=== PATIENT | female | born 1970 | race Caucasian/White ===

== ENCOUNTER 2016-04-16 13:15 | Inpatient (IN) ==
[2016-04-16] MEDS ORDERED: *HR* Promethazine 25 MG/ML VIAL IVP ONE (13:28)
[2016-04-16] MEDS ORDERED: 0.9 % Sodium Chloride 1,000 ML IV ONE ×2 (13:49→16:49)
[2016-04-16] MEDS ORDERED: Metoclopramide 10 MG/2 ML VIAL IVP ONE (13:49)
[2016-04-16] MEDS ORDERED: Ketorolac 30 MG/ML VIAL IV ONE (13:50)
--- NOTE | 2016-04-16 14:07 | Emergency Department Note ---
Disposition Clinical Impression: Malignant hypertension, Tension headache Abdominal pain Qualifiers: Abdominal location: unspecified location Qualified Code(s): R10.9 - Unspecified abdominal pain Nausea & vomiting Qualifiers: Vomiting type: cyclical vomiting Vomiting Intractability: unspecified Qualified Code(s): G43.A0 - Cyclical vomiting, not intractable Disposition: Admitted As Inpatient Condition: Good Referrals: NO,PCP [Primary Care Provider] - Forms: ED Satisfaction Letter Time of Disposition: 17:56 General Adult HPI - General Chief complaint: ED Headache Stated complaint: HTN / N&V / Headache Time Seen by Provider: 04/16/16 13:45 Source: patient, family Mode of arrival: ambulatory Limitations: no limitations Nursing Notes Reviewed: Yes Vital Signs Reviewed: Yes - History of Present Illness HPI Narrative: Patient presents emergency room for evaluation nausea vomiting headache and hypertension. She was seen here just yesterday for similar symptoms. She was home last night and progression of symptoms or she is throwing up again. They had attempted to use the home medication and then wander evaluated. Patient's only symptoms on and off for the last 2013. The symptoms come on and last about 4 months at a time. She has had multiple evaluations by outside providers and has not found a source for this at this time. Patient is comfortable at this point. She does complain of nausea vomiting and headache. Denies any recent illnesses no chest pain shortness of breath no fevers or chills at this time. Patient is crying and distressed on presentation Onset (ago): day(s) Location: head, abdomen Radiation: non-radiation Pain Severity: moderate Pain Scale: 9 Quality: aching Consistency: constant Improves with: nothing Worsens with: nothing Associated symptoms: Reports: headaches, loss of appetite, nausea/vomiting Treatments Prior to Arrival: none - Related Data Home Medications Medication Instructions Recorded Confirmed BuPROPion SR (12 HR) [Wellbutrin 150 mg PO BID 12/07/15 04/16/16 SR] Labetalol HCl 200 mg PO BID 12/07/15 04/16/16 Norethindrone 0.35 mg PO DAILY PRN 12/07/15 04/16/16 Sertraline [Zoloft] 50 mg PO DAILY 12/07/15 04/16/16 Previous Rx's Medication Instructions Recorded Metoclopramide [Reglan] 5 mg PO Q6HR PRN #15 [email or web address] 12/10/15 Lisinopril [Zestril] 5 mg PO DAILY #15 tablet 12/23/15 Allergies Allergy/AdvReac Type Severity Reaction Status Date / Time No Known Allergies Allergy Verified 04/15/16 05:45 All systems ED: reviewed and negative except as stated. Constitutional: Denies: fever, chills Eyes: Reports: vision change Cardiovascular: Denies: chest pain (Blurry vision), palpitations, dyspnea on exertion Respiratory: Denies: dyspnea, wheezes, hemoptysis Gastrointestinal: Reports: abdominal pain, nausea, vomiting. Denies: diarrhea Genitourinary: Denies: dysuria, frequency Musculoskeletal: Denies: back pain, neck pain Neurological: Reports: headache. Denies: weakness Past Medical History - Past Medical History Attestation: Yes The following information was validated with the patient. Source: patient Medical history: Reports: hypertension, migraine Surgical history: Reports: , cholecystectomy, other Psychiatric history: Reports: depression SAFETY TRAINER history: Reports: no SAFETY TRAINER history - Social History Smoking Status: Never smoker Smokeless Tobacco Status: No Alcohol use: Reports: rarely Drug use: Reports: none Physical Exam - General Limitations: no limitations General appearance: alert - Head Head exam: atraumatic, normocephalic, normal inspection - Eye Eye exam: Present: normal appearance, PERRL, EOMI - ENT ENT exam: normal exam, normal oropharynx, mucous membranes moist - Neck Neck exam: Present: normal inspection, full ROM, trachea midline. Absent: tenderness, meningismus, lymphadenopathy - Chest Chest inspection: Present: normal inspection, symmetric chest wall rise. Absent : tenderness - Respiratory Respiratory exam: Present: normal lung sounds bilaterally. Absent: respiratory distress, wheezes, stridor, accessory muscle use - Cardiovascular Cardiovascular exam: Present: regular rate, normal rhythm, normal heart sounds - Abdominal Exam Abdominal exam: Present: soft, tenderness (Tenderness noted diffusely across the abdomen no guarding no rigidity no peritoneal symptoms) - Extremities Exam Extremities exam: Present: normal inspection, full ROM, pedal edema. Absent: tenderness - Back Exam Back exam: Present: normal inspection, full ROM. Absent: tenderness, CVA tenderness (R), CVA tenderness (L) - Neurological Exam Neurological exam: Present: alert, oriented X3, CN II-XII intact, normal gait - Psychiatric Psychiatric exam: Present: normal affect, normal mood - Skin Skin exam: Present: warm, dry, intact, normal color Course Course Narrative: Patient seen and examined the time of arrival. See history of present illness. 46-year-old female presents emergency room with hypertension nausea and vomiting and abdominal pain. Patient has a symptoms on and off for approximately 4 months at a time. She has had these for approximately 2-1/2 years at this point. Patient was seen and evaluated in this emergency room just 2 days ago and was discharged home with non-concerning workup at that point. Patient is back here again today with what she is describing is significantly elevated blood pressure at home. Will send serum presentation show hypertension intermittent tachycardia. She is afebrile. Physical examination shows a morbidly obese female who appears in some mild distress. Patient's symptoms appear to be exaggerated on presentation. She has poorly controlled nausea and vomiting with intramuscular dose of Phenergan provided to in the waiting area of our emergency room. Her lungs are clear heart is regular abdomen is soft but does have tenderness diffusely. No guarding or rigidity noted. She has full range of motion in upper and lower extremities. There is no asymmetry to the extremity she has no pitting edema. She has good palpable radial DP and PT pulses. Patient at this point has stable presentation in comparison to multiple previous evaluations and several other incidences like this in the past. P physical examination is benign except for the abdominal discomfort. Patient had previous workup as well as imaging studies reviewed. No other acute imaging studies were performed in the last 6 months. Radiation exposure was discussed with the patient but she is requesting a further evaluation. IV hydration and nausea medication basic laboratory workup including EKG chest x-ray CT of the head and CT of the abdomen ordered at this time. Urinalysis pending. Patient has no other acute findings on physical exam disposition pending workup. - Reevaluation(s) Reevaluation #1: Patient has had mild resolution of her symptoms here with pain medication only medication being provided. Blood pressure is 189/100 of this point. After reviewing patient's symptoms and history is finally disclosed to me that when the patient's blood pressure is under 140 systolic over symptoms go away. All of her symptoms appear to be secondary to hypertension or some anxiety related issue at this point. We will continue to monitor her pressure medication provided this time. Disposition pending completion of workup Time: 16:00 Reevaluation #2: Patient is still persistently hypertensive with 2 doses of IV labetalol as well as morphine. Patient be placed on nitro drip now. Blood pressures remained at 190-200 systolic with medical intervention. Patient is still having poorly controlled nausea and vomiting. Patient this point will be placed on nitro drip and discussed with the hospitalist for admission what appears to be malignant hypertension but no visible endorgan damage. Monitors admission process is completed Time: 17:52 Reevaluation #3: Nitroglycerin drip ordered and started this time. Patient is still unresponsive. We will continue to titrate up until blood pressure is more manageable and will admit detailed review the patient's presentation symptoms of medical intervention were discussed with the hospitalist Dr. reyes in great detail. Her recommendation at this time or to add on hydralazine 10 mg. 1 inch informed patient of our discussion and recommendation for admission. Patient's family was happy with the projected course of care disposition. Patient's vital signs been persistently hypertensive at the hospitalist is aware. We will continue to monitor his hydralazine was given and nitroglycerin was titrated for symptom control. Patient is stable and good medical condition. She will be observed here in the emergency room until the admission process is completed Time: 19:01 Additional Reevaluation(s): Hospitalist is at the bedside evaluating the patient. Hydralazine was given. Blood pressure is still elevated at 196/111. Nitro drip to continue to be titrated for symptoms. Patient stable admission process to be completed Vital Signs Temperature 97.9 F 04/16/16 13:17 Pulse Rate 77 04/16/16 13:17 Respiratory Rate 16 04/16/16 13:17 Blood Pressure 202/109 04/16/16 13:17 O2 Sat by Pulse Oximetry 97 04/16/16 13:17 Temperature 97.9 F 04/16/16 13:17 Pulse Rate 78 04/16/16 19:48 Respiratory Rate 16 04/16/16 19:48 Blood Pressure 217/121 04/16/16 19:48 O2 Sat by Pulse Oximetry 96 04/16/16 19:48 Oxygen Delivery Oxygen Delivery Room Air Medical Decision Making - MDM Narrative Medical decision making narrative: Nausea vomiting, hypertension, abdominal pain - Medical Records Medical records reviewed: Yes I reviewed the patient's medical records. - Lab Data Lab results reviewed: Yes I reviewed the patient's lab results. Result diagrams: 04/16/16 14:11 04/16/16 14:11 Lab Results 04/16/16 04/16/16 04/16/16 Range/Units 14:11 14:11 16:20 WBC 14.6 H (4.3-11.1) K/mcL RBC 5.38 H (3.82-4.97) M/mcL Hgb 15.7 H (11.5-15.4) g/dL Hct 45.6 H (35.3-44.9) % MCV 84.8 (83.0-100.0) fL MCH 29.2 (28.0-33.3) pg MCHC 34.4 (31.6-35.5) g/dL RDW 13.0 (11.5-14.5) % Plt Count 312 (140-400) K/mcL MPV 10.5 (9.4-12.4) fL Immature Gran % 0.4 (0-4) % Seg Neutrophils % 74.7 % Lymphocytes % 19.2 % Monocytes % 5.2 % Eosinophils % 0.1 % Basophils % 0.4 % Neutrophils # 10.9 H (1.6-8.9) K/mcL Lymphocytes # 2.8 (0.6-4.6) K/mcL Monocytes # 0.8 (0.0-1.3) K/mcL Eosinophils # 0.0 (0.0-0.6) K/mcL Basophils # 0.1 (0.0-0.2) K/mcL Sodium 135 L (136-145) mEq/L Potassium 3.2 L (3.5-4.5) mEq/L Chloride 99 (98-109) mEq/L Carbon Dioxide 24 (19-29) mEq/L BUN 10 (7-20) mg/dL Creatinine 0.72 (0.57-1.11) mg/dL Est GFR ( Amer) > 60 (> 60) Est GFR (Non-Af Amer) > 60 (> 60) BUN/Creatinine Ratio 14 (6-26) Glucose 119 H (70-99) mg/dL Calculated Osmolality 280 (280-300) Calcium 10.2 (8.6-10.8) mg/dL Urine Color (Yellow) Urine Clarity (Clear) Urine pH (5.0-8.0) pH Units Ur Specific [place] (1.010-1.025) Urine Protein (Neg-Trace) mg/dL Urine Glucose (UA) (Normal) mg/dL Urine Ketones (Negative) mg/dL Urine Blood (Negative) Urine Nitrite (Negative) Urine Bilirubin (Negative) Urine Urobilinogen (Normal) mg/dL Ur Leukocyte Esterase (Negative) Urine Microscopic RBC (0-3) per hpf Urine Microscopic WBC (0-3) per hpf Ur Squamous Epith Cells (None-Few) per lpf Urine Bacteria (None-Few) per hpf Hyaline Casts (None-Few) per lpf Urine Mucus (Few) Ur Culture Indicated? (NO) Urine Test Negative (Negative) 04/16/16 Range/Units 16:20 WBC (4.3-11.1) K/mcL RBC (3.82-4.97) M/mcL Hgb (11.5-15.4) g/dL Hct (35.3-44.9) % MCV (83.0-100.0) fL MCH (28.0-33.3) pg MCHC (31.6-35.5) g/dL RDW (11.5-14.5) % Plt Count (140-400) K/mcL MPV (9.4-12.4) fL Immature Gran % (0-4) % Seg Neutrophils % % Lymphocytes % % Monocytes % % Eosinophils % % Basophils % % Neutrophils # (1.6-8.9) K/mcL Lymphocytes # (0.6-4.6) K/mcL Monocytes # (0.0-1.3) K/mcL Eosinophils # (0.0-0.6) K/mcL Basophils # (0.0-0.2) K/mcL Sodium (136-145) mEq/L Potassium (3.5-4.5) mEq/L Chloride (98-109) mEq/L Carbon Dioxide (19-29) mEq/L BUN (7-20) mg/dL Creatinine (0.57-1.11) mg/dL Est GFR ( Amer) (> 60) Est GFR (Non-Af Amer) (> 60) BUN/Creatinine Ratio (6-26) Glucose (70-99) mg/dL Calculated Osmolality (280-300) Calcium (8.6-10.8) mg/dL Urine Color Dark Yellow (Yellow) Urine Clarity Cloudy A (Clear) Urine pH 6.5 (5.0-8.0) pH Units Ur Specific [place] > 1.030 H (1.010-1.025) Urine Protein >=300 H (Neg-Trace) mg/dL Urine Glucose (UA) Normal (Normal) mg/dL Urine Ketones 80 H (Negative) mg/dL Urine Blood Negative (Negative) Urine Nitrite Negative (Negative) Urine Bilirubin Small H (Negative) Urine Urobilinogen Normal (Normal) mg/dL Ur Leukocyte Esterase Negative (Negative) Urine Microscopic RBC 5-15 H (0-3) per hpf Urine Microscopic WBC 5-15 H (0-3) per hpf Ur Squamous Epith Cells Many H (None-Few) per lpf Urine Bacteria Many H (None-Few) per hpf Hyaline Casts None Seen (None-Few) per lpf Urine Mucus Many H (Few) Ur Culture Indicated? YES A (NO) Urine Test (Negative) - Radiology Data Radiology results reviewed: Yes I reviewed the patient's radiology results. - EKG Data EKG #1 EKG attestation: Yes I reviewed and interpreted this EKG. EKG shows normal: sinus rhythm, axis, intervals, QRS complexes, ST-T waves Rate: tachycardia Rhythm: NSR [place]/QRS: normal When compared to previous EKG there are: no significant changes Interpretation: no acute changes, unchanged when compared to prior tracing (date )
[2016-04-16] MEDS ORDERED: Promethazine 25 MG in 0.9 % Sodium Chloride 50 ML IVPB ONE (14:14)
--- NOTE | 2016-04-16 14:25 | Emergency Department Note ---
START Narrative - START START: I examined this patient and my medical decision-making was reviewed with the CUSTOMER SERVICES COORDINATOR/PA/Advanced Practice Nurse/Resident Physician. I agree with the documented findings, disposition and treatment plan as described except to the extent set forth below. ED attending: Patient's emergency medicine resident Dr. Maddox. Please see copy of this note for H&P evaluation and management and ED disposition. We both had independent [id number] time in contact with this patient. Briefly: A 6-year-old female presents with abdominal cramping nausea and vomiting. Has had multiple workups in the past including GI consultation and multiple imaging studies. Patient was just seen by myself yesterday and Dr. Ordoñez. Please see copy of our notes. Patient was discharged home. She said she maintained elevated blood pressure and intractable nausea and vomiting all night is back with same symptoms. Patient is getting IV fluids anti-medics labs. Admission anticipated. Patient stable.
[2016-04-16 14:30] LABS: Basophils # 0.1 K/mcL (0.0-0.2); Basophils % 0.4 %; Eosinophils % 0.1 %; Hematocrit 45.6 % (35.3-44.9); Hemoglobin 15.7 g/dL (11.5-15.4); Immature Granulocytes % 0.4 % (0-4); Lymphocytes # 2.8 K/mcL (0.6-4.6); Lymphocytes % 19.2 %; Mean Corpuscular HGB Conc 34.4 g/dL (31.6-35.5); Mean Corpuscular Hemoglobin 29.2 pg (28.0-33.3); Mean Corpuscular Volume 84.8 fL (83.0-100.0); Mean Platelet Volume 10.5 fL (9.4-12.4); Monocytes # 0.8 K/mcL (0.0-1.3); Monocytes % 5.2 %; Neutrophils # 10.9 K/mcL (1.6-8.9); Platelet Count 312 K/mcL (140-400); Red Blood Count 5.38 M/mcL (3.82-4.97); Segmented Neutrophils % 74.7 %
[2016-04-16 14:42] LABS: BUN/Creatinine Ratio 14 (6-26); Blood Urea Nitrogen 10 mg/dL (7-20); Calcium 10.2 mg/dL (8.6-10.8); Carbon Dioxide 24 mEq/L (19-29); Chloride 99 mEq/L (98-109); Glucose 119 mg/dL (70-99); Osmolality,Calculated 280 (280-300); Potassium 3.2 mEq/L (3.5-4.5); Sodium 135 mEq/L (136-145); eGFR For African Americans > 60 (> 60); eGFR For Non-African Americans > 60 (> 60)
[2016-04-16] MEDS ORDERED: *HR* Labetalol 20 MG/4 ML SYRINGE IVP ONE ×2 (15:53→16:57)
[2016-04-16 16:33] LABS: Bilirubin,Urine Small (Negative); Blood,Urine Negative (Negative); Clarity,Urine Cloudy (Clear); Color,Urine Dark Yellow (Yellow); Glucose,Urine (UA) Normal (Normal); Ketones,Urine 80 mg/dL (Negative); Leukocyte Esterase,Urine Negative (Negative); Nitrite,Urine Negative (Negative); PH,Urine 6.5 pH Units (5.0-8.0); Protein,Urine >=300 mg/dL (Neg-Trace); Specific Gravity,Urine > 1.030 (1.010-1.025); Urobilinogen,Urine Normal (Normal)
[2016-04-16 16:34] LABS: Hyaline Casts,Urine None Seen per lpf (None-Few); Squamous Epithelial Cell,Urine Many per lpf (None-Few)
[2016-04-16 16:46] LABS: Bacteria,Urine Many per hpf (None-Few); Mucus,Urine Many (Few)
[2016-04-16] MEDS ORDERED: *HR* Morphine 2 MG/ML SYRINGE IV ONE (17:32)
[2016-04-16] MEDS ORDERED: Nitroglycerin 25 MG/250 ML INFUS..BTL IVC SCH (18:00)
[2016-04-16] MEDS ORDERED: Folic Acid 1 MG in D5% in Water 50 ML IVPB STA (20:01)
[2016-04-16] MEDS ORDERED: *HR* HYDROcodone/Acet 5/325 mg TABLET PO PRN (21:37)
[2016-04-16] MEDS ORDERED: Acetaminophen 325 MG TABLET PO PRN (21:37)
[2016-04-16] MEDS ORDERED: Naloxone 0.4 MG/ML INJ IVP PRN (21:37)
[2016-04-16] MEDS ORDERED: *HR* Promethazine 25 MG/ML VIAL IVP PRN (21:37)
[2016-04-16] MEDS: Pantoprazole 40 MG VIAL IVP SCH (22:32)
[2016-04-16] MEDS: Nitroglycerin 25 MG/250 ML INFUS..BTL IVC SCH (22:33)
[2016-04-16] MEDS: *HR* Morphine 2 MG/ML SYRINGE IVP PRN (22:33)
[2016-04-16 22:42] LABS: Magnesium 1.9 mg/dL (1.6-2.6); Phosphorous 2.3 mg/dL (2.3-4.7)
[2016-04-17] MEDS: Thiamine (B-1) 100 MG in D5% in Water 50 ML IVPB SCH ×2 (02:04→08:05)
[2016-04-17 02:54] LABS: Protein/Creatinine Ratio,Urine 0.17 mg/mg (0-0.20)
[2016-04-17] MEDS: *HR* Morphine 2 MG/ML SYRINGE IVP PRN (05:03)
[2016-04-17 05:26] LABS: Basophils # 0.1 K/mcL (0.0-0.2); Basophils % 0.4 %; Eosinophils % 0.1 %; Hematocrit 40.6 % (35.3-44.9); Immature Granulocytes % 0.4 % (0-4); Lymphocytes % 15.7 %; Mean Corpuscular Hemoglobin 29.1 pg (28.0-33.3); Mean Corpuscular Volume 85.7 fL (83.0-100.0); Mean Platelet Volume 10.4 fL (9.4-12.4); Monocytes # 1.5 K/mcL (0.0-1.3); Monocytes % 7.9 %; Neutrophils # 14.3 K/mcL (1.6-8.9); Platelet Count 300 K/mcL (140-400); Red Blood Count 4.74 M/mcL (3.82-4.97); Red Cell Distribution Width 12.9 % (11.5-14.5); Segmented Neutrophils % 75.5 %
[2016-04-17 05:29] LABS: Hemoglobin 13.8 g/dL (11.5-15.4)
[2016-04-17] MEDS ORDERED: *HR* LORazepam 2 MG/ML VIAL IVP PRN (05:42)
[2016-04-17] MEDS ORDERED: 0.9 % Sodium Chloride 1,000 ML IVC SCH (05:45)
[2016-04-17 05:50] LABS: BUN/Creatinine Ratio 19 (6-26); Blood Urea Nitrogen 12 mg/dL (7-20); Calcium 9.6 mg/dL (8.6-10.8); Carbon Dioxide 20 mEq/L (19-29); Chloride 102 mEq/L (98-109); Glucose 118 mg/dL (70-99); Osmolality,Calculated 281 (280-300); Potassium 3.2 mEq/L (3.5-4.5); Sodium 135 mEq/L (136-145); eGFR For African Americans > 60 (> 60); eGFR For Non-African Americans > 60 (> 60)
--- NOTE | 2016-04-17 05:53 | Internal Med History&Physical ---
<Ariadna Mcneil - Last Filed: 04/17/16 06:41> Date of Encounter: 04/16/16 Time of Encounter: 21:00 Assessment and Plan (1) Malignant hypertension Status: Acute BP upon presentation to the hospital 202/109 Patient given 2 doses of labetalol 10 mg IV, 10 mg hydralazine IV, and 4 mg IV morphine in the ED Patient started on nitroglycerin drip and titrated to [address] patient on telemetry and continue to monitor Labs, pending -Metanephrine -aldosterone, renin activity -5 HIAA random urine, 5 HIAA 24 h urine -tsh, T3, free T4 -Prolactin -Urine potassium, urine sodium Consider home medications as cause of hypertension including Wellbutrin, Zoloft , Reglan Consult neurology Consult nephrology (2) Nausea & vomiting Status: Acute Continue IV Phenergan prn Continue IV fluid hydration Qualifiers: Vomiting type: cyclical vomiting Vomiting Intractability: intractable Qualified Code(s): G43.A1 - Cyclical vomiting, intractable (3) UTI (urinary tract infection) Status: Acute WBC 14.6, lymphocytes elevated at 10.9 Will treat empirically with Rocephin Culture, pending Qualifiers: Urinary tract infection type: acute cystitis Hematuria presence: with hematuria Qualified Code(s): N30.01 - Acute cystitis with hematuria (4) Abdominal pain Status: Acute Abdominal pain likely secondary to intractable vomiting for 2 days IV phenegran prn to treat vomiting CT abdomen without acute intra-abdominal or intrapelvic process, urinary stones , hydronephrosis -Diffuse hepatic steatosis -Stable uterine fibroids. Qualifiers: Abdominal location: generalized Qualified Code(s): R10.84 - Generalized abdominal pain (5) Hyponatremia Status: Acute Repeat labs in a.m. Random urine sodium (6) Hypokalemia Status: Acute Repeat labs in a.m. Random urine potassium (7) Dehydration Status: Acute Patient received 2L fluids in ED IVF 100ml/hr Internal Medicine - H&P: HPI Chief complaint: hypertension, headache, nausea, vomiting Admitted From: Emergency Dept Plans for Post Hospital Care: Home History of present illness: Ms. Stoddard is a 46 year old female who presents to the hospital with her mother. Patient states that on 04/14/2016 she began having an episode of headache with nausea and vomiting after eating lunch. Patient states that she took her blood pressure at home which was greater than 200 systolic. Patient states that her head is pounding. Headache is located at bilateral temples and radiates inferiorly to the neck. She also has pain across the frontal face and maxillary face. She feels like her head is going to explode. She states that she does have a history of migraine, but this is not a migraine. She feels dizzy, lightheaded, woozy, and struggles to ambulate. Admits multiple episodes of nausea and vomiting. These episodes come in waves. Admits chest pain episode yesterday associated with palpitations, racing heart, diaphoresis, chills. Admits diarrhea at the onset of this episode 2 days ago. Admits aversion to smell at this time. Patient denies blurry vision, double vision, changes to vision, and scotoma. She also denies photophobia and phonophobia. Patient states that she presented to the ED 04/15/2016 for this problem, was seen and evaluated, and was discharged home. Patient has had multiple such episodes in the past. She said episodes began in 2013 when she was with her daughter Hoa. Patient had to have cholecystectomy during the at [facility]. Daughter Hoa was born premature at 25 weeks. Daughter 4 weeks after . Episodes of hypertension continued in 2013. Hypertensive episodes returned in 2015, and patient was seen in various hospitals in September, October, November, and December. Patient was admitted in December 2015 for hypertensive urgency. Past Med Surg Social Fam HX - Past Medical History Medical history: hypertension, migraine, other (Nondiabetic gastroparesis) Psychiatric history: depression - Past Surgical History Surgical History: , cholecystectomy, other - Social History Smoking Status: Never smoker Smokeless Tobacco Status: No Alcohol use: rarely Drug use: none - Family History Mother Name: Keila abebe Age: 71 Living Status: Still Living Hx Family Endocrine Disorder: Yes (DM) Internal Medicine - H&P: Meds BuPROPion SR (12 HR) [Wellbutrin SR] 150 mg PO BID 12/07/15 [History] Labetalol HCl 200 mg PO BID 12/07/15 [History] Norethindrone 0.35 mg PO DAILY PRN 12/07/15 [History] Sertraline [Zoloft] 50 mg PO DAILY 12/07/15 [History] Metoclopramide [Reglan] 5 mg PO Q6HR PRN #15 ud.liq 12/10/15 [Rx] Lisinopril [Zestril] 5 mg PO DAILY #15 tablet 12/23/15 [Rx] Blood Pressure Test Kit-Medium [Blood Pressure Cuff Monitor] 1 each MC DAILY #1 kit 04/18/16 [Rx] CloNIDine HCl 0.1 mg PO DAILY PRN #20 tablet 04/18/16 [Rx] Topiramate [Topamax] 50 mg PO HS #30 cap.sprink 04/18/16 [Rx] Allergies No Known Allergies Allergy (Verified 04/15/16 05:45) All Systems PM: A 10-system review of systems was performed and is negative for pertinent findings except as documented above in the HPI. - Constitutional Constitutional: chills, excessive sweating, no fever(s) - EENT Eyes: no blurry vision, no change in vision, no diplopia, no floaters, no loss of vision, no photophobia, no seeing flashes, no spots in vision Nose, mouth and throat: facial pain (Frontal and maxillary), neck pain - Cardiovascular Cardiovascular ROS IM: diaphoresis, irregular heart rhythm, lightheadedness, palpitations - Gastrointestinal Gastrointestinal: diarrhea, nausea, vomiting, no hematochezia, no melena - Musculoskeletal Musculoskeletal ROS IM: no myalgias - Psychiatric Psychiatric: anxiety, depression - Constitutional Vitals: Temp Pulse Resp BP Pulse Ox 98.6 F 70 13 156/95 96 04/17/16 00:30 04/17/16 00:30 04/17/16 00:30 04/17/16 00:30 04/17/16 00:30 General appearance: Present: mild distress (vomiting intermittently during interview), A&O X 3, pleasant (tearful when discussing loosing her daughter), answers questions appropriately - Head Head exam: Present: atraumatic, normal inspection, normocephalic - Eye Eye exam: Present: EOMI - ENT ENT exam: Present: mucous membranes dry - Neck Neck exam general surgery: Present: full ROM, normal inspection, tenderness ( posterior neck at OA joint on left), supple - Respiratory Respiratory exam: Present: CTAB. Absent: rhonchi, wheezes - Cardiovascular Cardiovascular exam: Present: RRR, +S1, +S2 - GI/Abdominal GI/Abdominal exam: Present: normal bowel sounds, soft, tenderness (tenderness to palpation in all quadrants). Absent: distended - Extremities Exam Extremities exam: Present: normal inspection. Absent: pedal edema - Neurological Exam Neurological exam: Present: CN II-XII intact, strengths equal and symetr throughout. Absent: facial droop, speech deficit - Psychiatric Psychiatric exam: Present: normal affect, normal mood - Skin Skin exam: Present: warm Internal Med - H&P Results - Labs CBC & Chem 7: 04/17/16 05:06 04/17/16 05:06 Labs: Short CBC 04/17/16 Range/Units 05:06 WBC 18.9 H (4.3-11.1) K/mcL Hgb 13.8 D (11.5-15.4) g/dL Hct 40.6 (35.3-44.9) % Plt Count 300 (140-400) K/mcL Neutrophils # 14.3 H (1.6-8.9) K/mcL Cardiac Enzymes 04/16/16 Range/Units 22:22 Troponin I 0.01 (0-0.03) ng/mL - EKG Data -: EKG Interpreted by Myself EKG shows normal: sinus rhythm Rate: normal - Impressions Abdomen/Pelvis CT 04/16/16 13:51 IMPRESSION: 1. No acute intra-abdominal or intrapelvic process. 2. No urinary stones or hydronephrosis. 3. Diffuse hepatic steatosis. 4. Patient status post cholecystectomy. 5. Stable uterine fibroids. D/ / 04/16/2016 15:32:03 Avel Guaman MD / toby Interpreting Provider: Avel Guaman MD Head CT 04/16/16 13:51 IMPRESSION: No acute intracranial abnormality. D/ / Sai Rajan MD / Sai Rajan MD Interpreting Provider: Sai Rajan MD Chest X-Ray 04/16/16 15:03 IMPRESSION: No acute cardiopulmonary disease. D/ / 04/16/2016 15:38:31 Avel Guaman MD / dwayne Interpreting Provider: Avel Guaman MD - Attending Attestation I examined this patient and my medical decision-making was reviewed with the BOAT CAPTAIN/PA/Advanced Practice Nurse/Resident Physician. I agree with the documented findings, disposition and treatment plan as described except to the extent set forth below. <Neil Antoine - Last Filed: 04/21/16 00:53> Date of Encounter: 04/16/16 Internal Medicine - H&P: HPI History of present illness: Ms. Stoddard is a 46 year old female to [facility] with a chief complaint of controlled hypertension associated with intractable nausea, vomiting and headache. The patient was visited interviewed and examined. I examined this patient and my medical decision-making was reviewed with the Resident Physician. I agree with the documented findings, disposition and treatment plan as described except to the extent set forth below. Cumulative laboratory and radiographic database was reviewed and considered and discussed. Pertinent ancillary medical records including ECW and PCI documentation was available was reviewed and considered. Given the patient's presenting concerns, past medical history, clinical findings and symptoms, she is admitted at this time to undergo further evaluation and disposition. Orders were written as per the computerized physician job order clerk system........................ All Systems PM: A 10-system review of systems was performed and is negative for pertinent findings except as documented above in the HPI. - Constitutional Vitals: Temp Pulse Resp BP Pulse Ox 98.2 F 84 16 121/62 96 04/18/16 11:10 04/18/16 11:55 04/18/16 11:10 04/18/16 11:10 04/18/16 11:10 Internal Med - H&P Results - Labs CBC & Chem 7: 04/18/16 06:22 04/18/16 06:22 - Impressions Abnormal lab results Sodium 134 mEq/L (136-145) L 04/18/16 06:22 Potassium 3.3 mEq/L (3.5-4.5) L 04/18/16 06:22 Calculated Osmolality 278 (280-300) L 04/18/16 06:22 Free T4 1.62 ng/dl (0.70-1.48) H 04/18/16 06:22 Prolactin 42.22 ng/mL (5.18-26.53) H 04/18/16 06:22 Urine Clarity Cloudy (Clear) A 04/16/16 16:20 Ur Specific Stanley > 1.030 (1.010-1.025) H 04/16/16 16:20 Urine Protein >=300 mg/dL (Neg-Trace) H 04/16/16 16:20 Urine Ketones 80 mg/dL (Negative) H 04/16/16 16:20 Urine Bilirubin Small (Negative) H 04/16/16 16:20 Urine Microscopic RBC 5-15 per hpf (0-3) H 04/16/16 16:20 Urine Microscopic WBC 5-15 per hpf (0-3) H 04/16/16 16:20 Ur Squamous Epith Cells Many per lpf (None-Few) H 04/16/16 16:20 Urine Bacteria Many per hpf (None-Few) H 04/16/16 16:20 Urine Mucus Many (Few) H 04/16/16 16:20 Ur Culture Indicated? YES (NO) A 04/16/16 16:20 Microalb/Creat Ratio 54 (0-30) H 04/17/16 02:15 Urine Total Protein 30 mg/dL (1-14) H 04/17/16 02:15 Laboratory Results WBC 9.6 K/mcL (4.3-11.1) 04/18/16 06:22 RBC 4.97 M/mcL (3.82-4.97) 04/18/16 06:22 Hgb 14.4 g/dL (11.5-15.4) 04/18/16 06:22 Hct 43.3 % (35.3-44.9) 04/18/16 06:22 MCV 87.1 fL (83.0-100.0) 04/18/16 06:22 MCH 29.0 pg (28.0-33.3) 04/18/16 06:22 MCHC 33.3 g/dL (31.6-35.5) 04/18/16 06:22 RDW 13.2 % (11.5-14.5) 04/18/16 06:22 Plt Count 258 K/mcL (140-400) 04/18/16 06:22 MPV 10.3 fL (9.4-12.4) 04/18/16 06:22 Immature Gran % 0.4 % (0-4) 04/18/16 06:22 Seg Neutrophils % 56.5 % 04/18/16 06:22 Lymphocytes % 30.1 % 04/18/16 06:22 Monocytes % 10.2 % 04/18/16 06:22 Eosinophils % 2.1 % 04/18/16 06:22 Basophils % 0.7 % 04/18/16 06:22 Neutrophils # 5.5 K/mcL (1.6-8.9) 04/18/16 06:22 Lymphocytes # 2.9 K/mcL (0.6-4.6) 04/18/16 06:22 Monocytes # 1.0 K/mcL (0.0-1.3) 04/18/16 06:22 Eosinophils # 0.2 K/mcL (0.0-0.6) 04/18/16 06:22 Basophils # 0.1 K/mcL (0.0-0.2) 04/18/16 06:22 Immature Plt Fraction 4.7 % (1.1-6.1) 04/18/16 06:22 Sodium 134 mEq/L (136-145) L 04/18/16 06:22 Potassium 3.3 mEq/L (3.5-4.5) L 04/18/16 06:22 Chloride 101 mEq/L (98-109) 04/18/16 06:22 Carbon Dioxide 23 mEq/L (19-29) 04/18/16 06:22 BUN 13 mg/dL (7-20) 04/18/16 06:22 Creatinine 0.84 mg/dL (0.57-1.11) 04/18/16 06:22 Est GFR ( Amer) > 60 (> 60) 04/18/16 06:22 Est GFR (Non-Af Amer) > 60 (> 60) 04/18/16 06:22 BUN/Creatinine Ratio 15 (6-26) 04/18/16 06:22 Glucose 98 mg/dL (70-99) 04/18/16 06:22 Est Mean Plasma Glucose 100 mg/dl 04/18/16 06:22 Hemoglobin A1c 5.1 % (-5.6) 04/18/16 06:22 Calculated Osmolality 278 (280-300) L 04/18/16 06:22 Calcium 9.7 mg/dL (8.6-10.8) 04/18/16 06:22 Phosphorus 3.1 mg/dL (2.3-4.7) 04/18/16 06:22 Magnesium 1.7 mg/dL (1.6-2.6) 04/18/16 06:22 Troponin I 0.01 ng/mL (0-0.03) 04/16/16 22:22 Triglycerides 149 mg/dL (< 150) 04/18/16 06:22 Cholesterol 162 mg/dL (< 200) 04/18/16 06:22 LDL Cholesterol, Calc 89 mg/dL (0-99) 04/18/16 06:22 VLDL Cholesterol, Calc 30 mg/dL (< 31) 04/18/16 06:22 HDL Cholesterol 43 mg/dL (40-59) 04/18/16 06:22 Cholesterol/HDL Ratio 3.8 (0-4.9) 04/18/16 06:22 Aldosterone 4.4 ng/dL 04/16/16 22:22 TSH 1.177 mcIU/mL (0.350-4.840) 04/18/16 06:22 Free T4 1.62 ng/dl (0.70-1.48) H 04/18/16 06:22 Free T3 2.31 pg/mL (1.71-3.71) 04/18/16 06:22 Prolactin 42.22 ng/mL (5.18-26.53) H 04/18/16 06:22 Urine Color Dark Yellow (Yellow) 04/16/16 16:20 Urine Clarity Cloudy (Clear) A 04/16/16 16:20 Urine pH 6.5 pH Units (5.0-8.0) 04/16/16 16:20 Ur Specific Stanley > 1.030 (1.010-1.025) H 04/16/16 16:20 Urine Protein >=300 mg/dL (Neg-Trace) H 04/16/16 16:20 Urine Glucose (UA) Normal mg/dL (Normal) 04/16/16 16:20 Urine Ketones 80 mg/dL (Negative) H 04/16/16 16:20 Urine Blood Negative (Negative) 04/16/16 16:20 Urine Nitrite Negative (Negative) 04/16/16 16:20 Urine Bilirubin Small (Negative) H 04/16/16 16:20 Urine Urobilinogen Normal mg/dL (Normal) 04/16/16 16:20 Ur Leukocyte Esterase Negative (Negative) 04/16/16 16:20 Urine Microscopic RBC 5-15 per hpf (0-3) H 04/16/16 16:20 Urine Microscopic WBC 5-15 per hpf (0-3) H 04/16/16 16:20 Ur Squamous Epith Cells Many per lpf (None-Few) H 04/16/16 16:20 Urine Bacteria Many per hpf (None-Few) H 04/16/16 16:20 Hyaline Casts None Seen per lpf (None-Few) 04/16/16 16:20 Urine Mucus Many (Few) H 04/16/16 16:20 Ur Culture Indicated? YES (NO) A 04/16/16 16:20 Ur Collection Duration RANDOM hr 04/17/16 02:15 Urine Total Volume RANDOM mL 04/17/16 02:15 Urine Creatinine 177 mg/dL 04/17/16 02:15 Ur Creatinine mg/Day NOT APPLICABLE mg/d (700-1600) 04/17/16 02:15 Urine Creatinine 177 mg/dL 04/17/16 02:15 Urine Microalbumin 95 mg/L 04/17/16 02:15 Microalb/Creat Ratio 54 (0-30) H 04/17/16 02:15 Protein/Creatinin Ratio 0.17 mg/mg (0-0.20) 04/17/16 02:15 Urine Sodium 130.0 mEq/L 04/17/16 02:15 Urine Potassium 76.0 mEq/L 04/17/16 02:15 U 5-Hydroxyindoleacetic 4.0 mg/L 04/17/16 02:15 Urine 5-HIAA 24 Hour NOT APPLICABLE mg/d (0-15) 04/17/16 02:15 U 5-HIAA/Creat Ratio 2 mg/gCR (0-14) 04/17/16 02:15 Urine 5-HIAA Interpret SEE NOTE 04/17/16 02:15 Urine Total Protein 30 mg/dL (1-14) H 04/17/16 02:15 Urine Test Negative (Negative) 04/16/16 16:20 Impressions Abdomen/Pelvis CT 04/16/16 13:51 IMPRESSION: 1. No acute intra-abdominal or intrapelvic process. 2. No urinary stones or hydronephrosis. 3. Diffuse hepatic steatosis. 4. Patient status post cholecystectomy. 5. Stable uterine fibroids. D/ / 04/16/2016 15:32:03 Avel Guaman MD / dwayne Interpreting Provider: Avel Guaman MD Head CT 04/16/16 13:51 IMPRESSION: No acute intracranial abnormality. D/ / Sai Rajan MD / Sai Rajan MD Interpreting Provider: Sai Rajan MD Chest X-Ray 04/16/16 15:03 IMPRESSION: No acute cardiopulmonary disease. D/ / 04/16/2016 15:38:31 Avel Guaman MD / dwayne Interpreting Provider: Avel Guaman MD - Attending Attestation My signature below is to certify that this patient is under my care and that I, or the Resident Physician working with me, has had a [id number] encounter with this patient. Primary care has been reviewed and discussed in detail with the patient. Questions addressed. Advanced care directive should briefly addressed. Patient does not declare any healthy restrictions at this time. Outpatient medications schedules will be reviewed, confirmed and facilitated as appropriate. Reconciliation of home treatments including adjustments, substitutions and reintroduction into the treatment regimen will address necessary maintenance therapies for chronic pre-existing medical conditions. Smoking cessation counseling briefly addressed. Patient is a nonsmoker. Hospital course will be dependent on clinical findings, treatment response and potential consultative interventions. The patient is at risk for acute clinical decline and morbidity given his presenting chief complaint, findings and associated comorbidities. Condition is serious. Prognosis is cautiously optimistic. CODE STATUS is full.
[2016-04-17] MEDS: Nitroglycerin 25 MG/250 ML INFUS..BTL IVC SCH (07:28)
[2016-04-17] MEDS: Pantoprazole 40 MG VIAL IVP SCH (08:00)
--- NOTE | 2016-04-17 08:05 | Internal Med Progress Note ---
Date of Encounter: 04/17/16 Time of Encounter: 08:03 - Assessment and plan (1) Hypertensive urgency Current Visit: Yes Status: Acute Assessment and plan: Currently on Nitroglycerine drip, with BP 180/90, but reports severe headache; will change to Nicardipine drip and resume home medications of Labetalol and Lisinopril; monitor BP closely; Patient does follow with Nephrology as outpatient; review of previous labs show significant proteinuria, normal urine PCR, slightly elevated Urine VMA/ cr ratio and plasma normetanephrines, may not be confirmatory but seems to have adrenal hyperactivity; non-contrast CT abdomen shows no adrenal tumor/mass; will consult Nephrology and f/up; patient may also need outpatient Endocrinology evaluation; (2) Intractable vomiting with nausea Current Visit: Yes Status: Acute Assessment and plan: likely related to elevated BP; supportive care with PRN Phenergan; clear liquid diet as tolerated; CT head shows no acute bleed/abnormality; Qualifiers: Vomiting type: unspecified Qualified Code(s): R11.2 - Nausea with vomiting , unspecified (3) Hypokalemia Current Visit: Yes Status: Acute Assessment and plan: due to GI losses; supplement with oral and IV KCl and continue to monitor; (4) UTI (urinary tract infection) Current Visit: Yes Status: Acute Assessment and plan: UA suggestive of UTI and patient has leukocytosis, which may be related to metabolic stress from elevated BP and persistent nausea and vomiting; will continue IV Rocephin and f/up urine culture; Qualifiers: Urinary tract infection type: acute cystitis Hematuria presence: without hematuria Qualified Code(s): N30.00 - Acute cystitis without hematuria (5) Depression Current Visit: Yes Status: Chronic Assessment and plan: Antidepressants currently on hold; will resume at discharge; Qualifiers: Depression Type: unspecified Qualified Code(s): F32.9 - Major depressive disorder, single episode, unspecified - Subjective Interval history: Reports terrible headache, uncomfortable and fidgety; some nausea and threw up white foamy stuff earlier; some retrosternal chest pain, nonradiating; no abdominal pain, leg swelling, dyspnea, cough; - Constitutional Vitals: Temp Pulse Resp BP Pulse Ox 97.5 F L 84 16 181/91 96 04/17/16 07:10 04/17/16 07:10 04/17/16 07:10 04/17/16 07:10 04/17/16 07:10 General appearance: Present: mild distress (due to nausea and headache), A&O X 3 , answers questions appropriately - Head Head exam: Present: atraumatic, normocephalic - Neck Neck exam general surgery: Present: supple, trachea midline. Absent: lymphadenopathy - Respiratory Respiratory exam: Present: CTAB. Absent: accessory muscle use, rales, rhonchi, wheezes - Cardiovascular Cardiovascular exam: Present: RRR, +S1, +S2. Absent: diastolic murmur, gallop, rubs, systolic murmur - GI/Abdominal GI/Abdominal exam: Present: normal bowel sounds, soft (obese), no peritoneal signs. Absent: distended, tenderness - Extremities Exam Extremities exam: Present: warm, radial pulses palpable and symetrical. Absent : calf tenderness, cyanotic, pedal edema - Neurological Exam Neurological exam: Present: CN II-XII intact, oriented X3, no focal deficits. Absent: pronater drift, facial droop, speech deficit - Skin Skin exam: Present: dry, intact Internal Medicine: Result - Labs CBC & Chem 7: 04/17/16 05:06 04/17/16 05:06 Labs: Short CBC 04/17/16 Range/Units 05:06 WBC 18.9 H (4.3-11.1) K/mcL Hgb 13.8 D (11.5-15.4) g/dL Hct 40.6 (35.3-44.9) % Plt Count 300 (140-400) K/mcL Neutrophils # 14.3 H (1.6-8.9) K/mcL BMP 04/17/16 05:06 Sodium 135 L Potassium 3.2 L Chloride 102 Carbon Dioxide 20 BUN 12 Creatinine 0.64 Glucose 118 H Calcium 9.6 Cardiac Enzymes 04/16/16 Range/Units 22:22 Troponin I 0.01 (0-0.03) ng/mL Consult Discharge Plan - Plan Referrals: NO,PCP [Primary Care Provider] -
[2016-04-17] MEDS: niCARdipine 20 MG/200 ML MLS IVC SCH ×4 (08:45→21:25)
[2016-04-17] MEDS ORDERED: SUMAtriptan succinate 50 MG TABLET PO PRN (12:24)
--- NOTE | 2016-04-17 12:49 | Neurology - Consult Note ---
Date of Encounter: 04/17/16 Time of Encounter: 12:43 Assessment and Plan (1) Hypertensive urgency Current Visit: Yes Status: Acute Likely related hypertensive urgency due to elevated BP, nausea and vomiting, without significant focal neurological deficits. they are subjectively different than her normal migraines. Clinically, patient has no transient visual obscuration and no typical features of pseudotumor cerebri, although this can not be excluded without diagnostic LP. For now would recommend to continue medical and supportive treatment of elevated BP. Avoid nitrite which is known to aggravate headache. Once BP better controlled then she could be evaluated with information technology account manager for fundus examination. I could not get good view of fundus, due to her near sighted and with very small pupils. (2) Chronic migraine Current Visit: Yes Status: Acute She does have chronic migraines. Never been treated with migraine preventatives. Will recommend topiramate 50mg qhs, it may reduce intracranial pressure. Start topiramate 50mg qhs. Continue sumatriptan prn for migraines. Follow up in neurology in few weeks. Patient to see information technology account manager for eye examination and may need diagnostic LP for opening CSF pressure measurement if there is evidence of optic disc swelling History of Present Illness Chief complaint: headache, nausea and vomiting HPI: Ms. Stoddard is a 46 year old female with HTN, obesity who presented with persistent headaches, nausea vomiting and uncontrolled HTN. Patient has history of chronic neck pain, migraine since younger age related to neck injury. However , in the last one or two years she started to experience a different type of headache that is more severe and different than the migraine. The migraines can be proceeded by some blurry vision and then followed by the headaches. Now, she would develop significant nausea, vomiting and the headaches would start and are severe. BP found to be at 190/110 this is at ER when being treated. Denies significant visual changes but did change her glass last year. Seen eye doctor one year ago. CT of head showed normal study Past Med Surg Social Fam HX - Past Medical History Medical history: hypertension, migraine, other (Nondiabetic gastroparesis) Psychiatric history: depression - Past Surgical History Surgical History: , cholecystectomy, other - Social History Smoking Status: Never smoker Smokeless Tobacco Status: No Alcohol use: rarely Drug use: none - Family History Mother Name: Keila abebe Age: 71 Living Status: Still Living Hx Family Endocrine Disorder: Yes (DM) Medications and Allergies BuPROPion SR (12 HR) [Wellbutrin SR] 150 mg PO BID 12/07/15 [History] Labetalol HCl 200 mg PO BID 12/07/15 [History] Norethindrone 0.35 mg PO DAILY PRN 12/07/15 [History] Sertraline [Zoloft] 50 mg PO DAILY 12/07/15 [History] Metoclopramide [Reglan] 5 mg PO Q6HR PRN #15 ud.liq 12/10/15 [Rx] Lisinopril [Zestril] 5 mg PO DAILY #15 tablet 12/23/15 [Rx] Allergies No Known Allergies Allergy (Verified 04/15/16 05:45) All Systems: A 10-system review of systems was performed and is negative for pertinent findings except as documented above in the HPI. Physical Examination - Vital Signs Vital Signs: Initial Vital Signs Temp Pulse Resp BP Pulse Ox 97.9 F 77 16 202/109 97 04/16/16 13:17 04/16/16 13:17 04/16/16 13:17 04/16/16 13:17 04/16/16 13:17 - Constitutional General appearance: comfortable - Neurologic Sensorimotor examination: intact Detailed motor examination: grossly full strength in all extremities Motor examination - right side: 5/5: deltoids, biceps, triceps, wrist flexion, wrist extension, shopper's aide, hip flexors, tibialis Anterior, quadriceps, toe extension (EHL), plantarflexion Motor examination - left side: 5/5: deltoids, biceps, triceps, wrist flexion, wrist extension, hip flexors, shopper's aide, quadriceps, tibialis Anterior, toe extension (EHL), plantarflexion Detailed sensory examination: intact Reflex and gait examination: intact Reflexes: Biceps: 1+, Triceps: 1+, Brachioradialis: 1+, Patella: 1+, Achilles: 1 + Mental Status Examination: awake, alert, oriented to person, oriented to place, oriented to time, follows commands appropriately, answers questions appropriately, no agnosia, no aphasia, no aproxia Cranial nerve examination: PERRL, EOMI, visual wilson intact, corneal reflexes brisk symmetrically, sensory to face intact, mastication intact, no facial asymmetry is present, no dysarthria, hearing is intact symmetrically, soft palate elevates bilaterally upon phonation, gag reflex intact, flexes SCM and trapezius muscles symmetrically with full power, tongue protrudes midline, no atrophy or facial fasiculations present Results - Laboratory Findings CBC and BMP: 04/17/16 05:06 04/17/16 05:06 Abnormal lab findings: Abnormal lab results WBC 18.9 K/mcL (4.3-11.1) H 04/17/16 05:06 Neutrophils # 14.3 K/mcL (1.6-8.9) H 04/17/16 05:06 Monocytes # 1.5 K/mcL (0.0-1.3) H 04/17/16 05:06 Sodium 135 mEq/L (136-145) L 04/17/16 05:06 Potassium 3.2 mEq/L (3.5-4.5) L 04/17/16 05:06 Glucose 118 mg/dL (70-99) H 04/17/16 05:06 Urine Clarity Cloudy (Clear) A 04/16/16 16:20 Ur Specific [place] > 1.030 (1.010-1.025) H 04/16/16 16:20 Urine Protein >=300 mg/dL (Neg-Trace) H 04/16/16 16:20 Urine Ketones 80 mg/dL (Negative) H 04/16/16 16:20 Urine Bilirubin Small (Negative) H 04/16/16 16:20 Urine Microscopic RBC 5-15 per hpf (0-3) H 04/16/16 16:20 Urine Microscopic WBC 5-15 per hpf (0-3) H 04/16/16 16:20 Ur Squamous Epith Cells Many per lpf (None-Few) H 04/16/16 16:20 Urine Bacteria Many per hpf (None-Few) H 04/16/16 16:20 Urine Mucus Many (Few) H 04/16/16 16:20 Ur Culture Indicated? YES (NO) A 04/16/16 16:20 Microalb/Creat Ratio 54 (0-30) H 04/17/16 02:15 Urine Total Protein 30 mg/dL (1-14) H 04/17/16 02:15 Consult Discharge Plan - Plan Referrals: NO,PCP [Primary Care Provider] -
--- NOTE | 2016-04-17 13:03 | ECHO - Doppler Report ---
Echocardiogram Name: Yara Stoddard Date of Study: 04/17/2016 Date: 1970 Ht: 65.0 in Medical Record#: [id number] Age: 46 Wt: 262.0 lb Gender: Female BSA: 2.22 Order #: [id number] Location: [facility] Room #: 2N1 Reading Physician: Rob Sapp DO, YUMIKO, LAVERNE GRAY Gift Shop Manager: Arleth Booker RVT Ordering Physician: Ariadna Mcneil DO Primary Physician: None Indications: Long standing hypertension Impressions: LVEF 70%. Normal LV chamber size and function. Mild concentric left ventricular hypertrophy. Mild left ventricular diastolic dysfunction. Normal right ventricular structure and function. No evidence of pulmonary hypertension. No significant valvular dysfunction. Left Ventricular Wall Motion: Rest Echo Findings The apex, apical inferior, mid inferior, basal inferior, apical anterior, mid anterior, basal anterior, apical septal, mid inferior septal, basal inferior septal, apical lateral, mid anterior lateral, basal anterior lateral, mid anterior septal, mid inferior lateral, basal anterior septal and basal inferior lateral quinn were hyperkinetic. Findings: Study Quality * Technically adequate exam. ECG Findings * Sinus tachycardia. Left Ventricle * LVEF 70%. * Normal LV chamber size and function. * Mild concentric left ventricular hypertrophy. * Mild left ventricular diastolic dysfunction. Right Ventricle * Normal right ventricular structure and function. Left Atrium * Mildly dilated left atrium. Right Atrium * Normal right atrial size. Interatrial Septum * No evidence of PFO by color Doppler. Aortic Valve * Trileaflet aortic valve. * No aortic stenosis. * Mildly increased gradient probably due to hyperdynamic LV function. * No aortic regurgitation. Mitral Valve * Normal mitral valve structure and function. * No mitral regurgitation. * No mitral stenosis. Tricuspid Valve * Normal tricuspid valve structure and function. * Trace tricuspid regurgitation. * No evidence of pulmonary hypertension. Pulmonic Valve * Normal pulmonic valve structure and function. * No pulmonic regurgitation. Aorta * Normally sized aortic root. Pericardium * The pericardium appears normal. IVC * Normal IVC dimensions and inspiratory collapse. Pulmonary Artery * Normal visualized portions of the main pulmonary artery. History Hypertension Measurements: BP: 156/ 95 2D Normal Values RVIDd: 3.30 cm <2.7 cm IVSd: 1.20 cm 0.6 - 1.0 cm LVIDd: 4.80 cm 3.7 - 5.6 cm LVPWd: 1.20 cm 0.6 - 1.1 cm LVIDs: 3.10 cm 1.5 - 3.6 cm AO: 2.40 cm < 4.0 cm LA: 3.50 cm 2.0 - 4.0cm %FS: 35.40 cm >25 % LVOT Diam: 2.00 cm LA volume: 52 Mitral Valve Peak E:.79 m/sec Peak A:1.21 m/sec E/A Ratio:0.7 Peak E' Lat Diego:6.14 cm/s Peak E' Med Diego:7.02 cm/s E/E' Lat Ratio:12.9 E/E' Med Ratio:11.3 LVOT Peak Diego:1.56 m/sec Mean Diego:1.11 m/sec Peak Grad:10.00 mmHg Mean Grad:6.00 mmHg Aortic Valve Peak Diego:2.20 m/sec Mean Diego:1.52 m/sec Peak Grad:19.00 mmHg Mean Grad:10.00 mmHg Valve Area:2.72 cm2 Tricuspid Valve TV Regurg Peak Grad: 19.00mmHg TV Regurg Peak Diego: 2.19m/sec Updated by Rob Sapp DO, FACSpike, MARINA, LAVERNE on 04/17/2016 12:58:25 PM electronically signed on 04/17/2016 1:00:00 PM with status of Final Wall Motion Tamayo: 1=Normal, 2=Hypokinesis, 3=Akinesis, 4=Dyskinesis, 5=Aneurysmal, 6=Hyperkinetic, X=Not Visualized (Blank)=Missing
--- NOTE | 2016-04-17 14:27 | Nephrology Consult Note ---
Date of Encounter: 04/18/16 Time of Encounter: 10:30 Assessment and Plan (1) Hypertensive urgency Current Visit: Yes Status: Acute I reviewed the outside medical records from [facility] by my colleague Dr. Vance, who has started working her up for secondary hypertensive conditions. I reviewed the CT abd/pelvis without contrast: no adrenal nodules, hydronephrosis. Recommend checking a renal doppler. Initial UA was dirty with proteinuria, but yesterday the spot U P/C ratio was WNL. Also the UCx returned mixed with normal braden. She voiced having high levels of stress with her profession and apparently is being investigated she reported. BPs were noted to be elevated after the N/V, not before. Sometimes the active of emesis and retching will raise BPs. I recommend stopping the 0.9% saline (which has about 9gm of NaCl per liter) and to utilize a low sodium diet; she may be Salt Sensitive in terms of her HTN. Also to resume her home antihypertensive regimen and slowly ween off the gtts. The screen Plasma metanephrines were minimally elevated, but I do not suspect Pheo. Hx of loss and pre-eclampsia and mildly elevated PT, screen for lupus anticoagulant. Typically it's acutally PTT that would be prolonged. The HEIDY was negative when recently checked. I sat with her and her mother for a long conversation: recommended standard lifestyle modifications including low salt diet, weight loss for her obesity and exercise. Perhaps for future episodes of spiking BPs: she may utilize a prn Clonidine as follows 0.1mg po up to every 8hr prn SBP >180. Will follow with you. Discussed with the hospitalist. Thank you for consulting the [facility] group. (2) Hypokalemia Current Visit: Yes Status: Acute (3) Hyponatremia Current Visit: Yes Status: Acute (4) Anxiety Current Visit: No Status: Acute (5) Obesity (BMI 30-39.9) Current Visit: No Status: Acute History of Present Illness - Reason for Consult Consult date: 04/17/16 accelerated hypertension Requesting physician: Tiffany Miller - Chief Complaint HTN - History of Present Illness 46 y/o WF with a pmh of labile HTN and et al who presented with N/V and HTN urgency. She was recently referred to and established with [facility] in the clinic (Dr. Vance). Prior preg loss and pre-eclampsia. She denied street / illicit drugs. Has high levels of stress: being investigated with a planned home search this coming week, she said. N/V developed the day prior to admit that started soon after eating a pizza. She often has N/V, which has been ongoing for several months or longer; and minimally improved after a cholecystectomy. Her mother was present. No FHx of ESRD. The pt occ uses NSAIDs , but not too often. She did not affirm CP, shortness of breath, open wounds, rashes, rheumatologic joint disease, renal stones or dysuria symptoms. She was placed on IVF and antihypertensive gtt over night. She developed a REGALADO she said from the Nitro gtt. Past Med Surg Social Fam HX - Past Medical History Medical history: hypertension, migraine, other (Nondiabetic gastroparesis) Psychiatric history: depression - Past Surgical History Surgical History: , cholecystectomy, other - Social History Smoking Status: Never smoker Smokeless Tobacco Status: No Alcohol use: rarely Drug use: none - Family History Mother Name: Keila abebe Age: 71 Living Status: Still Living Hx Family Endocrine Disorder: Yes (DM) Medications and Allergies BuPROPion SR (12 HR) [Wellbutrin SR] 150 mg PO BID 12/07/15 [History] Labetalol HCl 200 mg PO BID 12/07/15 [History] Norethindrone 0.35 mg PO DAILY PRN 12/07/15 [History] Sertraline [Zoloft] 50 mg PO DAILY 12/07/15 [History] Metoclopramide [Reglan] 5 mg PO Q6HR PRN #15 ud.liq 12/10/15 [Rx] Lisinopril [Zestril] 5 mg PO DAILY #15 tablet 12/23/15 [Rx] Allergies No Known Allergies Allergy (Verified 04/15/16 05:45) Review of Systems All Systems: reviewed and no additional remarkable complaints except as stated Exam - Vital Signs Vital signs: Initial Vital Signs Temp Pulse Resp BP Pulse Ox 97.9 F 77 16 202/109 97 04/16/16 13:17 04/16/16 13:17 04/16/16 13:17 04/16/16 13:17 04/16/16 13:17 Vital Signs - Last 8 Hours Temp Pulse Resp BP Pulse Ox 04/17/16 13:30 95 167/86 04/17/16 13:00 95 160/88 04/17/16 12:30 103 163/95 04/17/16 12:00 100 158/97 04/17/16 11:47 98 04/17/16 11:30 99 171/98 04/17/16 11:25 98.1 F 106 18 169/97 96 04/17/16 11:15 98 169/97 04/17/16 11:00 98 175/96 04/17/16 10:30 96 167/102 04/17/16 10:15 106 162/96 04/17/16 10:00 106 173/101 04/17/16 09:45 100 172/95 04/17/16 09:30 99 170/101 04/17/16 09:15 97 177/101 04/17/16 09:05 97 194/106 04/17/16 08:44 93 192/111 04/17/16 08:00 89 04/17/16 07:10 97.5 F L 84 16 181/91 96 04/17/16 07:00 95 181/91 Intake and Output 04/16/16 04/17/16 04/17/16 23:59 07:59 15:59 Intake Total 9 / 1017 401 / 401 1774 / 1774 Output Total 350 / 350 75 / 75 550 / 550 Balance -341 / 667 326 / 326 1224 / 1224 Intake: IV Fluids 401 / 401 1054 / 1054 0.9 % Sodium Chloride 1, 708 / 708 000 ML @ 100 mls/hr IVC . Q10H [facility] Rx#:[id number] Cardene Premix 20mg/200ml 171 / 171 20 mg In 200 ml @ 5 MG/ HR 50 mls/hr IVC .Q4H [facility] Rx#:[id number] Nitroglycerin 25 mg In 250 / 250 250 ml @ 5 MCG/MIN 3 mls/ hr IVC .Q24H [facility] Rx#: [id number] Rocephin 1,000 MG In 100 / 100 Dextrose 5% (Minibag+) 100 ML 100 ML @ 200 mls/ hr IVPB Q12HR [facility] Rx#: [id number] Potassium Chloride 10 mEq 175 / 175 /100mL 10 meq In 100 ml @ 100 mls/hr IVPB Q1H [facility] Rx#:[id number] Vitamin B-1 100 MG In 51 / 51 Dextrose 5% 50 ML @ 50 mls/hr IVPB DAILY [facility] Rx# :[id number] Oral 0 / 0 720 / 720 Output: Urine 350 / 350 75 / 75 550 / 550 Other: Meal Lunch Percent of Meal Consumed 50% Weight 118.9 kg - General Appearance General appearance: well-developed, well-nourished, appears started age, obese EENT: ATNC, PERRL, mucous membranes moist Neck: supple Respiratory: clear Cardiology: no murmurs, no edema, regular rate, regular rhythm, normal S1, normal S2 Gastrointestinal: normoactive bowel sounds, no tenderness, no guarding Integumentary: no rash, warm and dry Neurologic: no focal deficit, no asterixis, alert and oriented x3 Musculoskeletal: no deformities, no erythema, no cyanosis Psychiatric: cooperative (but anxious and cried during the exam) Results - Lab Results 04/18/16 06:22 04/18/16 06:22 Most recent lab results Calcium 9.6 mg/dL (8.6-10.8) 04/17/16 05:06 Phosphorus 2.3 mg/dL (2.3-4.7) 04/16/16 22:22 Magnesium 1.9 mg/dL (1.6-2.6) 04/16/16 22:22 Urine Creatinine 177 mg/dL 04/17/16 02:15 Urine Sodium 130.0 mEq/L 04/17/16 02:15 Urine Total Protein 30 mg/dL (1-14) H 04/17/16 02:15 I reviewed the above auto-generated data in her chart on on 04/17/16. I reviewed outside progress notes by PCP and by [facility]. I reviewed labs, meds, vitals and imaging as well. Consult Discharge Plan - Plan Referrals: NO,PCP [Primary Care Provider] -
[2016-04-17] MEDS: *HR* Heparin 5,000 UNIT/ML VIAL SQ SCH (18:02)
[2016-04-17] MEDS ORDERED: Topiramate 25 MG CAP.SPRINK PO SCH (21:00)
[2016-04-18] MEDS: *HR* Heparin 5,000 UNIT/ML VIAL SQ SCH (06:10)
[2016-04-18] MEDS: niCARdipine 20 MG/200 ML MLS IVC SCH ×3 (06:19→11:54)
[2016-04-18 06:32] LABS: Basophils # 0.1 K/mcL (0.0-0.2); Basophils % 0.7 %; Eosinophils # 0.2 K/mcL (0.0-0.6); Eosinophils % 2.1 %; Hematocrit 43.3 % (35.3-44.9); Hemoglobin 14.4 g/dL (11.5-15.4); Immature Granulocytes % 0.4 % (0-4); Immature Platelets 4.7 % (1.1-6.1); Lymphocytes # 2.9 K/mcL (0.6-4.6); Lymphocytes % 30.1 %; Mean Corpuscular HGB Conc 33.3 g/dL (31.6-35.5); Mean Corpuscular Volume 87.1 fL (83.0-100.0); Mean Platelet Volume 10.3 fL (9.4-12.4); Monocytes % 10.2 %; Neutrophils # 5.5 K/mcL (1.6-8.9); Platelet Count 258 K/mcL (140-400); Red Blood Count 4.97 M/mcL (3.82-4.97); Red Cell Distribution Width 13.2 % (11.5-14.5); Segmented Neutrophils % 56.5 %
[2016-04-18 06:46] LABS: Hemoglobin A1C 5.1 %
[2016-04-18 06:47] LABS: BUN/Creatinine Ratio 15 (6-26); Blood Urea Nitrogen 13 mg/dL (7-20); Calcium 9.7 mg/dL (8.6-10.8); Carbon Dioxide 23 mEq/L (19-29); Chloride 101 mEq/L (98-109); Glucose 98 mg/dL (70-99); Osmolality,Calculated 278 (280-300); Potassium 3.3 mEq/L (3.5-4.5); Sodium 134 mEq/L (136-145); eGFR For African Americans > 60 (> 60); eGFR For Non-African Americans > 60 (> 60)
[2016-04-18 06:48] LABS: Chol/HDL Ratio 3.8 (0-4.9); Magnesium 1.7 mg/dL (1.6-2.6); Phosphorous 3.1 mg/dL (2.3-4.7)
[2016-04-18 07:05] LABS: Thyroid Stimulating Hormone 1.177 mcIU/mL (0.350-4.840); Triiodothyronine (T3) Free 2.31 pg/mL (1.71-3.71)
[2016-04-18] MEDS ORDERED: Potassium Chloride Elixir 20 MEQ/15 ML UDC PO ONE (07:39)
[2016-04-18] MEDS: Pantoprazole 40 MG VIAL IVP SCH (08:47)
[2016-04-18 10:40] LABS: Prolactin 42.22 ng/mL (5.18-26.53)
[2016-04-18 11:20] VITALS: BP 121/62
--- NOTE | 2016-04-18 12:17 | Discharge Summary ---
Date of Encounter: 04/18/16 Time of Encounter: 07:45 - Discharge Diagnosis (1) Hypertensive urgency Priority: Primary Status: Resolved (2) Intractable vomiting with nausea Priority: Primary Status: Resolved Qualifiers: Vomiting type: unspecified Qualified Code(s): R11.2 - Nausea with vomiting , unspecified (3) Hypokalemia Priority: Primary Status: Acute (4) UTI (urinary tract infection) Priority: Primary Status: Ruled-out Qualifiers: Urinary tract infection type: acute cystitis Hematuria presence: without hematuria Qualified Code(s): N30.00 - Acute cystitis without hematuria (5) Depression Priority: Secondary Status: Chronic Qualifiers: Depression Type: unspecified Qualified Code(s): F32.9 - Major depressive disorder, single episode, unspecified - Discharge Medications Prescriptions: Blood Pressure Test Kit-Medium [Blood Pressure Cuff Monitor] 1 each MC DAILY #1 kit CloNIDine HCl 0.1 mg PO DAILY PRN #20 tablet PRN Reason: Blood Pressure - High Topiramate [Topamax] 50 mg PO HS #30 cap.sprink Home Medications: BuPROPion SR (12 HR) [Wellbutrin SR] 150 mg PO BID 12/07/15 [History] Labetalol HCl 200 mg PO BID 12/07/15 [History] Norethindrone 0.35 mg PO DAILY PRN 12/07/15 [History] Sertraline [Zoloft] 50 mg PO DAILY 12/07/15 [History] Metoclopramide [Reglan] 5 mg PO Q6HR PRN #15 ud.liq 12/10/15 [Rx] Lisinopril [Zestril] 5 mg PO DAILY #15 tablet 12/23/15 [Rx] Blood Pressure Test Kit-Medium [Blood Pressure Cuff Monitor] 1 each MC DAILY #1 kit 04/18/16 [Rx] CloNIDine HCl 0.1 mg PO DAILY PRN #20 tablet 04/18/16 [Rx] Topiramate [Topamax] 50 mg PO HS #30 cap.sprink 04/18/16 [Rx] Allergies/Adverse Reactions: Allergies No Known Allergies Allergy (Verified 04/15/16 05:45) Date of admission: 04/17/16 15:59 Primary care physician: PCP NO Discharging clinician: Tiffany Colon date of discharge: 04/18/16 - Patient Status Disposition: Home, Self-Care Condition: Good Functional capacity at discharge: independent ambulation Overall status at discharge: patient is back to baseline - Discharge Instructions Instructions: Clonidine (By mouth), Topiramate (By mouth), Chronic Hypertension (DC) Follow Up With: NO,PCP [Primary Care Provider] - Additional Instructions: F/up with [facility] as scheduled F/up with Neurology in 2-3 weeks F/up with Ophthalmology for optic disc examination; - Diet and Activity Activity: resume usual activities as tolerated Diet: low salt diet Hospital course: Ms. Stoddard is a 46 year old female with history of hypertension was admitted with nausea, vomiting and headache. She was noted to have uncontrolled hypertension and was treated for hypertensive urgency. She was started on IV nitroglycerin drip which exacerbated her headache and discomfort with inappropriate control of blood pressure. She was then switched to IV nicardipine drip along with supportive care and her home medications were resumed. Blood pressure is much better controlled since last night. Patient's symptoms including severe nausea and headache improved. Patient is noted to have episodic uncontrolled hypertension, symptomatic and she does follow with nephrology as an outpatient and etiology for possible secondary hypertension is being worked up with inconclusive diagnosis so far. She is noted to have significant proteinuria, very minimally elevated urine vanillylmandelic acid and serum normetanephrines, which are nondiagnostic for pheochromocytoma. Nephrology has been consulted during this admission, agree with current management, recommend to discharge patient with when necessary clonidine for future hypertensive events to avoid readmissions. Patient is recommended to continue to follow-up with nephrology. Patient was seen by neurology in the hospital for possible pseudotumor cerebri. She was started on Topamax for her migraine headaches with when necessary sumatriptan. She is recommended to follow up with ophthalmology for optic disc evaluation and also with neurology in 2-3 weeks. Patient was noted to have significant leukocytosis at admission, which is most likely stress related due to persistent vomiting and headache. Her white blood cell count normalized today. She was started on IV antibiotics for possible UTI due to positive urine dipstick, which are being held now due to sterile urine culture. She is medically stable for discharge. - Time Spent with Patient Total time spent providing and/or coordinating discharge services: Greater than 30 minutes (45 min) - Constitutional Vitals: Temp Pulse Resp BP Pulse Ox 98.2 F 84 16 121/62 96 04/18/16 11:10 04/18/16 11:55 04/18/16 11:10 04/18/16 11:10 04/18/16 11:10 General appearance: Present: A&O X 3, answers questions appropriately - Respiratory Respiratory exam: Present: CTAB. Absent: accessory muscle use, rales, rhonchi, wheezes - Cardiovascular Cardiovascular exam: Present: RRR, +S1, +S2. Absent: diastolic murmur, gallop, rubs, systolic murmur
--- NOTE | 2016-04-18 12:35 | Nephrology Progress Note ---
Date of Encounter: 04/18/16 Time of Encounter: 10:15 - Assessment and Plan (1) Hypertensive urgency Status: Resolved Improving quickly on her home regimen. I recommend continue the Labetolol and lisinopril, plus okay to add Clonidine 0.1mg po prn SBP >180mmHg (I counseled the pt on the R/B/I and SE profile). The inital UA was dirty including proteinuria, but the spot U P/C ratio from yesterday was actually WNL Keep BP log and she already has a f/u appt with my colleague Dr. Vance. Thank you. (2) Hypokalemia Status: Acute (3) Hyponatremia Status: Acute Minimal. Would not add salt to her diet, as I suspect this hyponatremia is transient and not packaging sales representative of an actual salt deficiency. (4) Anxiety Status: Acute Improved today. Counseled her on stress reducing techniques. (5) Obesity (BMI 30-39.9) Status: Acute Wt loss and standard lifestyle modifications were encouraged and are recommended. Subjective Principal diagnosis: HTN Interval history: Seen/examined earlier today. The pt reported feeling better without nausea. Eating better. She and her mother thanked me for listening and for explaining my care plans. Objective - Vital Signs Vital signs: Vital Signs Temp Pulse Resp BP Pulse Ox 04/18/16 11:55 84 04/18/16 11:10 98.2 F 78 16 121/62 96 04/18/16 08:00 83 04/18/16 07:09 97.7 F 71 16 106/71 99 04/18/16 04:06 98.8 F 72 16 113/64 97 04/18/16 00:05 98.2 F 77 16 102/46 96 04/17/16 20:15 105 110/73 04/17/16 19:45 113 109/68 04/17/16 19:30 113 121/71 04/17/16 19:06 97.9 F 118 16 146/83 96 04/17/16 18:30 127 130/95 04/17/16 18:00 117 140/103 04/17/16 17:30 111 145/85 04/17/16 17:00 108 156/84 04/17/16 16:30 102 155/84 04/17/16 16:00 102 150/93 Intake and Output 04/17/16 04/18/16 04/18/16 23:59 07:59 15:59 Intake Total 681 / 681 600 / 600 Output Total 1000 / 1000 300 / 300 Balance -319 / -319 -300 / -300 600 / 600 Intake: IV Fluids 321 / 321 Cardene Premix 20mg/200ml 225 / 225 20 mg In 200 ml @ 5 MG/ HR 50 mls/hr IVC .Q4H AURY Rx#:[id number] Rocephin 1,000 MG In 96 / 96 Dextrose 5% (Minibag+) 100 ML 100 ML @ 200 mls/ hr IVPB Q12HR AURY Rx#: [id number] Oral 360 / 360 600 / 600 Output: Urine 1000 / 1000 300 / 300 Other: Meal Dinner Breakfast Percent of Meal Consumed 50% 50% Weight 119.4 kg Patient Weight 04/18/16 23:59 Weight 119.4 kg - General Appearance General appearance: Present: well-developed, well-nourished, appears started age , obese EENT: Present: ATNC, PERRL, mucous membranes moist Neck: Present: supple Respiratory: Present: clear Cardiology: Present: no murmurs, no edema, regular rate, regular rhythm, normal S1, normal S2 Gastrointestinal: Present: normoactive bowel sounds, no tenderness, no guarding , no organomegaly, obese Integumentary: Present: no rash, warm and dry Neurologic: Present: no focal deficit, no asterixis, alert and oriented x3 Musculoskeletal: Present: no deformities, no erythema Psychiatric: Present: mood/affect appropriate, cooperative - Lab 04/18/16 06:22 04/18/16 06:22 Most recent lab results Calcium 9.7 mg/dL (8.6-10.8) 04/18/16 06:22 Phosphorus 3.1 mg/dL (2.3-4.7) 04/18/16 06:22 Magnesium 1.7 mg/dL (1.6-2.6) 04/18/16 06:22 Urine Creatinine 177 mg/dL 04/17/16 02:15 Urine Sodium 130.0 mEq/L 04/17/16 02:15 Urine Total Protein 30 mg/dL (1-14) H 04/17/16 02:15 Consult Discharge Plan - Plan Instructions: Clonidine (By mouth), Topiramate (By mouth), Chronic Hypertension (DC) Additional Instructions: F/up with [facility] as scheduled F/up with Neurology in 2-3 weeks F/up with Ophthalmology for optic disc examination; Referrals: NO,PCP [Primary Care Provider] - Prescriptions: Blood Pressure Test Kit-Medium [Blood Pressure Cuff Monitor] 1 each MC DAILY #1 kit CloNIDine HCl 0.1 mg PO DAILY PRN #20 tablet PRN Reason: Blood Pressure - High Topiramate [Topamax] 50 mg PO HS #30 cap.sprink
--- NOTE | 2016-04-19 13:01 | Electrocardiograph Report ---
[address] [address] Test Date: 2016-04-16 Pat Name: Yara Stoddard Department: 104 Room: 01 Gender: F Cooperer: : 1970 Requested By: Elvin Maddox Order Number: [id number] Reading MD: Siddhartha Bingham Measurements Intervals [place] Rate: 78 P: 57 SC: 133 QRS: 21 QRSD: 90 T: 42 QT: 371 QTc: 405 Interpretive Statements SINUS RHYTHM Electronically Signed On 04-19-2016 13:00:08 EST by Siddhartha Bingham
[2016-04-19 15:33] LABS: Urine Collection Duration RANDOM hr; Urine Collection Volume RANDOM mL
[2016-04-21 11:09] LABS: Urine Collection Duration NOT PROVIDED hr; Urine Collection Volume NOT PROVIDED mL
[2016-04-21 12:05] LABS: Urine Collection Duration 24 hr; Urine Collection Volume 2450 mL; Urine Creatinine mg/d 1348 mg/d (700-1600)
[2016-04-21 16:49] LABS: APTT (LE Anticoag) 42 sec (32-48); Diluted Russell Viper Venom 32 sec (33-44); PT (LE-Anticoag) 13.7 sec (12.0-15.5)
== END 2016-04-18 14:10 | disposition home or self-care (01) | DRG 199 ==
LOC: EMEROO 13:15 → 2NENU 13:15 → SUATTDRO 20:18 → 2NNU 20:47
PROVIDERS: ADMIT Internal Medicine; ATTEND Internal Medicine

== ENCOUNTER 2016-06-03 07:38 | Observation (INO) ==
--- NOTE | 2016-06-03 07:50 | Emergency Department Note ---
Disposition Clinical Impression: Uncontrolled hypertension, Hypertensive crisis without congestive heart failure Nausea & vomiting Qualifiers: Vomiting type: unspecified Vomiting Intractability: unspecified Qualified Code( s): R11.2 - Nausea with vomiting, unspecified Disposition: Admitted As Inpatient Condition: Fair Time of Disposition: 11:06 General Adult HPI - General Chief complaint: ED General Medical Stated complaint: Vomiting, HTN Time Seen by Provider: 06/03/16 07:47 Source: patient, EMS Mode of arrival: EMS Limitations: no limitations Nursing Notes Reviewed: Yes Vital Signs Reviewed: Yes - History of Present Illness HPI Narrative: Presents to the emergency department from home arriving by EMS squad. She states that she has episodes where her heart or blood pressure will elevate and she becomes quite nauseated. She has been vomiting yellow bile-colored emesis. She states that she is they have been attempting to determine what the cause of these spikes in her blood pressure in the abdominal pain and discomfort but so far the chest have not proved to be conclusive. She states that her last episode was in March she has been in the past on a nitro drip to lower blood pressure but complains of severe headache of course when she is on the nitroglycerin. She has had her gallbladder taken out back in 2013 when she was . She lost the because of her hypertension and since that time she has had numerous problems. Last year she had 5 episodes of when from September into the fall when she her blood pressure spiked that she had this severe nausea. States that Zofran does not seem to help very much. Onset (ago): unknown Radiation: non-radiation Pain Severity: moderate Pain Scale: 6 Quality: aching Consistency: constant, Worsening Improves with: nothing Worsens with: nothing Associated symptoms: Reports: denies other symptoms Treatments Prior to Arrival: none - Related Data Home Medications Medication Instructions Recorded Confirmed BuPROPion SR (12 HR) [Wellbutrin 150 mg PO BID 12/07/15 04/16/16 SR] Labetalol HCl 200 mg PO BID 12/07/15 04/16/16 Norethindrone 0.35 mg PO DAILY PRN 12/07/15 04/16/16 Sertraline [Zoloft] 50 mg PO DAILY 12/07/15 04/16/16 Previous Rx's Medication Instructions Recorded Metoclopramide [Reglan] 5 mg PO Q6HR PRN #15 ud.liq 12/10/15 Lisinopril [Zestril] 5 mg PO DAILY #15 tablet 12/23/15 Blood Pressure Test Kit-Medium 1 each MC DAILY #1 kit 04/18/16 [Blood Pressure Cuff Monitor] CloNIDine HCl 0.1 mg PO DAILY PRN #20 tablet 04/18/16 Topiramate [Topamax] 50 mg PO HS #30 cap.sprink 04/18/16 Promethazine [Phenergan] 25 mg PO Q6HR #30 tablet 06/03/16 Allergies Allergy/AdvReac Type Severity Reaction Status Date / Time No Known Allergies Allergy Verified 04/15/16 05:45 All systems ED: reviewed and negative except as stated. Constitutional: Denies: fever, chills, weakness, weight change Eyes: Denies: eye pain, eye discharge, vision change ENT ED: Denies: ear pain, throat pain, dental pain, hearing loss, epistaxis, congestion, dysphagia Cardiovascular: Denies: chest pain, palpitations, dyspnea on exertion, edema, syncope Respiratory: Denies: cough, dyspnea, wheezes, hemoptysis, stridor Gastrointestinal: Reports: abdominal pain, nausea, vomiting Genitourinary: Denies: dysuria, frequency, hematuria, discharge Musculoskeletal: Denies: back pain, neck pain, arthralgia, myalgia Integumentary: Denies: rash, abrasion, lesions Neurological: Reports: headache Psychiatric: Denies: anxiety, depression, suicidal thoughts, homicidal thoughts , auditory hallucinations, visual hallucinations Endocrine: Denies: fatigue Past Medical History - Past Medical History Attestation: Yes The following information was validated with the patient. Source: patient, nursing notes reviewed Medical history: Reports: hypertension, migraine, other (Nondiabetic gastroparesis) Surgical history: Reports: , cholecystectomy, other Psychiatric history: Reports: depression WOODEN FENCE ERECTOR history: Reports: no WOODEN FENCE ERECTOR history - Social History Smoking Status: Never smoker Smokeless Tobacco Status: No Alcohol use: Reports: rarely Drug use: Reports: none Physical Exam - General Limitations: no limitations General appearance: alert, in no apparent distress - Head Head exam: atraumatic, normocephalic, normal inspection - Eye Eye exam: Present: normal appearance, PERRL, EOMI - ENT ENT exam: normal exam, normal oropharynx, mucous membranes moist - Neck Neck exam: Present: normal inspection, full ROM, trachea midline. Absent: tenderness, meningismus, lymphadenopathy, thyromegaly - Chest Chest inspection: Present: normal inspection, symmetric chest wall rise - Respiratory Respiratory exam: Present: normal lung sounds bilaterally. Absent: respiratory distress, wheezes, prolonged expiratory phase - Cardiovascular Cardiovascular exam: Present: regular rate, normal rhythm, normal heart sounds. Absent: systolic murmur, diastolic murmur, JVD - Abdominal Exam Abdominal exam: Present: soft, Non-Tender, diminished bowel sounds. Absent: tenderness, distention, guarding, rebound, rigidity - Extremities Exam Extremities exam: Present: normal inspection, full ROM. Absent: tenderness, pedal edema - Back Exam Back exam: Present: normal inspection, full ROM. Absent: tenderness - Neurological Exam Neurological exam: Present: alert, oriented X3, CN II-XII intact, normal gait, reflexes normal. Absent: motor sensory deficit - Psychiatric Psychiatric exam: Present: normal affect, normal mood - Skin Skin exam: Present: warm, dry, intact, normal color Course - Consultations Consultation #1: spoke with hospitalist and they accepted patient for admission Hypertensive Crisis, Intractable vomiting. Time: 11:05 Vital Signs Temperature 97.2 F L 06/03/16 07:51 Pulse Rate 68 06/03/16 07:51 Respiratory Rate 18 06/03/16 07:51 Blood Pressure 209/105 06/03/16 07:51 O2 Sat by Pulse Oximetry 97 06/03/16 07:51 Temperature 97.2 F L 06/03/16 07:51 Pulse Rate 79 06/03/16 11:12 Respiratory Rate 16 06/03/16 09:09 Blood Pressure 185/95 06/03/16 11:12 O2 Sat by Pulse Oximetry 96 06/03/16 11:12 Oxygen Delivery Oxygen Delivery Room Air Medical Decision Making - [facility] Narrative Medical decision making narrative: Hypertension Nausea and Vomiting Patient has been resting quietly after administration of Haldol 1 mg. This lasted approximately 60-90 mins, and then she resumed her retching, no emesis production at this time. Her blood pressure was also down to 170/78, and she was feeling better. - Lab Data Lab results reviewed: Yes I reviewed the patient's lab results. Result diagrams: 06/03/16 08:13 06/03/16 08:13 Lab Results 06/03/16 06/03/16 06/03/16 Range/Units 08:13 08:13 08:13 WBC 11.1 (4.3-11.1) K/mcL RBC 4.77 (3.82-4.97) M/mcL Hgb 13.8 (11.5-15.4) g/dL Hct 41.1 (35.3-44.9) % MCV 86.2 (83.0-100.0) fL MCH 28.9 (28.0-33.3) pg MCHC 33.6 (31.6-35.5) g/dL RDW 13.0 (11.5-14.5) % Plt Count 273 (140-400) K/mcL MPV 10.4 (9.4-12.4) fL Immature Gran % 0.5 (0-4) % Seg Neutrophils % 86.5 % Lymphocytes % 10.2 % Monocytes % 2.4 % Eosinophils % 0.0 % Basophils % 0.4 % Neutrophils # 9.6 H (1.6-8.9) K/mcL Lymphocytes # 1.1 (0.6-4.6) K/mcL Monocytes # 0.3 (0.0-1.3) K/mcL Eosinophils # 0.0 (0.0-0.6) K/mcL Basophils # 0.0 (0.0-0.2) K/mcL Sodium 136 (136-145) mEq/L Potassium 3.7 (3.5-4.5) mEq/L Chloride 104 (98-109) mEq/L Carbon Dioxide 21 (19-29) mEq/L BUN 9 (7-20) mg/dL Creatinine 0.76 (0.57-1.11) mg/dL Est GFR ( Amer) > 60 (> 60) Est GFR (Non-Af Amer) > 60 (> 60) BUN/Creatinine Ratio 12 (6-26) Glucose 160 H (70-99) mg/dL Calculated Osmolality 284 (280-300) Calcium 10.1 (8.6-10.8) mg/dL Total Bilirubin 0.8 (0.2-1.2) mg/dL AST 24 (5-34) Units/L ALT 53 (0-55) Units/L Alkaline Phosphatase 84 (38-126) Units/L Troponin I 0.00 (0-0.03) ng/mL Serum Total Protein 8.5 H (6.0-8.3) g/dL Albumin 4.4 (3.5-5.0) g/dL Globulin 4.1 H (2.4-3.5) g/dL Albumin/Globulin Ratio 1.1 (1.1-2.2) Amylase 39 (25-125) Units/L Lipase 46 (8-78) Units/L - EKG Data EKG #1 EKG attestation: Yes I reviewed and interpreted this EKG. EKG results narrative: Normal sinus rhythm at 76. Normal intervals. Normal axis. Normal QRS. Normal ST segments. Unchanged from April Attestation Statement - Attestation Attestation: I examined this patient and my medical decision-making was reviewed with the BEHAVIORAL HEALTH SPECIALIST/PA/Advanced Practice Nurse/Resident Physician. I agree with the documented findings, disposition and treatment plan as described except to the extent set forth below. Patient emergency department complaining of vomiting. History of the same. Patient states she has had trouble with this since 2013 and she is seeing "specialists". No fever. No abdominal pain. She does note that she has high blood pressure as well. On exam she is hypertensive with a systolic over 200. Abdomen soft. Actively retching. Plan. Patient had multiple episodes of vomiting despite multiple medications in the department. Still complains of nausea. Blood pressure improved. Will admit.
[2016-06-03] MEDS ORDERED: 0.9 % Sodium Chloride 1,000 ML IVC ONE (07:54)
[2016-06-03] MEDS ORDERED: *HR* Promethazine 25 MG/ML VIAL IVP ONE (07:55)
[2016-06-03] MEDS ORDERED: *HR* Metoprolol 5 MG/5 ML VIAL IVP ONE (08:06)
[2016-06-03 08:21] LABS: Basophils % 0.4 %; Hematocrit 41.1 % (35.3-44.9); Hemoglobin 13.8 g/dL (11.5-15.4); Immature Granulocytes % 0.5 % (0-4); Lymphocytes # 1.1 K/mcL (0.6-4.6); Lymphocytes % 10.2 %; Mean Corpuscular HGB Conc 33.6 g/dL (31.6-35.5); Mean Corpuscular Hemoglobin 28.9 pg (28.0-33.3); Mean Corpuscular Volume 86.2 fL (83.0-100.0); Mean Platelet Volume 10.4 fL (9.4-12.4); Monocytes # 0.3 K/mcL (0.0-1.3); Monocytes % 2.4 %; Neutrophils # 9.6 K/mcL (1.6-8.9); Platelet Count 273 K/mcL (140-400); Red Blood Count 4.77 M/mcL (3.82-4.97); Segmented Neutrophils % 86.5 %
[2016-06-03 08:34] LABS: Alanine Aminotransferase 53 Units/L (0-55); Albumin 4.4 g/dL (3.5-5.0); Albumin/Globulin Ratio 1.1 (1.1-2.2); Alkaline Phosphatase 84 Units/L (38-126); Amylase 39 Units/L (25-125); Aspartate Amino Transferase 24 Units/L (5-34); BUN/Creatinine Ratio 12 (6-26); Bilirubin,Total 0.8 mg/dL (0.2-1.2); Blood Urea Nitrogen 9 mg/dL (7-20); Calcium 10.1 mg/dL (8.6-10.8); Carbon Dioxide 21 mEq/L (19-29); Chloride 104 mEq/L (98-109); Globulin 4.1 g/dL (2.4-3.5); Glucose 160 mg/dL (70-99); Lipase 46 Units/L (8-78); Osmolality,Calculated 284 (280-300); Potassium 3.7 mEq/L (3.5-4.5); Sodium 136 mEq/L (136-145); Total Protein 8.5 g/dL (6.0-8.3); eGFR For African Americans > 60 (> 60); eGFR For Non-African Americans > 60 (> 60)
[2016-06-03] MEDS ORDERED: Haloperidol Lactate 5 MG/ML VIAL IVP ONE (08:36)
[2016-06-03] MEDS ORDERED: Metoclopramide 10 MG/2 ML VIAL IVP ONE (10:28)
[2016-06-03] MEDS ORDERED: *HR* Labetalol 20 MG/4 ML SYRINGE IVP STA (11:23)
[2016-06-03] MEDS ORDERED: Naloxone 0.4 MG/ML INJ IVP PRN (13:14)
[2016-06-03] MEDS: 0.9 % Sodium Chloride 1,000 ML IVC SCH ×2 (15:11→23:34)
--- NOTE | 2016-06-03 16:01 | Internal Med History&Physical ---
<Ivan Gonzalez - Last Filed: 06/03/16 18:16> Internal Medicine - H&P: HPI History of present illness: Ms. Stoddard is a 46 year old female Internal Medicine - H&P: Meds BuPROPion SR (12 HR) [Wellbutrin SR] 150 mg PO BID 12/07/15 [History] Labetalol HCl 200 mg PO BID 12/07/15 [History] Sertraline [Zoloft] 50 mg PO DAILY 12/07/15 [History] Metoclopramide [Reglan] 5 mg PO Q6HR PRN #15 ud.liq 12/10/15 [Rx] Lisinopril [Zestril] 5 mg PO DAILY #15 tablet 12/23/15 [Rx] CloNIDine HCl 0.1 mg PO DAILY PRN #20 tablet 04/18/16 [Rx] Promethazine [Phenergan] 25 mg PO Q6HR #30 tablet 06/03/16 [Rx] Topiramate [Topamax] 50 mg PO HS PRN 06/03/16 [History] Allergies No Known Allergies Allergy (Verified 04/15/16 05:45) All Systems PM: A 10-system review of systems was performed and is negative for pertinent findings except as documented above in the HPI. - Constitutional Vitals: Temp Pulse Resp BP Pulse Ox 97.8 F 102 16 173/105 97 06/03/16 14:28 06/03/16 16:22 06/03/16 14:28 06/03/16 18:02 06/03/16 14:28 Internal Med - H&P Results - Labs CBC & Chem 7: 06/03/16 08:13 06/03/16 08:13 - Attending Attestation I examined this patient in my medical decision making was reviewed with the nurse practitioner Claudia Pena. I agree with the documented findings, disposition and treatment plan as described with the simple additions noted below. #1 agree with the plan for intractable nausea and vomiting. She is even been treated with IV drip of Zofran without any help. IV Phenergan has been effective in selling down her nausea and vomiting so will continue for right now. #2 agree with management of the accelerated hypertension. Agree with metoprolol and hydralazine IV as as needed medicines. We have held her clonidine because in concerned about the possibility of the drug interaction between that and the labetalol. I will also increase the dose of lisinopril and will consider adding a dose of amlodipine as well as even get her blood pressures improved <Claudia Pena - Last Filed: 06/03/16 23:26> Date of Encounter: 06/03/16 Time of Encounter: 15:52 Assessment and Plan (1) Intractable vomiting with nausea Current visit: Yes Status: Acute Patient with nausea and vomiting, unable to keep down any PO medications. She has had these episodes multiple times over the last year, always accompanied by accelerated hypertension. She is being seen by nephrology for her hypertension and has seen Gastroenterology for work up as well. On exam, positive bowel sounds with mild epigastric tenderness. IV fluids 0.9NS at 100mL/hr IVP Phenergan PRN for nausea clear liquid diet as tolerated. Qualifiers: Vomiting type: unspecified Qualified Code(s): R11.2 - Nausea with vomiting , unspecified (2) Accelerated hypertension Current visit: Yes Status: Acute Initial blood pressure of 209/105 on presentation. She was given IV metoprolol and IV labetolol in ED and blood pressures came down to 160-180s/90s-110s. Patient has had previous hospitalizations for same issue. Echo 04/17/16 showed EF of 70%, Normal LV size and function, mild concentric LVG, milde LV diastolic dysfunction, no significant valvular dysfunction. She is following with nephrology as an outpatient. Metoprolol 5mg IVP Q6hr PRN for SBP > 160 and DBP > 100 Hydralazine 20mg IVP Q4hr PRN for SBP > 160 and DBP > 100 Transition to PO medications as tolerated. Follow up with nephrology as an outpatient. (3) Morbid obesity with BMI of 40.0-44.9, adult Current visit: Yes Status: Acute (4) DVT prophylaxis Current visit: Yes Status: Acute encourage ambulation anti-embolic stockings Lovenox 40mg SQ daily Internal Medicine - H&P: HPI Chief complaint: vomitting Admitted From: Emergency Dept Plans for Post Hospital Care: Home History of present illness: Ms. Stoddard is a 46 year old female with hypertension who presented to the emergency department today with uncontrolled nausea and vomiting and elevated blood pressure. She reportedly had a in 2013 where she had problems with gis-uh-dvhvwbu blood pressure resulting unfortunately in early delivery of the baby who did not survive. Since that time she has had episodes of extremely high blood pressure accompanied by intractable nausea and vomiting multiple times. Most recently she was hospitalized in March with similar symptoms and had clonidine when necessary added to her regimen, and she is following with nephrology. She reports yesterday evening and at approximately 8 PM she had one episode of diarrhea followed by uncontrolled nausea and vomiting and was up all night with vomiting. She has had no diarrhea since then. She denies any headache, chest pain, palpitations, shortness of breath. She reports occasional lightheadedness. She reports some mild abdominal pain she attributes to the vomiting. She denies any numbness or tingling. Denies any fever. She reports that while she is vomiting she gets cold sweats. On presentation to the emergency department her blood pressure was 209/105. Other evaluation included EKG which showed normal sinus rhythm and no changes from previous heart rate of 76. Troponin was negative at 0.00 labs are grossly normal. He was given IV metoprolol, and IV labetalol, for her excessive hypertension blood pressures improved somewhat to 160s-180s/90s-110s. She was given IV push Phenergan and Reglan to control her nausea. On exam, patient is alert and oriented, in no acute distress. Lungs are clear bilaterally to auscultation heart has systolic murmur but regular rate and rhythm. She has mild abdominal tenderness on palpation. Past Med Surg Social Fam HX - Past Medical History Medical history: hypertension, migraine, other Psychiatric history: depression - Past Surgical History Surgical History: , cholecystectomy, other - Social History Smoking Status: Never smoker Smokeless Tobacco Status: No Alcohol use: rarely Drug use: none - Family History Mother Living Status: Still Living Hx Family Endocrine Disorder: Yes (DM) Father Living Status: Age at : 60 Cause of : colon cancer All Systems PM: A 10-system review of systems was performed and is negative for pertinent findings except as documented above in the HPI. - Constitutional Constitutional: no chills, no fever(s), no night sweats - EENT Eyes: no change in vision, no discharge, no pain, no photophobia Ears: no ear discharge, no ear pain, no tinnitus Nose, mouth and throat: no dysphagia, no nasal discharge, no neck pain, no sore throat - Cardiovascular Cardiovascular ROS IM: lightheadedness, no chest pain, no diaphoresis, no dyspnea, no palpitations, no syncope - Respiratory Respiratory: no cough, no dyspnea, no wheezing, no excessive phlegm production - Gastrointestinal Gastrointestinal: abdominal pain, nausea, vomiting, no diarrhea, no hematemesis , no hematochezia, no melena - Genitourinary Genitourinary: no change in urinary stream, no dysuria, no flank pain, no hematuria - Musculoskeletal Musculoskeletal ROS IM: no numbness, no tingling - Integumentary Integumentary IM: no rash, no unusual bruising - Neurological Neurological ROS: no confusion, no convulsions, no focal weakness, no numbness, no tingling, no tremor(s) - Hematologic/Lymphatic Hematologic/Lymphatic: no easy bruising - Constitutional Vitals: Temp Pulse Resp BP Pulse Ox 97.8 F 72 16 181/116 97 06/03/16 14:28 06/03/16 14:28 06/03/16 14:28 06/03/16 14:28 06/03/16 14:28 General appearance: Present: A&O X 3, no acute distress, obese - Head Head exam: Present: atraumatic, normocephalic - Eye Eye exam: Present: PERRL, conjuntiva pink, sclera anicteric Pupils: Present: PERRL - Neck Neck exam general surgery: Present: supple, trachea midline. Absent: lymphadenopathy - Respiratory Respiratory exam: Present: CTAB. Absent: accessory muscle use, rales, rhonchi, wheezes - Cardiovascular Cardiovascular exam: Present: RRR, +S1, +S2, systolic murmur. Absent: diastolic murmur, gallop, rubs - GI/Abdominal GI/Abdominal exam: Present: normal bowel sounds, soft, tenderness (mild epigastric), no peritoneal signs. Absent: distended - Extremities Exam Extremities exam: Present: warm, radial pulses palpable and symetrical. Absent : calf tenderness, cyanotic, pedal edema - Neurological Exam Neurological exam: Present: CN II-XII intact, oriented X3, no focal deficits. Absent: facial droop, speech deficit - Skin Skin exam: Present: dry, intact Internal Med - H&P Results - Labs CBC & Chem 7: 06/03/16 08:13 06/03/16 08:13 Labs: All Lab Results (24 Hours) 06/03/16 06/03/16 06/03/16 Range/Units 08:13 08:13 08:13 WBC 11.1 (4.3-11.1) K/mcL RBC 4.77 (3.82-4.97) M/mcL Hgb 13.8 (11.5-15.4) g/dL Hct 41.1 (35.3-44.9) % MCV 86.2 (83.0-100.0) fL MCH 28.9 (28.0-33.3) pg MCHC 33.6 (31.6-35.5) g/dL RDW 13.0 (11.5-14.5) % Plt Count 273 (140-400) K/mcL MPV 10.4 (9.4-12.4) fL Immature Gran % 0.5 (0-4) % Seg Neutrophils % 86.5 % Lymphocytes % 10.2 % Monocytes % 2.4 % Eosinophils % 0.0 % Basophils % 0.4 % Neutrophils # 9.6 H (1.6-8.9) K/mcL Lymphocytes # 1.1 (0.6-4.6) K/mcL Monocytes # 0.3 (0.0-1.3) K/mcL Eosinophils # 0.0 (0.0-0.6) K/mcL Basophils # 0.0 (0.0-0.2) K/mcL Sodium 136 (136-145) mEq/L Potassium 3.7 (3.5-4.5) mEq/L Chloride 104 (98-109) mEq/L Carbon Dioxide 21 (19-29) mEq/L BUN 9 (7-20) mg/dL Creatinine 0.76 (0.57-1.11) mg/dL Est GFR ( Amer) > 60 (> 60) Est GFR (Non-Af Amer) > 60 (> 60) BUN/Creatinine Ratio 12 (6-26) Glucose 160 H (70-99) mg/dL Calculated Osmolality 284 (280-300) Calcium 10.1 (8.6-10.8) mg/dL Total Bilirubin 0.8 (0.2-1.2) mg/dL AST 24 (5-34) Units/L ALT 53 (0-55) Units/L Alkaline Phosphatase 84 (38-126) Units/L Troponin I 0.00 (0-0.03) ng/mL Serum Total Protein 8.5 H (6.0-8.3) g/dL Albumin 4.4 (3.5-5.0) g/dL Globulin 4.1 H (2.4-3.5) g/dL Albumin/Globulin Ratio 1.1 (1.1-2.2) Amylase 39 (25-125) Units/L Lipase 46 (8-78) Units/L
[2016-06-03] MEDS: *HR* Metoprolol 5 MG/5 ML VIAL IVP PRN (18:27)
[2016-06-03] MEDS: *HR* Promethazine 25 MG/ML VIAL IVP PRN (19:46)
[2016-06-03] MEDS: BuPROPion SR (12 HR) 150 MG TABLET PO SCH (20:52)
[2016-06-03] MEDS: Topiramate 25 MG CAP.SPRINK PO PRN (20:52)
[2016-06-04] MEDS: Fluticasone Propionate Nasal 50 MCG/SPRAY BOTTLE NS PRN ×2 (02:04→09:20)
[2016-06-04 03:51] LABS: Basophils # 0.1 K/mcL (0.0-0.2); Basophils % 0.3 %; Eosinophils % 0.1 %; Hematocrit 44.2 % (35.3-44.9); Hemoglobin 14.1 g/dL (11.5-15.4); Immature Granulocytes % 0.8 % (0-4); Lymphocytes # 2.3 K/mcL (0.6-4.6); Lymphocytes % 11.8 %; Mean Corpuscular HGB Conc 31.9 g/dL (31.6-35.5); Mean Corpuscular Hemoglobin 28.5 pg (28.0-33.3); Mean Corpuscular Volume 89.3 fL (83.0-100.0); Mean Platelet Volume 11.4 fL (9.4-12.4); Monocytes # 1.3 K/mcL (0.0-1.3); Monocytes % 6.8 %; Platelet Count 251 K/mcL (140-400); Red Blood Count 4.95 M/mcL (3.82-4.97); Red Cell Distribution Width 13.5 % (11.5-14.5); Segmented Neutrophils % 80.2 %
[2016-06-04 03:53] LABS: Neutrophils # 15.7 K/mcL (1.6-8.9)
[2016-06-04 04:18] LABS: BUN/Creatinine Ratio 11 (6-26); Blood Urea Nitrogen 7 mg/dL (7-20); Calcium 9.6 mg/dL (8.6-10.8); Carbon Dioxide 20 mEq/L (19-29); Chloride 103 mEq/L (98-109); Glucose 125 mg/dL (70-99); Osmolality,Calculated 277 (280-300); Potassium 3.3 mEq/L (3.5-4.5); Sodium 134 mEq/L (136-145); eGFR For African Americans > 60 (> 60); eGFR For Non-African Americans > 60 (> 60)
[2016-06-04] MEDS ORDERED: Lisinopril 20 MG TABLET PO SCH (09:00)
[2016-06-04] MEDS: BuPROPion SR (12 HR) 150 MG TABLET PO SCH ×2 (09:03→21:31)
[2016-06-04] MEDS: 0.9 % Sodium Chloride 1,000 ML IVC SCH ×2 (09:04→21:33)
--- NOTE | 2016-06-04 13:16 | Internal Med Progress Note ---
Date of Encounter: 06/04/16 Time of Encounter: 13:14 - Assessment and plan (1) Leukocytosis Current Visit: Yes Status: Acute Assessment and plan: needs further evaluation source of infection check ua chest x ray and ct of sinus Qualifiers: Leukocytosis type: bandemia Qualified Code(s): D72.825 - Bandemia (2) Intractable vomiting with nausea Current Visit: Yes Status: Acute Assessment and plan: resolving Qualifiers: Vomiting type: unspecified Qualified Code(s): R11.2 - Nausea with vomiting , unspecified (3) Accelerated hypertension Current Visit: Yes Status: Acute Assessment and plan: will start on po BP meds (4) Hypertension, accelerated Current Visit: No Status: Chronic Assessment and plan: being evaluated for secondary cause (5) Tension headache Current Visit: No Status: Acute Assessment and plan: likey sinus headache (6) Morbid obesity with BMI of 40.0-44.9, adult Current Visit: Yes Status: Chronic Assessment and plan: chronic - Subjective Interval history: patient admitted with severe nausea and vomitting and htn urgency BP better on iv meds and nausea and vomitting resolved wbc up to 19k complains of sinus pain congestion and headache no fever and chills lung clear - Constitutional Vitals: Temp Pulse Resp BP Pulse Ox 97.5 F L 87 18 125/75 96 06/04/16 10:52 06/04/16 10:52 06/04/16 10:52 06/04/16 10:52 06/04/16 10:52 General appearance: Present: A&O X 3, no acute distress, obese - Eye Eye exam: Present: PERRL, conjuntiva pink, sclera anicteric Pupils: Present: PERRL - Neck Neck exam general surgery: Present: supple, trachea midline. Absent: lymphadenopathy - Respiratory Respiratory exam: Present: CTAB. Absent: accessory muscle use, rales, rhonchi, wheezes - Cardiovascular Cardiovascular exam: Present: RRR, +S1, +S2. Absent: diastolic murmur, gallop, rubs, systolic murmur - Extremities Exam Extremities exam: Present: warm, radial pulses palpable and symetrical. Absent : calf tenderness, cyanotic, pedal edema Internal Medicine: Result - Labs CBC & Chem 7: 06/04/16 03:23 06/04/16 03:23 Labs: Short CBC 06/04/16 Range/Units 03:23 WBC 19.6 H D (4.3-11.1) K/mcL Hgb 14.1 (11.5-15.4) g/dL Hct 44.2 (35.3-44.9) % Plt Count 251 (140-400) K/mcL Neutrophils # 15.7 H (1.6-8.9) K/mcL BMP 06/04/16 03:23 Sodium 134 L Potassium 3.3 L Chloride 103 Carbon Dioxide 20 BUN 7 Creatinine 0.65 Glucose 125 H Calcium 9.6 Consult Discharge Plan - Plan Referrals: Kylah Wood DO [Primary Care Provider] -
[2016-06-04] MEDS: *HR* Promethazine 25 MG/ML VIAL IVP PRN ×2 (15:58→23:52)
[2016-06-04 16:51] LABS: Bilirubin,Urine Negative (Negative); Blood,Urine Negative (Negative); Clarity,Urine Clear (Clear); Color,Urine Yellow (Yellow); Glucose,Urine (UA) Normal (Normal); Ketones,Urine Negative (Negative); Leukocyte Esterase,Urine Negative (Negative); Nitrite,Urine Negative (Negative); Protein,Urine Negative (Neg-Trace); Urobilinogen,Urine Normal (Normal)
--- NOTE | 2016-06-04 19:29 | Electrocardiograph Report ---
[address] [address] Test Date: 2016-06-03 Pat Name: Yara Stoddard Department: 104 Room: 3B46 Gender: F Recordak Operator: BEE : 1970 Requested By: Rebecca See Order Number: [id number] Reading MD: Nuno Roldan MD Measurements Intervals [place] Rate: 76 P: 50 NV: 154 QRS: 14 QRSD: 98 T: 38 QT: 403 QTc: 434 Interpretive Statements SINUS RHYTHM Electronically Signed On 06-04-2016 19:27:57 EDT by Nuno Roldan MD
[2016-06-04] MEDS: Topiramate 25 MG CAP.SPRINK PO PRN (21:31)
[2016-06-05] MEDS: *HR* Metoprolol 5 MG/5 ML VIAL IVP PRN ×2 (00:02→07:26)
[2016-06-05 03:56] LABS: Hematocrit 42.8 % (35.3-44.9); Hemoglobin 14.2 g/dL (11.5-15.4); Mean Corpuscular HGB Conc 33.2 g/dL (31.6-35.5); Mean Corpuscular Hemoglobin 28.6 pg (28.0-33.3); Mean Corpuscular Volume 86.1 fL (83.0-100.0); Mean Platelet Volume 10.5 fL (9.4-12.4); Platelet Count 285 K/mcL (140-400); Red Blood Count 4.97 M/mcL (3.82-4.97); Red Cell Distribution Width 13.4 % (11.5-14.5)
[2016-06-05 04:09] LABS: BUN/Creatinine Ratio 12 (6-26); Blood Urea Nitrogen 8 mg/dL (7-20); Calcium 9.6 mg/dL (8.6-10.8); Carbon Dioxide 20 mEq/L (19-29); Chloride 104 mEq/L (98-109); Glucose 120 mg/dL (70-99); Osmolality,Calculated 280 (280-300); Potassium 3.3 mEq/L (3.5-4.5); Sodium 135 mEq/L (136-145); eGFR For African Americans > 60 (> 60); eGFR For Non-African Americans > 60 (> 60)
[2016-06-05] MEDS: *HR* Promethazine 25 MG/ML VIAL IVP PRN ×2 (07:26→14:09)
--- NOTE | 2016-06-05 08:57 | Internal Med Progress Note ---
Date of Encounter: 06/05/16 Time of Encounter: 08:55 - Assessment and plan (1) Leukocytosis Current Visit: Yes Status: Acute Assessment and plan: wbc down to 12.7 work up all negative, ct of sinus, chest x ray and ua all negative no indication of acute infection Qualifiers: Leukocytosis type: bandemia Qualified Code(s): D72.825 - Bandemia (2) Intractable vomiting with nausea Current Visit: Yes Status: Acute Assessment and plan: still has nausea but no vomitting Qualifiers: Vomiting type: unspecified Qualified Code(s): R11.2 - Nausea with vomiting , unspecified (3) Accelerated hypertension Current Visit: Yes Status: Acute Assessment and plan: still uncontrolled has referal to nephrology for evaluation for secondary etiology increased labetalol to 400mg tid plan on dc tomorrow (4) Hypertension, accelerated Current Visit: No Status: Chronic (5) Tension headache Current Visit: No Status: Acute Assessment and plan: sinus Ct negative for acute sinusitis (6) Morbid obesity with BMI of 40.0-44.9, adult Current Visit: Yes Status: Chronic Assessment and plan: chronic - Subjective Interval history: patient admitted with severe nausea and vomitting and htn urgency BP better on iv meds and nausea and vomitting resolved wbc up to 19k complains of sinus pain congestion and headache no fever and chills lung clear today complains of nausea no fever or chills BP still high 190 systolic today wbc is down - Constitutional Vitals: Temp Pulse Resp BP Pulse Ox 98.1 F 98 16 190/108 97 06/05/16 06:56 06/05/16 06:56 06/05/16 06:56 06/05/16 06:56 06/05/16 06:56 General appearance: Present: A&O X 3, no acute distress, obese - Head Head exam: Present: atraumatic, normocephalic - Eye Eye exam: Present: PERRL, conjuntiva pink, sclera anicteric Pupils: Present: PERRL - Neck Neck exam general surgery: Present: supple, trachea midline. Absent: lymphadenopathy - Respiratory Respiratory exam: Present: CTAB. Absent: accessory muscle use, rales, rhonchi, wheezes - Cardiovascular Cardiovascular exam: Present: RRR, +S1, +S2. Absent: diastolic murmur, gallop, rubs, systolic murmur - GI/Abdominal GI/Abdominal exam: Present: normal bowel sounds, soft, no peritoneal signs. Absent: distended, tenderness - Extremities Exam Extremities exam: Present: warm, radial pulses palpable and symetrical. Absent : calf tenderness, cyanotic, pedal edema Internal Medicine: Result - Labs CBC & Chem 7: 06/05/16 03:28 06/05/16 03:28 Labs: Short CBC 06/05/16 Range/Units 03:28 WBC 12.7 H (4.3-11.1) K/mcL Hgb 14.2 (11.5-15.4) g/dL Hct 42.8 (35.3-44.9) % Plt Count 285 (140-400) K/mcL BMP 06/05/16 03:28 Sodium 135 L Potassium 3.3 L Chloride 104 Carbon Dioxide 20 BUN 8 Creatinine 0.68 Glucose 120 H Calcium 9.6 Urine 06/04/16 Range/Units 16:00 Urine Color Yellow (Yellow) Urine Clarity Clear (Clear) Urine pH 7.0 (5.0-8.0) pH Units Ur Specific [place] 1.010 (1.010-1.025) Urine Protein Negative (Neg-Trace) mg/dL Urine Glucose (UA) Normal (Normal) mg/dL - Impressions Impressions Chest X-Ray 06/04/16 13:03 IMPRESSION: No acute cardiopulmonary process. D/ / 06/04/2016 14:09:43 Rajeev Ireland MD / [facility] Interpreting Provider: Rajeev Ireland MD Sinuses CT 06/04/16 13:09 IMPRESSION: No acute sinusitis. The ostiomeatal units are patent. Mild mucoperiosteal thickening of the inferior turbinate on the left. The nasal passages are not obstructed however. D/ / Rajeev Douglas MD / Rajeev Douglas MD Interpreting Provider: Rajeev Douglas MD Consult Discharge Plan - Plan Referrals: Kylah Wood DO [Primary Care Provider] -
[2016-06-05] MEDS: Lisinopril 20 MG TABLET PO SCH (09:21)
[2016-06-05] MEDS: BuPROPion SR (12 HR) 150 MG TABLET PO SCH ×2 (09:21→20:26)
[2016-06-05] MEDS: 0.9 % Sodium Chloride 1,000 ML IVC SCH ×2 (12:25→22:21)
[2016-06-05] MEDS ORDERED: *HR* Labetalol 20 MG/4 ML SYRINGE IVP PRN (13:38)
[2016-06-05] MEDS: Ondansetron 4 MG/2 ML VIAL IVP PRN ×2 (15:38→20:26)
[2016-06-05] MEDS: Topiramate 25 MG CAP.SPRINK PO PRN (22:23)
[2016-06-05] MEDS ORDERED: Famotidine 20 MG/2 ML VIAL IVP ONE (23:55)
[2016-06-06] MEDS: Ondansetron 4 MG/2 ML VIAL IVP PRN (00:25)
[2016-06-06 04:47] LABS: Hematocrit 40.4 % (35.3-44.9); Hemoglobin 13.4 g/dL (11.5-15.4); Mean Corpuscular HGB Conc 33.2 g/dL (31.6-35.5); Mean Corpuscular Hemoglobin 28.4 pg (28.0-33.3); Mean Corpuscular Volume 85.6 fL (83.0-100.0); Mean Platelet Volume 10.8 fL (9.4-12.4); Platelet Count 269 K/mcL (140-400); Red Blood Count 4.72 M/mcL (3.82-4.97); Red Cell Distribution Width 13.1 % (11.5-14.5)
[2016-06-06 05:08] LABS: BUN/Creatinine Ratio 12 (6-26); Blood Urea Nitrogen 8 mg/dL (7-20); Calcium 9.3 mg/dL (8.6-10.8); Carbon Dioxide 19 mEq/L (19-29); Chloride 107 mEq/L (98-109); Glucose 107 mg/dL (70-99); Magnesium 1.8 mg/dL (1.6-2.6); Osmolality,Calculated 279 (280-300); Potassium 3.5 mEq/L (3.5-4.5); Sodium 135 mEq/L (136-145); eGFR For African Americans > 60 (> 60); eGFR For Non-African Americans > 60 (> 60)
[2016-06-06] MEDS: BuPROPion SR (12 HR) 150 MG TABLET PO SCH (08:41)
[2016-06-06] MEDS: Lisinopril 20 MG TABLET PO SCH (08:42)
[2016-06-06 10:52] VITALS: BP 132/80
--- NOTE | 2016-06-06 13:30 | Discharge Summary ---
Date of Encounter: 06/06/16 Time of Encounter: 13:26 - Discharge Diagnosis (1) Leukocytosis Priority: Secondary Status: Resolved Comments: resolved Qualifiers: Leukocytosis type: bandemia Qualified Code(s): D72.825 - Bandemia (2) Intractable vomiting with nausea Priority: Primary Status: Resolved Comments: resolved Qualifiers: Vomiting type: unspecified Qualified Code(s): R11.2 - Nausea with vomiting , unspecified (3) Accelerated hypertension Priority: Secondary Status: Acute Comments: now controlled OP evaluation for seconday causes (4) Hypertension, accelerated Priority: Secondary Status: Chronic (5) Tension headache Priority: Secondary Status: Acute Comments: resolved (6) Morbid obesity with BMI of 40.0-44.9, adult Priority: Secondary Status: Chronic Comments: chronic - Discharge Medications Prescriptions: Labetalol [Trandate] 400 mg PO TID 90 Days Lisinopril [Zestril] 20 mg PO DAILY #30 tablet Home Medications: BuPROPion SR (12 HR) [Wellbutrin SR] 150 mg PO BID 12/07/15 [History] Sertraline [Zoloft] 50 mg PO DAILY 12/07/15 [History] Metoclopramide [Reglan] 5 mg PO Q6HR PRN #15 ud.liq 12/10/15 [Rx] CloNIDine HCl 0.1 mg PO DAILY PRN #20 tablet 04/18/16 [Rx] Promethazine [Phenergan] 25 mg PO Q6HR #30 tablet 06/03/16 [Rx] Topiramate [Topamax] 50 mg PO HS PRN 06/03/16 [History] Labetalol [Trandate] 400 mg PO TID 90 Days 06/06/16 [Rx] Lisinopril [Zestril] 20 mg PO DAILY #30 tablet 06/06/16 [Rx] Allergies/Adverse Reactions: Allergies No Known Allergies Allergy (Verified 04/15/16 05:45) Procedures/tests Complete & Pending: Procedures Performed prior 72 hours Category Date Time Status CT sinus wo con [CT] Routine Cat Scan 06/04/16 13:09 Completed Date of admission: 06/03/16 11:10 Primary care physician: Kylah Wood, Discharging clinician: Bashri Jimenez Anticipated date of discharge: 06/06/16 - Patient Status Disposition: Home, Self-Care Condition: Good Overall status at discharge: patient is back to baseline - Discharge Instructions - Diet and Activity Activity: increase activity as tolerated Diet: advance to your usual diet Hospital course: Ms. Stoddard is a 46 year old female - Time Spent with Patient Total time spent providing and/or coordinating discharge services: - Constitutional Vitals: Temp Pulse Resp BP Pulse Ox 97.6 F 71 16 132/80 96 06/06/16 10:50 06/06/16 10:50 06/06/16 10:50 06/06/16 10:50 06/06/16 10:50 General appearance: Present: A&O X 3, no acute distress, obese
== END 2016-06-06 14:49 | disposition home or self-care (01) ==
LOC: EMEROO 07:38 → 3BNU 07:38
PROVIDERS: ADMIT Nurse Practitioner Acute Care; ATTEND Internal Medicine Cardiovascular Disease

== ENCOUNTER 2016-08-04 18:53 | Inpatient (IN) ==
[2016-08-04] MEDS ORDERED: Ondansetron 4 MG/2 ML VIAL IVP ONE (18:57)
[2016-08-04] MEDS ORDERED: *HR* HYDROmorphone (PF) 1 MG/ML SYRINGE IVP ONE (18:57)
--- NOTE | 2016-08-04 19:13 | Emergency Department Note ---
Disposition Clinical Impression: Nausea & vomiting Qualifiers: Vomiting type: unspecified Vomiting Intractability: intractable Qualified Code( s): R11.2 - Nausea with vomiting, unspecified Hypertension Qualifiers: Hypertension type: unspecified secondary hypertension Qualified Code(s): I15.9 - Secondary hypertension, unspecified; I15 - Secondary hypertension Disposition: Admitted As Inpatient Condition: Good Referrals: Yogesh Luther, [Primary Care Provider] - Forms: Work/School Release, ED Satisfaction Letter Time of Disposition: 23:05 Abdominal Pain HPI - General Chief Complaint: ED Abdominal Pain Stated Complaint: N/V, abdominal pain Time Seen by Provider: 08/04/16 18:56 Source: patient, EMS Mode of arrival: EMS Limitations: no limitations Nursing Notes Reviewed: Yes Vital Signs Reviewed: Yes - History of Present Illness HPI Narrative: 46-year-old female who comes in complaining of nausea vomiting for last 3-4 days. States that her blood pressures been running high squad reports blood pressure with a diastolic 118. Patient denies any history of abdominal problems. Pt Subjective Complaint: abdominal pain Onset (ago): day(s) (3-4 days) Consistency: constant Location: diffuse Pain Severity: moderate Quality: cramping, aching Radiation: none Migration to: no migration Improves with: nothing Worsens with: eating - Related Data Home Medications Medication Instructions Recorded Confirmed BuPROPion SR (12 HR) [Wellbutrin 150 mg PO BID 12/07/15 08/04/16 SR] Sertraline [Zoloft] 50 mg PO DAILY 12/07/15 08/04/16 Labetalol HCl 200 mg PO BID 08/04/16 08/04/16 Lisinopril [Zestril] 5 mg PO DAILY 08/04/16 08/04/16 aMILoride [Midamor] 5 mg PO DAILY 08/04/16 08/04/16 Allergies Allergy/AdvReac Type Severity Reaction Status Date / Time No Known Allergies Allergy Verified 04/15/16 05:45 Constitutional: Denies: fever, chills, weakness, weight change Eyes: Denies: eye pain, eye discharge, vision change ENT ED: Denies: ear pain, throat pain, dental pain, hearing loss, epistaxis, congestion, dysphagia Cardiovascular: Denies: chest pain, palpitations, dyspnea on exertion, edema, syncope Respiratory: Denies: cough, dyspnea, wheezes, hemoptysis, stridor Gastrointestinal: Reports: abdominal pain, nausea, vomiting. Denies: diarrhea, constipation, hematemesis, melena, hematochezia Genitourinary: Denies: dysuria, frequency, hematuria, discharge Musculoskeletal: Denies: back pain, neck pain, arthralgia, myalgia Integumentary: Denies: rash, abrasion, lesions Neurological: Denies: headache, weakness, numbness, paresthesias, confusion, abnormal gait, vertigo Psychiatric: Denies: anxiety, depression, suicidal thoughts, homicidal thoughts , auditory hallucinations, visual hallucinations Endocrine: Denies: fatigue Hematological/Lymphatic: Denies: easy bleeding, easy bruising Allergic/Immunologic: Denies: facial swelling, urticaria Abdominal Pain PMH - Past Medical History Medical history: Reports: hypertension, migraine, other Female Surgical History: Reports: non-contributory [employer] history: Reports: no [employer] history Psychiatric history: Reports: depression - Social History Smoking status: Never smoker Alcohol use: Reports: rarely Drug use: Reports: none Physical Exam - General Limitations: no limitations General appearance: alert, in no apparent distress - Head Head exam: atraumatic, normocephalic, normal inspection - Eye Eye exam: Present: normal appearance, PERRL, EOMI - ENT ENT exam: normal exam, normal oropharynx, mucous membranes moist - Neck Neck exam: Present: normal inspection, full ROM, trachea midline - Chest Chest inspection: Present: normal inspection, symmetric chest wall rise - Respiratory Respiratory exam: Present: normal lung sounds bilaterally - Cardiovascular Cardiovascular exam: Present: regular rate, normal rhythm, normal heart sounds - Abdominal Exam Abdominal exam: Present: tenderness. Absent: guarding, rebound Abdominal tenderness: Present: diffuse - Extremities Exam Extremities exam: Present: normal inspection, full ROM. Absent: tenderness, pedal edema - Expanded Lower Extremity Exam Neurovascular/Tendon exam: Absent: motor deficit, sensory deficit, tendon deficit Gait: not tested/not observed - Back Exam Back exam: Present: normal inspection, full ROM. Absent: tenderness - Neurological Exam Neurological exam: Present: alert, oriented X3 - Psychiatric Psychiatric exam: Present: normal affect, normal mood - Skin Skin exam: Present: warm, dry, intact, normal color Course - Reevaluation(s) Reevaluation #1: 46-year-old who has a history of recurrent episodes of vomiting and also elevated blood pressure. Patient presented with recurrent vomiting. Workup included CT of the abdomen which was negative. CT of the abdomen was negative. Patient's blood pressure was extremely high with a diastolic in the 136 range. Patient was started on nicardipine was titrated up to 5 mg/h with improvement down to 168/84. Time: 23:02 - Consultations Consultation #1: Discussed with Dr. Vines, it. Time: 23:03 Vital Signs Temperature 98.3 F 08/04/16 18:54 Pulse Rate 101 08/04/16 18:54 Respiratory Rate 22 08/04/16 18:54 Blood Pressure 226/133 08/04/16 18:54 O2 Sat by Pulse Oximetry 98 08/04/16 18:54 Temperature 98.3 F 08/04/16 18:54 Pulse Rate 120 08/04/16 22:09 Respiratory Rate 16 08/04/16 22:09 Blood Pressure 182/97 08/04/16 22:09 O2 Sat by Pulse Oximetry 98 08/04/16 22:09 Oxygen Delivery Oxygen Delivery Room Air Abdominal Pain - Lab Data Lab results reviewed: Yes I reviewed the patient's lab results. Result diagrams: 08/04/16 19:46 08/04/16 19:46 Lab Results 08/04/16 08/04/16 08/04/16 Range/Units 19:46 19:46 19:46 WBC 15.5 H (4.3-11.1) K/mcL RBC 5.53 H (3.82-4.97) M/mcL Hgb 16.4 H (11.5-15.4) g/dL Hct 45.9 H (35.3-44.9) % MCV 83.0 (83.0-100.0) fL MCH 29.7 (28.0-33.3) pg MCHC 35.7 H (31.6-35.5) g/dL RDW 12.3 (11.5-14.5) % Plt Count 328 (140-400) K/mcL MPV 10.8 (9.4-12.4) fL Immature Gran % 0.3 (0-4) % Seg Neutrophils % 78.5 % Lymphocytes % 15.7 % Monocytes % 5.0 % Eosinophils % 0.1 % Basophils % 0.4 % Neutrophils # 12.1 H (1.6-8.9) K/mcL Lymphocytes # 2.4 (0.6-4.6) K/mcL Monocytes # 0.8 (0.0-1.3) K/mcL Eosinophils # 0.0 (0.0-0.6) K/mcL Basophils # 0.1 (0.0-0.2) K/mcL Sodium 136 (136-145) mEq/L Potassium 2.9 L (3.5-4.5) mEq/L Chloride 97 L (98-109) mEq/L Carbon Dioxide 24 (19-29) mEq/L BUN 19 (7-20) mg/dL Creatinine 0.83 (0.57-1.11) mg/dL Est GFR ( Amer) > 60 (> 60) Est GFR (Non-Af Amer) > 60 (> 60) BUN/Creatinine Ratio 23 (6-26) Glucose 138 H (70-99) mg/dL Calculated Osmolality 286 (280-300) Lactic Acid (0.5-2.2) mmol/L Calcium 10.4 (8.6-10.8) mg/dL Total Bilirubin 1.0 (0.2-1.2) mg/dL Direct Bilirubin 0.4 (0.0-0.5) mg/dL Indirect Bilirubin 0.6 (0.0-1.2) mg/dL AST 27 (5-34) Units/L ALT 43 (0-55) Units/L Alkaline Phosphatase 81 (38-126) Units/L Troponin I (0-0.03) ng/mL Serum Total Protein 8.7 H (6.0-8.3) g/dL Albumin 4.5 (3.5-5.0) g/dL Globulin 4.2 H (2.4-3.5) g/dL Albumin/Globulin Ratio 1.1 (1.1-2.2) Amylase 41 (25-125) Units/L Lipase 62 (8-78) Units/L Serum , Qual Negative (Negative) Urine Color (Yellow) Urine Clarity (Clear) Urine pH (5.0-8.0) pH Units Ur Specific [place] (1.010-1.025) Urine Protein (Neg-Trace) mg/dL Urine Glucose (UA) (Normal) mg/dL Urine Ketones (Negative) mg/dL Urine Blood (Negative) Urine Nitrite (Negative) Urine Bilirubin (Negative) Urine Urobilinogen (Normal) mg/dL Ur Leukocyte Esterase (Negative) Urine Microscopic RBC (0-3) per hpf Urine Microscopic WBC (0-3) per hpf Ur Squamous Epith Cells (None-Few) per lpf Urine Bacteria (None-Few) per hpf Hyaline Casts (None-Few) per lpf Ur Culture Indicated? (NO) 08/04/16 08/04/16 08/04/16 Range/Units 19:46 19:51 21:23 WBC (4.3-11.1) K/mcL RBC (3.82-4.97) M/mcL Hgb (11.5-15.4) g/dL Hct (35.3-44.9) % MCV (83.0-100.0) fL MCH (28.0-33.3) pg MCHC (31.6-35.5) g/dL RDW (11.5-14.5) % Plt Count (140-400) K/mcL MPV (9.4-12.4) fL Immature Gran % (0-4) % Seg Neutrophils % % Lymphocytes % % Monocytes % % Eosinophils % % Basophils % % Neutrophils # (1.6-8.9) K/mcL Lymphocytes # (0.6-4.6) K/mcL Monocytes # (0.0-1.3) K/mcL Eosinophils # (0.0-0.6) K/mcL Basophils # (0.0-0.2) K/mcL Sodium (136-145) mEq/L Potassium (3.5-4.5) mEq/L Chloride (98-109) mEq/L Carbon Dioxide (19-29) mEq/L BUN (7-20) mg/dL Creatinine (0.57-1.11) mg/dL Est GFR ( Amer) (> 60) Est GFR (Non-Af Amer) (> 60) BUN/Creatinine Ratio (6-26) Glucose (70-99) mg/dL Calculated Osmolality (280-300) Lactic Acid 0.9 (0.5-2.2) mmol/L Calcium (8.6-10.8) mg/dL Total Bilirubin (0.2-1.2) mg/dL Direct Bilirubin (0.0-0.5) mg/dL Indirect Bilirubin (0.0-1.2) mg/dL AST (5-34) Units/L ALT (0-55) Units/L Alkaline Phosphatase (38-126) Units/L Troponin I 0.01 (0-0.03) ng/mL Serum Total Protein (6.0-8.3) g/dL Albumin (3.5-5.0) g/dL Globulin (2.4-3.5) g/dL Albumin/Globulin Ratio (1.1-2.2) Amylase (25-125) Units/L Lipase (8-78) Units/L Serum , Qual (Negative) Urine Color Yellow (Yellow) Urine Clarity Clear (Clear) Urine pH 6.5 (5.0-8.0) pH Units Ur Specific [place] > 1.030 H (1.010-1.025) Urine Protein 100 H (Neg-Trace) mg/dL Urine Glucose (UA) Normal (Normal) mg/dL Urine Ketones 80 H (Negative) mg/dL Urine Blood Moderate H (Negative) Urine Nitrite Negative (Negative) Urine Bilirubin Negative (Negative) Urine Urobilinogen Normal (Normal) mg/dL Ur Leukocyte Esterase Negative (Negative) Urine Microscopic RBC 5-15 H (0-3) per hpf Urine Microscopic WBC 3-5 H (0-3) per hpf Ur Squamous Epith Cells Many H (None-Few) per lpf Urine Bacteria None Seen (None-Few) per hpf Hyaline Casts None Seen (None-Few) per lpf Ur Culture Indicated? NO (NO) - Radiology Data Radiology results reviewed: Yes I reviewed the patient's radiology results. Abdomen/Pelvis CT 08/04/16 18:58 IMPRESSION: 1. No acute findings within the abdomen. 2. No acute findings within the pelvis. 3. Mild mesenteric panniculitis, stable. D/ / 08/04/2016 20:57:52 Rajeev Ireland MD / [facility] Interpreting Provider: Rajeev Ireland MD Abdomen/Pelvis CT 08/04/16 18:58 IMPRESSION: 1. No acute findings within the abdomen. 2. No acute findings within the pelvis. 3. Mild mesenteric panniculitis, stable. D/ / 08/04/2016 20:57:52 Rajeev Ireland MD / [facility] Interpreting Provider: Rajeev Ireland MD
[2016-08-04 20:06] LABS: Basophils # 0.1 K/mcL (0.0-0.2); Basophils % 0.4 %; Eosinophils % 0.1 %; Hematocrit 45.9 % (35.3-44.9); Hemoglobin 16.4 g/dL (11.5-15.4); Immature Granulocytes % 0.3 % (0-4); Lymphocytes # 2.4 K/mcL (0.6-4.6); Lymphocytes % 15.7 %; Mean Corpuscular HGB Conc 35.7 g/dL (31.6-35.5); Mean Corpuscular Hemoglobin 29.7 pg (28.0-33.3); Mean Platelet Volume 10.8 fL (9.4-12.4); Monocytes # 0.8 K/mcL (0.0-1.3); Neutrophils # 12.1 K/mcL (1.6-8.9); Platelet Count 328 K/mcL (140-400); Red Blood Count 5.53 M/mcL (3.82-4.97); Red Cell Distribution Width 12.3 % (11.5-14.5); Segmented Neutrophils % 78.5 %
[2016-08-04] MEDS ORDERED: *HR* Promethazine 25 MG/ML VIAL IVP ONE (20:19)
[2016-08-04 20:24] LABS: BUN/Creatinine Ratio 23 (6-26); Bilirubin,Direct 0.4 mg/dL (0.0-0.5); Blood Urea Nitrogen 19 mg/dL (7-20); Calcium 10.4 mg/dL (8.6-10.8); Carbon Dioxide 24 mEq/L (19-29); Chloride 97 mEq/L (98-109); Glucose 138 mg/dL (70-99); Osmolality,Calculated 286 (280-300); Potassium 2.9 mEq/L (3.5-4.5); Sodium 136 mEq/L (136-145); eGFR For African Americans > 60 (> 60); eGFR For Non-African Americans > 60 (> 60)
[2016-08-04 20:25] LABS: Alanine Aminotransferase 43 Units/L (0-55); Albumin 4.5 g/dL (3.5-5.0); Albumin/Globulin Ratio 1.1 (1.1-2.2); Alkaline Phosphatase 81 Units/L (38-126); Amylase 41 Units/L (25-125); Aspartate Amino Transferase 27 Units/L (5-34); Bilirubin,Indirect 0.6 mg/dL (0.0-1.2); Globulin 4.2 g/dL (2.4-3.5); Lipase 62 Units/L (8-78); Total Protein 8.7 g/dL (6.0-8.3)
[2016-08-04] MEDS: niCARdipine 20 MG/200 ML MLS IVC SCH (20:42)
[2016-08-04 21:45] LABS: Bilirubin,Urine Negative (Negative); Blood,Urine Moderate (Negative); Clarity,Urine Clear (Clear); Color,Urine Yellow (Yellow); Glucose,Urine (UA) Normal (Normal); Ketones,Urine 80 mg/dL (Negative); Leukocyte Esterase,Urine Negative (Negative); Nitrite,Urine Negative (Negative); PH,Urine 6.5 pH Units (5.0-8.0); Protein,Urine 100 mg/dL (Neg-Trace); Specific Gravity,Urine > 1.030 (1.010-1.025); Urobilinogen,Urine Normal (Normal)
[2016-08-04 21:49] LABS: Bacteria,Urine None Seen per hpf (None-Few); Hyaline Casts,Urine None Seen per lpf (None-Few); Squamous Epithelial Cell,Urine Many per lpf (None-Few)
[2016-08-05] MEDS ORDERED: *HR* HYDROmorphone (PF) 1 MG/ML SYRINGE IVP ONE (00:20)
[2016-08-05] MEDS: niCARdipine 20 MG/200 ML MLS IVC SCH ×8 (00:39→17:44)
[2016-08-05] MEDS ORDERED: Potassium Chloride Elixir 20 MEQ/15 ML UDC PO ONE (00:47)
--- NOTE | 2016-08-05 00:47 | Internal Med History&Physical ---
Date of Encounter: 08/05/16 Time of Encounter: 00:38 Assessment and Plan (1) Intractable vomiting with nausea Current visit: Yes Status: Acute this could be related to her uncontrolled BP, Abdominal CT was unremarkable, we will do bowel rest, antiemetics, pain medications, Qualifiers: Vomiting type: unspecified Qualified Code(s): R11.2 - Nausea with vomiting , unspecified (2) Hypertension, accelerated Current visit: Yes Status: Acute patient with a history of induced HTN, later followed by periods of accelerated HTN, now comes in with similar presentation, she denies medication non adherence, she has normal work up for secondary HTN including renal artery studies, serum metanephrines, renin etc, etiology could also be rebound HTN from clonidine, we will admit for control with cardine whilst transitioning her to her home regimen, (3) Leukocytosis Current visit: Yes Status: Acute may be stress related, will follow CBC Qualifiers: Leukocytosis type: bandemia Qualified Code(s): D72.825 - Bandemia (4) Hypokalemia Current visit: Yes Status: Acute from GI loss from her nausea and vomiting and poor intake, we will replace and follow BMP (5) Depression Current visit: Yes Status: Chronic will continue her home medications Qualifiers: Depression Type: major depressive disorder Major depression recurrence: recurrent Active/Remission status: in partial remission Qualified Code(s): F33.41 - Major depressive disorder, recurrent, in partial remission (6) Obesity (BMI 30-39.9) Current visit: Yes Status: Chronic will need counseling Internal Medicine - H&P: HPI Chief complaint: nausea and vomiting Admitted From: Emergency Dept Plans for Post Hospital Care: Home History of present illness: Ms. Stoddard is a 46 year old female with a history of multiple admissions for uncontrolled HTN was brought in for nausea vomiting and uncontrolled BP. Per she was in her usual state of health until about 5 days ago when she began to have nausea and vomiting associated with periods of high BP readings in the 200's for which he was giving her intermittent doses of 0.1mg clonidine in addition to her regular scheduled medications. He denies medication non adherence on her part. Yesterday after giving her about 3 doses of clonidine for her high BP readings her BP dropped to a systolic of 105mmHg and she passed out for about 15 seconds, for this reason this morning he asked her to hold off on taking any of her medications. Her BP was in the 120's systolic and later her BP jumped to the 200's systolic with nausea and vomiting and loose stools so he brought her here for further management. Her usual BP runs in the 140's/90 's. No reported chest pain or dyspnea. Of note she was first diagnosed with HTN during her first about 3 years ago, her BP got so bad that the baby was delivered prematurely and she lost the baby subsequently. Since then she had 2 years of normal BP until recently. Past Med Surg Social Fam HX - Past Medical History Medical history: hypertension, migraine, other Psychiatric history: depression - Past Surgical History Surgical History: , cholecystectomy - Social History Smoking Status: Never smoker Smokeless Tobacco Status: No Alcohol use: occasionally Drug use: none - Family History Father Living Status: Hx Family Cardiac Disorders: Yes Hx Family Cancer: Yes Hx Family Endocrine Disorder: Yes Mother Living Status: Still Living Hx Family Endocrine Disorder: Yes (DM) Internal Medicine - H&P: Meds BuPROPion SR (12 HR) [Wellbutrin SR] 150 mg PO BID 12/07/15 [History] Sertraline [Zoloft] 50 mg PO DAILY 12/07/15 [History] Labetalol HCl 200 mg PO BID 08/04/16 [History] Lisinopril [Zestril] 5 mg PO DAILY 08/04/16 [History] aMILoride [Midamor] 5 mg PO DAILY 08/04/16 [History] Allergies No Known Allergies Allergy (Verified 04/15/16 05:45) All Systems PM: A 10-system review of systems was performed and is negative for pertinent findings except as documented above in the HPI. - Constitutional Vitals: Temp Pulse Resp BP Pulse Ox 97.5 F L 129 22 160/99 97 08/04/16 23:49 08/04/16 23:49 08/04/16 23:49 08/04/16 23:49 08/04/16 23:49 PHYSICAL EXAMINATION: GENERAL: Adult female, lying in bed looking unconformable, face is flushed, Alert, HEENT: NC/AT, EOMI, PERRLA, anicteric sclera, normal conjunctiva, supple, clear nares, dry mucous membranes, RESP: lungs are clear to auscultation bilaterally, good AE bilaterally, No crackles or wheeze CARDIO: Normal hearts sounds; S1 and 2, RRR with no murmurs, no JVD, no ankle edema GI: Soft, full, diffuse mild abdominal tenderness, no organomegaly felt, normal bowel sounds heard MUSCULOSKELETAL: grossly normal movements bilaterally, no deformities noted, no calf tenderness NEUROLOGIC: CN 2-12 intact grossly. No motor/sensory deficit appreciated, PSYCHIATRY: AAO x 3. Mood is fair, SKIN: no skin rash or ulcers noted, face is flushed Internal Med - H&P Results - Labs CBC & Chem 7: 08/04/16 19:46 08/04/16 19:46 - EKG Data -: EKG Interpreted by Myself (non specific ST and TW changes) - Diagnostic Studies CT scan - abdomen Status: image reviewed by me CT scan - head Status: image reviewed by me
[2016-08-05] MEDS ORDERED: Naloxone 0.4 MG/ML INJ IVP PRN (01:02)
[2016-08-05] MEDS: Ondansetron 4 MG/2 ML VIAL IVP PRN ×3 (04:20→20:09)
[2016-08-05] MEDS: *HR* HYDROmorphone (PF) 1 MG/ML SYRINGE IVP PRN ×2 (04:40→20:10)
[2016-08-05 04:52] LABS: Hemoglobin A1C 5.2 %
[2016-08-05 05:25] LABS: BUN/Creatinine Ratio 18 (6-26); Blood Urea Nitrogen 15 mg/dL (7-20); Calcium 9.6 mg/dL (8.6-10.8); Carbon Dioxide 24 mEq/L (19-29); Chloride 97 mEq/L (98-109); Glucose 126 mg/dL (70-99); Magnesium 2.2 mg/dL (1.6-2.6); Osmolality,Calculated 280 (280-300); Phosphorous 3.9 mg/dL (2.3-4.7); Potassium 3.5 mEq/L (3.5-4.5); Sodium 134 mEq/L (136-145); eGFR For African Americans > 60 (> 60); eGFR For Non-African Americans > 60 (> 60)
[2016-08-05] MEDS: *HR* Heparin 5,000 UNIT/ML VIAL SQ SCH ×3 (06:26→20:09)
[2016-08-05] MEDS: BuPROPion SR (12 HR) 150 MG TABLET PO SCH ×2 (09:26→20:09)
[2016-08-05] MEDS: aMILoride 5 MG TABLET PO SCH (09:26)
[2016-08-05] MEDS ORDERED: cloNIDine HCl 0.1 MG TABLET PO SCH (10:00)
--- NOTE | 2016-08-05 12:31 | Event Note ---
Date of Encounter: 08/05/16 Time of Encounter: 10:30 Evaluated patient. Currently awake and alert. No new complaints at this time. Receiving nicardipine infusion to titrated to keep blood pressure less than 160. No chest pain or headache at this time. Patient has been using clonidine as needed to control her blood pressure while she is taking labetalol. This probably caused her to have rebound hypertension which the patient presented with to the ER. Will stop clonidine completely. We will increase dosage of lisinopril to 20 mg. Monitor blood pressure closely and wean off nicardipine drip. Troponin slightly elevated at 0.04 this morning. We will continue to trend. Likely due to demand ischemia and accelerated hypertension.
[2016-08-05] MEDS ORDERED: Lisinopril 20 MG TABLET PO ONE (15:00)
[2016-08-05] MEDS: *HR* Promethazine 25 MG/ML VIAL IVP PRN (18:50)
[2016-08-06] MEDS ORDERED: Mag Hydrox/Al Hydrox/Simeth 30 ML UDC PO PRN ×2 (02:16→02:24)
[2016-08-06] MEDS: *HR* Promethazine 25 MG/ML VIAL IVP PRN (04:02)
[2016-08-06] MEDS: *HR* Heparin 5,000 UNIT/ML VIAL SQ SCH ×3 (05:45→20:22)
[2016-08-06] MEDS: Ondansetron 4 MG/2 ML VIAL IVP PRN ×3 (06:53→23:39)
[2016-08-06] MEDS: *HR* HYDROmorphone (PF) 1 MG/ML SYRINGE IVP PRN (09:35)
[2016-08-06] MEDS: aMILoride 5 MG TABLET PO SCH (09:36)
[2016-08-06] MEDS: BuPROPion SR (12 HR) 150 MG TABLET PO SCH ×2 (09:37→20:21)
[2016-08-06] MEDS ORDERED: *HR* OxyCODONE/APAP 5/325 TABLET PO PRN (10:21)
[2016-08-06 11:00] LABS: BUN/Creatinine Ratio 14 (6-26); Basophils # 0.1 K/mcL (0.0-0.2); Basophils % 0.5 %; Blood Urea Nitrogen 11 mg/dL (7-20); Calcium 9.9 mg/dL (8.6-10.8); Carbon Dioxide 26 mEq/L (19-29); Chloride 95 mEq/L (98-109); Eosinophils # 0.1 K/mcL (0.0-0.6); Eosinophils % 0.4 %; Glucose 117 mg/dL (70-99); Hematocrit 43.8 % (35.3-44.9); Hemoglobin 15.2 g/dL (11.5-15.4); Immature Granulocytes % 0.7 % (0-4); Immature Platelets 5.5 % (1.1-6.1); Lymphocytes # 2.7 K/mcL (0.6-4.6); Lymphocytes % 22.5 %; Mean Corpuscular HGB Conc 34.7 g/dL (31.6-35.5); Mean Corpuscular Hemoglobin 29.5 pg (28.0-33.3); Mean Corpuscular Volume 84.9 fL (83.0-100.0); Mean Platelet Volume 10.8 fL (9.4-12.4); Monocytes % 8.3 %; Osmolality,Calculated 272 (280-300); Platelet Count 273 K/mcL (140-400); Potassium 4.1 mEq/L (3.5-4.5); Red Blood Count 5.16 M/mcL (3.82-4.97); Red Cell Distribution Width 12.4 % (11.5-14.5); Segmented Neutrophils % 67.6 %; Sodium 131 mEq/L (136-145); eGFR For African Americans > 60 (> 60); eGFR For Non-African Americans > 60 (> 60)
--- NOTE | 2016-08-06 13:24 | Discharge Summary ---
Date of Encounter: 08/06/16 Time of Encounter: 13:20 - Discharge Diagnosis (1) Hypertension, accelerated Priority: Primary Status: Acute (2) Intractable vomiting with nausea Priority: Secondary Status: Acute Qualifiers: Vomiting type: unspecified Qualified Code(s): R11.2 - Nausea with vomiting , unspecified (3) Nondiabetic gastroparesis Priority: Secondary Status: Suspected (4) Hypokalemia, gastrointestinal losses Priority: Secondary Status: Acute (5) Depression Priority: Secondary Status: Chronic Qualifiers: Depression Type: major depressive disorder Major depression recurrence: recurrent Active/Remission status: in partial remission Qualified Code(s): F33.41 - Major depressive disorder, recurrent, in partial remission - Discharge Medications Prescriptions: Metoclopramide [Reglan] 5 mg PO Q6HR #250 mls Labetalol HCl 400 mg PO BID #120 tablet Lisinopril [Zestril] 20 mg PO DAILY #30 tablet Home Medications: BuPROPion SR (12 HR) [Wellbutrin SR] 150 mg PO BID 12/07/15 [History] Sertraline [Zoloft] 50 mg PO DAILY 12/07/15 [History] aMILoride [Midamor] 5 mg PO DAILY 08/04/16 [History] Labetalol HCl 400 mg PO BID #120 tablet 08/06/16 [Rx] Lisinopril [Zestril] 20 mg PO DAILY #30 tablet 08/06/16 [Rx] Metoclopramide [Reglan] 5 mg PO Q6HR #250 mls 08/06/16 [Rx] Allergies/Adverse Reactions: Allergies No Known Allergies Allergy (Verified 04/15/16 05:45) Procedures/tests Complete & Pending: Procedures Performed prior 72 hours Category Date Time Status ECG 12 lead ECG [ECG] Routine Y 08/05/16 00:53 Completed Date of admission: 08/05/16 01:29 Primary care physician: Yogesh Luther DO Consults: 08/05/16 09:35 Consult to Director Supply Chain [CONS] Routine Reason for SW Consult: Patient reports recently losing insurance and not able to afford cares Discharging clinician: Jess Bo Anticipated date of discharge: 08/07/16 - Patient Status Disposition: Home, Self-Care Condition: Good Functional capacity at discharge: independent ambulation Overall status at discharge: patient is progressing back to baseline - Discharge Instructions Instructions: Labetalol (By mouth), Lisinopril (By mouth), Metoclopramide (By mouth), Depression (DC), Chronic Hypertension (DC) Follow Up With: Yogesh Luther DO [Primary Care Provider] - (SENT WEB REQUEST ON 08-05-16 @ [phone] ) Chucky Mccallum DO [Resident] - 08/17/16 10:00 am - Diet and Activity Activity: increase activity as tolerated Diet: low fat, low cholesterol, low salt diet Hospital course: Ms. Stoddard is a 46 year old female patient with a history of uncontrolled hypertension presented to the ER with complaints of worsening hypertension along with intractable nausea and vomiting. On presentation to the ER, her blood pressure was 226/133. She was immediately started on intravenous nicardipine drip and hospitalized here. With this medication, her blood pressures start to improve. She was then placed back on her labetalol, Aretha Castanon and lisinopril with improvement in her blood pressure. Patient had been taking clonidine intermittently as needed to control her blood pressure. I believe this was contributing to rebound hypertension and accelerated hypertension. As such, she has been advised to completely stop taking the clonidine. Her intractable nausea and vomiting appears to be related to possible underlying gastroparesis. We will treat her with Reglan symptomatically. She can follow up further with her primary care provider. She may also be having some viral gastroenteritis as she did have episodes of diarrhea while she was here. Presently she is clinically stable for discharge and will be discharged on labetalol 400 mg twice daily and lisinopril 20 mg by mouth daily along with amiloride 5 mg by mouth daily for her hypertension. - Time Spent with Patient Total time spent providing and/or coordinating discharge services: Less than 30 minutes (25 min) - Constitutional Vitals: Temp Pulse Resp BP Pulse Ox 98.3 F 75 16 136/84 98 08/06/16 11:16 08/06/16 11:16 08/06/16 11:16 08/06/16 11:16 08/06/16 11:16 General appearance: Present: cooperative, A&O X 3, obese, answers questions appropriately - Respiratory Respiratory exam: Present: CTAB. Absent: accessory muscle use, rales, rhonchi, wheezes - Cardiovascular Cardiovascular exam: Present: RRR, +S1, +S2. Absent: diastolic murmur, gallop, rubs, systolic murmur - GI/Abdominal GI/Abdominal exam: Present: normal bowel sounds, soft, no peritoneal signs. Absent: distended, tenderness - VTE Documentation of Mechanical Device: Intermittent pneumatic compression device - Attending Attestation This document has been at least partially created by [employer] recognition technology by Dr. Bo. Errors in grammar, wording or other phrases may exist. If errors are found after the documentation is signed, they will be addressed individually in the addendum section of this document when appropriate.
--- NOTE | 2016-08-06 16:13 | Electrocardiograph Report ---
[address] [address] Test Date: 2016-08-05 Pat Name: Yara Stoddard Department: 110 Room: 07 Gender: F Documentation Nurse: EVI : 1970 Requested By: Jess Bo Order Number: [id number] Reading MD: Martha Bingham Measurements Intervals [place] Rate: 130 P: 57 IL: 137 QRS: 10 QRSD: 87 T: 40 QT: 316 QTc: 393 Interpretive Statements SINUS TACHYCARDIA MODERATE ST DEPRESSION Electronically Signed On 08-06-2016 16:11:24 EDT by Martha Bingham
[2016-08-06] MEDS: Metoclopramide 10 MG/2 ML VIAL IVP SCH ×3 (16:43→23:39)
[2016-08-07] MEDS: Metoclopramide 10 MG/2 ML VIAL IVP SCH (06:08)
[2016-08-07] MEDS: *HR* Heparin 5,000 UNIT/ML VIAL SQ SCH (06:09)
[2016-08-07 07:56] VITALS: BP 175/98
[2016-08-07] MEDS ORDERED: Lisinopril 20 MG TABLET PO SCH (09:00)
[2016-08-07] MEDS: BuPROPion SR (12 HR) 150 MG TABLET PO SCH (10:43)
[2016-08-07] MEDS: aMILoride 5 MG TABLET PO SCH (10:43)
--- NOTE | 2016-08-07 11:56 | Internal Med Progress Note ---
Date of Encounter: 08/07/16 Time of Encounter: 10:00 - Assessment and plan (1) Hypertension, accelerated Status: Acute Assessment and plan: Improved. Continue lisinopril 20 mg daily and labetalol 400 mg twice a day along with amiloride. (2) Intractable vomiting with nausea Status: Resolved Assessment and plan: Likely from gastroparesis. On Reglan Qualifiers: Vomiting type: unspecified Qualified Code(s): R11.2 - Nausea with vomiting , unspecified (3) Nondiabetic gastroparesis Status: Suspected Assessment and plan: Continue Reglan (4) Hypokalemia, gastrointestinal losses Status: Resolved (5) Depression Status: Chronic Assessment and plan: Continue Wellbutrin and Zoloft Qualifiers: Depression Type: major depressive disorder Major depression recurrence: recurrent Active/Remission status: in partial remission Qualified Code(s): F33.41 - Major depressive disorder, recurrent, in partial remission - Subjective Interval history: Patient is feeling much better today. Nausea has significantly improved. Blood pressure results much better. She was discharged yesterday but discharge was held as her nausea had worsened and her blood pressure was also worsening. - Constitutional Vitals: Temp Pulse Resp BP Pulse Ox 97.9 F 72 19 175/98 97 08/07/16 07:51 08/07/16 10:35 08/07/16 07:51 08/07/16 07:51 08/07/16 07:51 General appearance: Present: cooperative, A&O X 3, obese, answers questions appropriately - Respiratory Respiratory exam: Present: CTAB. Absent: accessory muscle use, rales, rhonchi, wheezes - Cardiovascular Cardiovascular exam: Present: RRR, +S1, +S2. Absent: diastolic murmur, gallop, rubs, systolic murmur - GI/Abdominal GI/Abdominal exam: Present: normal bowel sounds, soft, no peritoneal signs. Absent: distended, tenderness Internal Medicine: Result - Labs CBC & Chem 7: 08/06/16 10:38 08/06/16 10:38 - VTE Documentation of Mechanical Device: Intermittent pneumatic compression device Consult Discharge Plan - Plan Instructions: Labetalol (By mouth), Lisinopril (By mouth), Metoclopramide (By mouth), Depression (DC), Chronic Hypertension (DC) Referrals: Yogesh Luther DO [Primary Care Provider] - (SENT WEB REQUEST ON 08-05-16 @ [id number] ) Chucky Mccallum DO [Resident] - 08/17/16 10:00 am Prescriptions: Metoclopramide [Reglan] 5 mg PO Q6HR #250 mls Labetalol HCl 400 mg PO BID #120 tablet Lisinopril [Zestril] 20 mg PO DAILY #30 tablet - Attending Attestation This document has been at least partially created by [employer] recognition technology by Dr. Bo. Errors in grammar, wording or other phrases may exist. If errors are found after the documentation is signed, they will be addressed individually in the addendum section of this document when appropriate.
== END 2016-08-07 11:40 | disposition home or self-care (01) | DRG 199 ==
LOC: 2NNU 18:53 → EMEROO 18:53 → 2NNU 23:56
PROVIDERS: ADMIT Internal Medicine; ATTEND Internal Medicine

== ENCOUNTER 2018-10-04 11:23 | Inpatient (IN) ==
[2018-10-04] MEDS ORDERED: 0.9 % Sodium Chloride 1,000 ML IVC ONE (12:08)
[2018-10-04] MEDS ORDERED: *HR* Promethazine 25 MG/ML VIAL IVP ONE ×2 (12:11→13:33)
--- NOTE | 2018-10-04 12:13 | Emergency Department Note ---
Disposition Clinical Impression: Nausea & vomiting Qualifiers: Vomiting type: unspecified Vomiting Intractability: non-intractable Qualified Code(s): R11.2 - Nausea with vomiting, unspecified Diarrhea Qualifiers: Diarrhea type: unspecified type Qualified Code(s): R19.7 - Diarrhea, unspecified Hypertension Qualifiers: Hypertension type: unspecified Qualified Code(s): I10 - Essential (primary) hypertension Disposition: Home, Self-Care Condition: Good Instructions: Acute Nausea and Vomiting (ED), Hypertension (ED) Reasons to Return/Additional Instructions: Follow-up with the doctor golf professional/the doctor available through the physician referral line at the end the week. Call Tuesday morning for an appointment. Also follow-up with Dr. Gibbs from GI as you have seen him in the past and be able to call in the morning to make an appointment to be seen within the next one or 2 weeks for further evaluation of vomiting and diarrhea. Return with any headache, numbness of extremities, confusion, chest pain, shortness of breath or any other concern. Continue to take your blood pressure medication as prescribed Referrals: Viraj Ulloa CNP [Primary Care Provider] - Forms: ED Satisfaction Letter Time of Disposition: 19:20 General Adult HPI - General Chief complaint: ED Nausea/Vomiting/Diarrhea Stated complaint: Vomiting x2days Time Seen by Provider: 10/04/18 11:39 Source: patient Limitations: no limitations Nursing Notes Reviewed: Yes Vital Signs Reviewed: Yes - History of Present Illness HPI Narrative: She has had 3 years of intermittent vomiting and diarrhea and has had according to the patient a extensive evaluation with no clear etiology found I did review her previous record when she was here for hypokalemia about one week ago and she presents today with nausea which started 2 days ago and then vomiting and diarrhea which started yesterday, intermittent, about 5 episodes of each, does have associated lightheadedness. She denies any pain in the head, neck, chest, abdomen or back. No blood in the urine or stool. Does have a history of hypertension and did take her medication today and did keep it down for about one hour before she had recurrent vomiting. Social history: No smoking or alcohol. She is here with her mother. Pain Scale: 0 - Related Data Home Medications Medication Instructions Recorded Confirmed Lisinopril 25 mg PO DAILY 10/04/18 10/04/18 Wellbutrin 150 mg pe PO BID 10/04/18 10/04/18 Zoloft 25 mg PO BID 10/04/18 10/04/18 Allergies Allergy/AdvReac Type Severity Reaction Status Date / Time No Known Allergies Allergy Verified 04/15/16 05:45 All systems ED: reviewed and negative except as stated. Past Medical History - Past Medical History Medical history: Reports: hypertension, migraine, other Surgical history: Reports: , cholecystectomy Psychiatric history: Reports: depression [employer]ACHUTE OFFICER history: Reports: no [employer]ACHUTE OFFICER history - Social History Smoking Status: Never smoker Smokeless Tobacco Status: No Alcohol use: Reports: occasionally Drug use: Reports: none Physical Exam CONSTITUTIONAL: Alert and oriented X3, well-nourished, well appearing, in no apparent distress HEAD: Normocephalic; atraumatic. EYES: PERRL, no scleral icterus. NOSE: The nose is normal in appearance without rhinorrhea RESP: Normal chest excursion with respiration; breath sounds clear and equal bilaterally; no wheezes, rhonchi, or rales CARD: Regular rhythm, without murmurs, rub or gallop ABD: Non-distended; non-tender, soft,without rigidity, rebound or guarding SKIN: Normal for age and race; warm and dry; no apparent lesions - General Limitations: no limitations General appearance: alert Course Vital Signs Pulse Rate 85 10/04/18 11:25 Respiratory Rate 18 10/04/18 11:25 Blood Pressure 195/134 10/04/18 11:25 O2 Sat by Pulse Oximetry 98 10/04/18 11:25 Temperature 97.6 F 10/04/18 12:19 Pulse Rate 98 10/04/18 21:37 Respiratory Rate 15 10/04/18 21:37 Blood Pressure 213/124 10/04/18 21:37 O2 Sat by Pulse Oximetry 98 10/04/18 21:37 Oxygen Delivery Oxygen Delivery Room Air Medical Decision Making - MDM Narrative Medical decision making narrative: No active vomiting at this time, she is breathing comfortably, color is good, labs are ordered including potassium level. Also IV Phenergan and IV Benadryl are ordered and 1 L IV fluid. Results pending 1213 I did reassess the patient. Blood pressure still significantly elevated and I did add on a thyroid study as well as troponin and these results are pending. The patient does not have any chest pain or other signs of acute coronary syndrome. I did also write for lisinopril 20 mg. I did speak with the nurse and they will check a manual check of the blood pressure. She is not vomiting since receiving antiemetics but still did have nausea so she received a second dose of IV Phenergan. 1443 She is still having some vomiting despite the medication and I did figure out that it was helpful that she received last time so I will give her 2 mg today as she is requesting this medicine but was not able to remember the name of. I will also give her 8 of Zofran. Her blood pressure will be reassessed after an as the lisinopril 20 mg once a time to work and then a decision on disposition will be made. 1655 Patient was concerned about hypokalemia but the potassium level is normal. The blood pressure is elevated 192/110 but is at the point that this should be able to be safely further evaluated as well as managed as an outpatient and I will have her follow-up with the doctor golf professional through the physician referral line towards the end of the week as well she should follow up with Dr. Gibbs for GI. She states she has had a endoscopy as well as a swallowing study in the past but these were done a number of years ago so this can be further reassessed as an outpatient. Her vomiting has stopped. The blood pressure can be managed as an outpatient and she will be discharged at this time. She is comfortable with this approach. 1918 The patient was ready to be discharged based on the filling out the paperwork however then she started vomiting again. She is also since developed a headache. I did speak with the hospitalist to accept the patient for admission but would like a head CT to be done first so this test has been ordered and is pending [address] is negative for acute pathology. The patient will be admitted to the hospital. I will notify the hospitalist. 2235 - Medical Records Medical records reviewed: Yes I reviewed the patient's medical records. - Lab Data Lab results reviewed: Yes I reviewed the patient's lab results. Result diagrams: 10/04/18 12:22 10/04/18 12:22 Lab Results 10/04/18 10/04/18 Range/Units 12:22 12:22 WBC 10.4 (4.3-11.1) K/mcL RBC 4.97 (3.82-4.97) M/mcL Hgb 14.6 (11.5-15.4) g/dL Hct 43.6 (35.3-44.9) % MCV 87.7 (83.0-100.0) fL MCH 29.4 (28.0-33.3) pg MCHC 33.5 (31.6-35.5) g/dL RDW 14.6 H (11.5-14.5) % Plt Count 254 (140-400) K/mcL MPV 10.3 (9.4-12.4) fL Sodium 135 L (136-145) mEq/L Potassium 4.0 (3.5-5.1) mEq/L Chloride 100 (98-107) mEq/L Carbon Dioxide 24 (23-29) mEq/L BUN 7 (6-20) mg/dL Creatinine 0.72 (0.60-1.20) mg/dL Est GFR ( Amer) > 60 (> 60) Est GFR (Non-Af Amer) > 60 (> 60) BUN/Creatinine Ratio 10 (6-26) Glucose 221 H (70-105) mg/dL Calculated Osmolality 285 (280-300) Calcium 10.4 H (8.6-10.3) mg/dL Total Bilirubin 1.2 H (0.3-1.0) mg/dL Direct Bilirubin 0.2 (0.0-0.2) mg/dL Indirect Bilirubin 1.0 (0.0-1.2) mg/dL AST 57 H (13-39) Units/L ALT 144 H (7-52) Units/L Alkaline Phosphatase 93 (34-104) Units/L Troponin I < 0.03 (< 0.04) ng/mL Serum Total Protein 7.7 (6.4-8.9) g/dL Albumin 4.5 (3.5-5.7) g/dL Globulin 3.2 (2.4-3.5) g/dL Albumin/Globulin Ratio 1.4 (1.1-2.2) Lipase 64 (11-82) Units/L TSH 0.993 (0.340-5.600) mcIU/mL Free T4 1.38 (0.70-2.00) ng/dl - Radiology Data Radiology results reviewed: Yes I reviewed the patient's radiology results.
[2018-10-04 12:34] LABS: Hematocrit 43.6 % (35.3-44.9); Hemoglobin 14.6 g/dL (11.5-15.4); Mean Corpuscular HGB Conc 33.5 g/dL (31.6-35.5); Mean Corpuscular Hemoglobin 29.4 pg (28.0-33.3); Mean Corpuscular Volume 87.7 fL (83.0-100.0); Mean Platelet Volume 10.3 fL (9.4-12.4); Platelet Count 254 K/mcL (140-400); Red Blood Count 4.97 M/mcL (3.82-4.97); Red Cell Distribution Width 14.6 % (11.5-14.5); White Blood Count 10.4 K/mcL (4.3-11.1)
[2018-10-04 12:54] LABS: Alanine Aminotransferase 144 Units/L (7-52); Albumin 4.5 g/dL (3.5-5.7); Albumin/Globulin Ratio 1.4 (1.1-2.2); Alkaline Phosphatase 93 Units/L (34-104); Aspartate Amino Transferase 57 Units/L (13-39); BUN/Creatinine Ratio 10 (6-26); Bilirubin,Direct 0.2 mg/dL (0.0-0.2); Bilirubin,Total 1.2 mg/dL (0.3-1.0); Blood Urea Nitrogen 7 mg/dL (6-20); Calcium 10.4 mg/dL (8.6-10.3); Carbon Dioxide 24 mEq/L (23-29); Chloride 100 mEq/L (98-107); Globulin 3.2 g/dL (2.4-3.5); Glucose 221 mg/dL (70-105); Lipase 64 Units/L (11-82); Osmolality,Calculated 285 (280-300); Sodium 135 mEq/L (136-145); Total Protein 7.7 g/dL (6.4-8.9); eGFR For African Americans > 60 (> 60); eGFR For Non-African Americans > 60 (> 60)
[2018-10-04 14:10] LABS: Troponin I < 0.03 ng/mL (< 0.04)
[2018-10-04 14:24] LABS: Thyroid Stimulating Hormone 0.993 mcIU/mL (0.340-5.600)
[2018-10-04] MEDS ORDERED: Lisinopril 20 MG TABLET PO STA (14:42)
[2018-10-04] MEDS ORDERED: Ondansetron 4 MG/2 ML VIAL IVP ONE (16:50)
[2018-10-04] MEDS ORDERED: Haloperidol Lactate 5 MG/ML VIAL IVP ONE (16:50)
[2018-10-04] MEDS ORDERED: Morphine Sulfate 2 MG/ML SYRINGE IVP ONE (21:05)
[2018-10-04] MEDS ORDERED: Naloxone 0.4 MG/ML INJ IVP PRN (23:10)
--- NOTE | 2018-10-04 23:29 | Internal Med History&Physical ---
<Avel Taylor - Last Filed: 10/05/18 00:42> Date of Encounter: 10/05/18 Time of Encounter: 23:16 Internal Medicine - H&P: HPI Chief complaint: nausea, vomiting Admitted From: Emergency Dept Plans for Post Hospital Care: Home History of present illness: Ms. Stoddard is a 48 year old female with past medical history of migraines, chronic nausea and vomiting presents emergency department with complaint of intractable nausea and vomiting 2 days. Patient states that ever since for child, approximately 5 years ago, she has struggled with chronic nausea with vomiting. Patient states that approximately 2-3 times per year she has episodes of inability to tolerate oral intake for weeks at a time. She has been unable to keep anything down orally. Nausea is constant but is exacerbated with oral intake food and liquid. She has tried multiple medications in the past including Zofran pump during , Phenergan rectally, warm baths. She does admit to some mild epigastric abdominal pain associated with her vomiting. She had one episode of loose bowel movements yesterday. She does admit to occasional flushing when this comes on however shortly resolves. She also admits to chronic anxiety and a high stress job, she works at the [employer]. She does admit to occasional marijuana use and was told to take warm baths in the past, however patient states that her blood pressure goes up with this. She also admits to approximately 20 pound weight loss in the past 2 weeks. Of note, she was recently admitted 2 weeks ago with the same complaint. She was evaluated by GI who did order MRCP/liver US which showed fatty liver without obstruction. She was discharged 09/21 with no medication changes. She followed up with a EMERGENCY ROOM TECHNICIAN last who did restart her previous home meds of zoloft, lis inopril, and wellbutrin which she restarted tuesday. Patient has had multiple workups prior to this visit including gastric emptying study in 2017 which was within normal limits. She has also had an EGD in 2016 was also within normal limits. Surgical pathology shows chemical gastropathy. Patient states that she has had associated hypertensive urgency during these episodes with a max systolic blood pressure in the 240s. She was evaluated by nephrology in 2017 who recommended labetalol, lisinopril with clonidine PRN. She does not current take labetalol ias she lost her insurance coverage and has been on no medications. She is also seen by neurology for chronic migraines with associated nausea and was prescribed topiramate scheduled with sumatriptan when necessary. Upon presentation to the ED, vital signs were significant for a blood pressure 195/134. This was trended and peaked at 213/130. She was given haldol 2mg, lisinopril 20 mg, benadryl 25 mg, 8 mg morphine, 8mg zofran, 25 mg phenergren. At time of my interview, patient's nausea has resolved. She previously had a headache when her BP was high and this has resolved as well. BP is currently 137/91. Past medical history: As above, hypertension Past surgical history: Cholecystectomy, Social history: Denies tobacco use, rare alcohol use, admits to marijuana use. Family history: Patient denies Past Med Surg Social Fam HX - Past Medical History Medical history: hypertension, migraine, other Additional medical history: past hx of nausea,vomitting,diarrhea. Psychiatric history: depression - Past Surgical History Surgical History: , cholecystectomy Additional surgical history: back and wrist surgeries - Social History Smoking Status: Never smoker Smokeless Tobacco Status: No Alcohol use: occasionally Drug use: none - Family History Father Living Status: Hx Family Cardiac Disorders: Yes Hx Family Cancer: Yes Hx Family Endocrine Disorder: Yes Mother Living Status: Still Living Hx Family Endocrine Disorder: Yes (DM) Internal Medicine - H&P: Meds Lisinopril/Hydrochlorothiazide [Zestoretic 20-25 mg Tablet] 1 tab PO DAILY 10/04/18 [History] Sertraline [Zoloft] 50 mg PO DAILY 10/04/18 [History] buPROPion HCl [Zyban] 150 mg PO BID 10/04/18 [History] Allergy/AdvReac Type Severity Reaction Status Date / Time No Known Allergies Allergy Verified 10/04/18 22:44 All Systems PM: A 10-system review of systems was performed and is negative for pertinent findings except as documented above in the HPI. Review of systems: - Constitutional: Denies fevers, chills, generalized fatigue - Head/Neck: Denies REGALADO, neck stiffness - EENT: Denies vision changes/blurriness, tinnitus, auditory changes, rhinorrhea, congestion, sore throat, dysphagia - CVS: Denies chest pain, palpitations, ULRICH, orthopnea, edema, PND, - Pulm: Denies SOB, cough, sputum, hematemesis, wheezing - GI: Admits to nausea, vomiting. Denies abdominal pain, anorexia, diarrhea, constipation, melena - : Denies dysuria, increased frequency, urgency, hematuria, - MSK: Denies joint pain, limited ROM - Skin: Denies rashes, ulcers, color changes, - Neuro: Denies REGALADO, paresthesias, focal deficits, ataxia - Constitutional Vitals: Temp Pulse Resp BP Pulse Ox 97.6 F 83 16 137/72 98 10/04/18 12:19 10/04/18 22:42 10/04/18 22:42 10/04/18 22:42 10/04/18 22:42 Exam: Gen.: Vitals noted. No acute distress. AAOx3, resting comfortably in bed. Obese. HEENT: PERRL/EOMI, oropharynx clear, Normocephalic, atraumatic, MMM Cardiac: RRR, no murmur, +S1/S2, No BLE edema Pulmonary: CTA bilaterally, no wheezes, rales or rhonchi, equal chest expansion, unlabored breathing Abdomen: soft, minimally tender, most prominent in the epigastric region., BS noted, no guarding, no palpable HSM Skin: warm and dry, no visible lesions. MSK: ROM intact, no joint swelling noted, gait no assessed while in bed. Non tender calf or clubbing Neuro: A&Ox3, moves all extremities, no focal deficits, sensation intact, Psych: Appropriate mood and behavior, AOx3 Internal Med - H&P Results - Labs CBC & Chem 7: 10/05/18 00:19 10/04/18 12:22 Labs: Short CBC 10/04/18 Range/Units 12:22 WBC 10.4 (4.3-11.1) K/mcL Hgb 14.6 (11.5-15.4) g/dL Hct 43.6 (35.3-44.9) % Plt Count 254 (140-400) K/mcL BMP 10/04/18 12:22 Sodium 135 L Potassium 4.0 Chloride 100 Carbon Dioxide 24 BUN 7 Creatinine 0.72 Glucose 221 H Calcium 10.4 H Cardiac Enzymes 10/04/18 Range/Units 12:22 Troponin I < 0.03 (< 0.04) ng/mL Liver Function 10/04/18 Range/Units 12:22 Total Bilirubin 1.2 H (0.3-1.0) mg/dL Direct Bilirubin 0.2 (0.0-0.2) mg/dL AST 57 H (13-39) Units/L ALT 144 H (7-52) Units/L Alkaline Phosphatase 93 (34-104) Units/L Albumin 4.5 (3.5-5.7) g/dL - Impressions ITS Impressions Head CT 10/04/18 20:46 IMPRESSION: No acute intracranial abnormality. D/ / Tani Grier MD / Tani Grier MD Interpreting Provider: Tani Grier MD - Assessment and Plan (1) Intractable vomiting with nausea Current Visit: Yes Status: Acute Assessment and plan: - Suspect that this is anxiety related at this time. - Alernatively, may be related to marijuana vs migraine vs GERD - Workup previously by GI shows fatty liver but otherwise wnl abdominal US and MRCP - Cyclical in nature, exacerbated by oral intake but also present if NPO - Patient admits to some MJ use but infrequently. - Labs are improved from previous and grossly unremarkable - LFTs are mildly elevated which is stable from previous. Workup from GI at last visit suggests fatty liver - Previous workup in 2017 showed normal gastric emptying study, EGD with chemical gastritis - Given Haldol, morphine, benadryl, phenegren in ED with improvement of symptoms. Plan - Given patient's previous qtc of 498 at last admission, will avoid qt prolonging agents as able - Will give trial of capsacin cream with ativan for symptom control - Will also start protonix IV for suspected GERD/gastritis - Patient may benefit from resuming labetalol for both BP and anxiety as well as clonidine per previous nephro recommendations - Patient also complaining of irregular menstrual cycles. Will order Upreg, PTH. Consider further pending results - As I cannot see if EGD was performed at last admit, will reconsult GI Qualifiers: Vomiting type: unspecified Qualified Code(s): R11.2 - Nausea with vomiting, unspecified (2) Hypertension Current Visit: Yes Status: Chronic Assessment and plan: - Elevated on presentation with high of with peak of 213 systolic - Currently improved to 137/91 after nausea and vomiting have improved. - Patient previously on labetalol for both migraine prophylaxis and blood pressure - Will consider propanolol or metoprolol for both BP and migraine prophylaxis - Will monitor and add PRN hydralazine if needed. Qualifiers: Hypertension type: unspecified Qualified Code(s): I10 - Essential (primary) hypertension (3) Abnormal EKG Current Visit: Yes Status: Acute Assessment and plan: Noted Qtc prolongation in 490s at last visit EKG ordered. will avoid qtc prolonging meds (4) Elevated LFTs Current Visit: Yes Status: Chronic Assessment and plan: mildly elevated LFTs possibly related to fatty liver GI did workup at last visit- shows fatty liver Secondary workup unremarkable (AFP, alpha-1, ceruloplasmin, gladis, rheum, hepatitis) (5) Anxiety Current Visit: Yes Status: Chronic Assessment and plan: - Patient anxious on exam and does struggle with chronic anxiety - Suspect that this may be related to vomiting - recently restarted on zoloft and wellbutrin. - Add PRN ativan, will consult psychiatry (6) Depression Current Visit: Yes Status: Chronic Assessment and plan: chronic home meds recently restarted Qualifiers: Depression Type: major depressive disorder Major depression recurrence: recurrent Active/Remission status: in partial remission Qualified Code(s): F33.41 - Major depressive disorder, recurrent, in partial remission (7) Morbid obesity with BMI of 40.0-44.9, adult Current Visit: Yes Status: Chronic Assessment and plan: chronic issue reports weight loss (8) Hypertensive urgency Current Visit: Yes Status: Resolved Assessment and plan: resolved, as above. (9) DVT prophylaxis Current Visit: Yes Status: Acute Assessment and plan: subcutaneous heparin - Time Spent With Patient Total time spent is greater than 50% in coordination of care (as documented) at patient's floor/unit and/or counseling patient: <Jesus Duggan - Last Filed: 10/05/18 05:11> Date of Encounter: 10/05/18 Time of Encounter: 01:55 - Constitutional Vitals: Temp Pulse Resp BP Pulse Ox 97.7 F 118 20 175/121 98 10/05/18 04:26 10/05/18 04:26 10/05/18 04:26 10/05/18 04:26 10/05/18 04:26 General appearance: Present: cooperative, A&O X 3, pleasant, answers questions appropriately Exam: moderately anxious, tearful, nervous - Head Head exam: Present: atraumatic, normal inspection - Eye Eye exam: Present: EOMI, PERRL. Absent: scleral icterus Pupils: Present: normal accommodation - ENT ENT exam: Present: mucous membranes dry, normal exam, normal oropharynx - Neck Neck exam general surgery: Present: full ROM, supple, trachea midline. Absent: tenderness, nuchal rigidity, thyromegaly - Respiratory Respiratory exam: Present: CTAB. Absent: chest wall tenderness, rales, rhonchi, wheezes - Cardiovascular Cardiovascular exam: Present: distant heart sounds, +S1, +S2. Absent: diastolic murmur, systolic murmur - GI/Abdominal GI/Abdominal exam: Present: normal bowel sounds, soft. Absent: guarding, hepatomegaly, mass, rebound, splenomegaly, tenderness - Extremities Exam Extremities exam: Present: full ROM, normal capillary refill, warm, radial pulses palpable and symmetrical. Absent: calf tenderness, pedal edema, tenderness - Back Exam Back exam: Absent: CVA tenderness (L), CVA tenderness (R) - Neurological Exam Neurological exam: Present: alert, CN II-XII intact, oriented X3, no focal deficits, strengths equal and symetr throughout - Psychiatric Psychiatric exam: Present: normal affect, normal mood - Skin Skin exam: Present: dry, intact, warm Internal Med - H&P Results - Labs CBC & Chem 7: 10/05/18 00:19 10/05/18 00:19 Labs: Short CBC 10/04/18 10/05/18 Range/Units 12:22 00:19 WBC 10.4 15.8 H D (4.3-11.1) K/mcL Hgb 14.6 15.4 (11.5-15.4) g/dL Hct 43.6 46.0 H (35.3-44.9) % Plt Count 254 300 (140-400) K/mcL Neutrophils # 13.6 H (1.6-8.9) K/mcL BMP 10/04/18 10/05/18 12:22 00:19 Sodium 135 L 136 Potassium 4.0 3.9 Chloride 100 99 Carbon Dioxide 24 24 BUN 7 8 Creatinine 0.72 0.75 Glucose 221 H 121 H Calcium 10.4 H 10.4 H Cardiac Enzymes 10/04/18 Range/Units 12:22 Troponin I < 0.03 (< 0.04) ng/mL Liver Function 10/04/18 Range/Units 12:22 Total Bilirubin 1.2 H (0.3-1.0) mg/dL Direct Bilirubin 0.2 (0.0-0.2) mg/dL AST 57 H (13-39) Units/L ALT 144 H (7-52) Units/L Alkaline Phosphatase 93 (34-104) Units/L Albumin 4.5 (3.5-5.7) g/dL - Impressions ITS Impressions Head CT 10/04/18 20:46 IMPRESSION: No acute intracranial abnormality. D/ / Tani Grier MD / Tani Grier MD Interpreting Provider: Tani Grier MD - Diagnostic Studies CT scan - head Status: image reviewed by me - Time Spent With Patient Total time spent is greater than 50% in coordination of care (as documented) at patient's floor/unit and/or counseling patient: - Attending Attestation I discussed the patient TUSCARORA, past medical history, review of systems, lab data, imaging data, and exam findings with Dr. Taylor. I then saw and examined patient independently as well. She underwent CT of the head per my request after discussing case with the ER. She had intractable nausea, vomiting, and uncontrolled hypertension. CT of the head was negative and I reviewed the im ages myself as well. After assessing patient and discussing with her, I agree with Dr. Taylor's assessment that this is likely anxiety and/or PTSD related from having a miscarriage several years ago. She does have frequent GI issues with protracted nausea and vomiting. I agree with the GI consultation and likely EGD to rule out any GI source of her symptoms. If this is negative, then I would recommend psychiatry consultation to which she is agreeable and actually requests as well. Other than my comments above and documented exam findings, I agree with Dr. Taylor's assessment and plan.
[2018-10-05] MEDS: *HR* LORazepam 2 MG/ML VIAL IVP PRN (00:34)
[2018-10-05 00:35] LABS: Basophils % 0.3 %; Hemoglobin 15.4 g/dL (11.5-15.4); Immature Granulocytes % 0.4 % (0-4); Lymphocytes # 1.3 K/mcL (0.6-4.6); Lymphocytes % 8.2 %; Mean Corpuscular HGB Conc 33.5 g/dL (31.6-35.5); Mean Corpuscular Volume 86.6 fL (83.0-100.0); Mean Platelet Volume 10.2 fL (9.4-12.4); Monocytes # 0.8 K/mcL (0.0-1.3); Monocytes % 5.2 %; Neutrophils # 13.6 K/mcL (1.6-8.9); Platelet Count 300 K/mcL (140-400); Red Blood Count 5.31 M/mcL (3.82-4.97); Red Cell Distribution Width 14.6 % (11.5-14.5); Segmented Neutrophils % 85.9 %
[2018-10-05 00:38] LABS: Basophils # 0.1 K/mcL (0.0-0.2); White Blood Count 15.8 K/mcL (4.3-11.1)
[2018-10-05 00:54] LABS: BUN/Creatinine Ratio 11 (6-26); Blood Urea Nitrogen 8 mg/dL (6-20); Calcium 10.4 mg/dL (8.6-10.3); Carbon Dioxide 24 mEq/L (23-29); Chloride 99 mEq/L (98-107); Glucose 121 mg/dL (70-105); Magnesium 1.7 mg/dL (1.6-2.6); Osmolality,Calculated 282 (280-300); Potassium 3.9 mEq/L (3.5-5.1); Sodium 136 mEq/L (136-145); eGFR For African Americans > 60 (> 60); eGFR For Non-African Americans > 60 (> 60)
[2018-10-05 04:05] LABS: Amphetamine Screen,Urine Negative ng/mL (Cutoff=1000); Barbiturate Screen,Urine Negative ng/mL (Cutoff=200); Benzodiazepines Screen,Urine Negative ng/mL (Cutoff=200); Cannabinoid Screen,Urine Positive ng/mL (Cutoff = 50); Cocaine Screen,Urine Negative ng/mL (Cutoff= 300); Opiate Screen,Urine Positive ng/mL (Cutoff=300); Phencyclidine Screen,Urine Negative ng/mL (Cutoff=25)
[2018-10-05] MEDS: Acetaminophen 325 MG TABLET PO PRN ×2 (04:24→11:32)
[2018-10-05] MEDS: Pantoprazole 40 MG VIAL IVP SCH ×2 (06:08→17:27)
[2018-10-05] MEDS: *HR* Heparin 5,000 UNIT/ML VIAL SQ SCH ×2 (06:08→17:27)
[2018-10-05 06:30] LABS: Bilirubin,Urine Small (Negative); Blood,Urine Trace (Negative); Clarity,Urine Cloudy (Clear); Color,Urine Yellow (Yellow); Glucose,Urine (UA) 100 mg/dL (Normal); Ketones,Urine 80 mg/dL (Negative); Leukocyte Esterase,Urine Negative (Negative); Nitrite,Urine Negative (Negative); PH,Urine 5.5 pH Units (5.0-8.0); Protein,Urine 100 mg/dL (Neg-Trace); Specific Gravity,Urine > 1.030 (1.010-1.025); Urobilinogen,Urine Normal (Normal)
[2018-10-05 06:33] LABS: Bacteria,Urine Few per hpf (None-Few); Hyaline Casts,Urine Few per lpf (None-Few); Squamous Epithelial Cell,Urine Many per lpf (None-Few)
[2018-10-05] MEDS ORDERED: Capsaicin 0.025% 60 GM TUBE TP PRN (10:07)
--- NOTE | 2018-10-05 10:57 | Gastroenterology Consult Note ---
<Gill Gutierrez - Last Filed: 10/05/18 10:54> Date of Encounter: 10/05/18 Time of Encounter: 09:15 - Assessment and plan (1) Intractable vomiting with nausea Current Visit: Yes Status: Acute Assessment and plan: 48 showed female with long history of nausea and vomiting. She does have history of marijuana use was advised to abstain completely. She had workup in 2016 which was negative. We will proceed with EGD today. Would recommend she be On PPI discharge will follow up in the office. Qualifiers: Vomiting type: unspecified Qualified Code(s): R11.2 - Nausea with vomiting, unspecified - Time Spent With Patient Total time spent is greater than 50% in coordination of care (as documented) at patient's floor/unit and/or counseling patient: GI History of Present Illness - Data of Consult Patient: known to practice within the last 3 years Consult date: 10/05/18 Requesting Physician: Jesus Duggan MD - Consult Narrative Reason for consult: nausea and vomiting History of present illness: Ms. Stoddard is a 48 year old female with PMHx of migraines, chronic nausea and vomiting. Sheo presented to the ED with complaint of intractable nausea and vomiting 2 days. Patient states that ever since for child, approximately 5 years ago, she has struggled with chronic nausea with vomiting. Nausea is constant but is exacerbated with oral intake food and liquid. She has tried multiple medications in the past including Zofran pump during , Phenergan rectally, warm baths. She does admit to some mild epigastric abdominal pain associated with her vomiting. She completed gastric emptying study 12/25/2015 which was normal. EGD 2016 with chemical gastropathy. We had planned for EUS as outpatient in 2016, but patient did not follow up due to "losing her insurance". CT A/P with abnormalities but did show esophageal mural thickening and fatty liver. LFTs elevated on admission with TB 1.5, AST 6, ALT 296. She does admit to occasional marijuana use, which has been ongoing for "years". She states she has cut way back on her marijuana use. She was seen in the hospital earlier this month, EGD was planned, but the patient had resolution of nausea and therefore was discharged home. Procedures: EGD 12/10/2015 Dr. Tian: Chemical gastropathy. NSAIDs: None Anticoagulation: None Past Med Surg Social Fam HX - Past Medical History Medical history: hypertension, migraine, other Additional medical history: past hx of nausea,vomitting,diarrhea. Psychiatric history: depression - Past Surgical History Surgical History: , cholecystectomy Additional surgical history: back and wrist surgeries - Social History Smoking Status: Never smoker Smokeless Tobacco Status: No Alcohol use: occasionally Drug use: none - Family History Father Living Status: Hx Family Cardiac Disorders: Yes Hx Family Cancer: Yes Hx Family Endocrine Disorder: Yes Mother Living Status: Still Living Hx Family Endocrine Disorder: Yes (DM) Review of Systems: GI: as per [id number] GENERAL: denies fever, has some chills EYES: denies yellow discoloration ENT: denies pain with swallowing or difficulty swallowing CARDIO: denies chest pain, palpitations RESP: No Shortness of breath with exertion : denies change in color of urine NEURO: denies any weakness HEME: Denies any bruising MS: denies joint pain, joint swelling or back pain. DERM: denies rash or itching PSYCH: history of anxiety and depression - Constitutional Vitals: Temp Pulse Resp BP Pulse Ox 98.2 F 102 16 121/79 98 10/05/18 06:47 10/05/18 06:47 10/05/18 06:47 10/05/18 06:47 10/05/18 06:47 Exam: CONSTITUTIONAL:alert, no acute distress.HEAD:normocephalic.EYES:no jaundice.NECK:no obvious swelling.HEART:regular rate and rhythm, no murmurs.LUNGS:bilateral good air entry.ABDOMEN:non distended, soft, tender epigastric area, no masses palpable, no organomegaly.RECTAL EXAM:Deferred.EXTREMITIES:no clubbing, cyanosis or edema.SKIN:no stigmata of chronic liver disease.NEUROLOGIC:no obvious focal defect Results - Labs CBC & Chem 7: 10/05/18 00:19 10/05/18 00:19 Labs: Last Result 10/05/18 10/05/18 00:19 03:45 Calcium 10.4 H Urine Opiates Screen Positive H Entire Visit 10/05/18 00:19 Hgb 15.4 Hct 46.0 H - Impressions Impressions Head CT 10/04/18 20:46 IMPRESSION: No acute intracranial abnormality. D/ / Tani Grier MD / Tani Grier MD Interpreting Provider: Tani Grier MD Consult Discharge Plan - Plan Referrals: Viraj Ulloa, [facility] [Primary Care Provider] - <Jayson Gibbs - Last Filed: 10/05/18 17:19> Date of Encounter: 10/05/18 Time of Encounter: 14:00 - Time Spent With Patient Total time spent is greater than 50% in coordination of care (as documented) at patient's floor/unit and/or counseling patient: GI History of Present Illness - Data of Consult Requesting Physician: Jesus Duggan MD - Consult Narrative History of present illness: Ms. Stoddard is a 48 year old female - Constitutional Vitals: Temp Pulse Resp BP Pulse Ox 98.9 F 79 18 136/90 98 10/05/18 17:09 10/05/18 17:09 10/05/18 17:09 10/05/18 17:09 10/05/18 17:09 Results - Labs CBC & Chem 7: 10/05/18 00:19 10/05/18 00:19 - Impressions Impressions Head CT 10/04/18 20:46 IMPRESSION: No acute intracranial abnormality. D/ / Tani Grier MD / Tani Grier MD Interpreting Provider: Tani Grier MD - Attending Attestation I have personally performed a face to face evaluation on this patient. I have reviewed and agree with the care plan. History and Exam by me shows: Pt with a long-standing history of for cyclic vomiting syndrome now admitted tw ice in the last 1 month now. On examination: Alert and awake not in distress abdomen is benign assessment: Patient with cyclic vomiting syndrome flare but rule out other etiology for symptom. Recommendation: EGD today. Patient advised against marijuana. #2 family history of colon cancer and she will be scheduled for colonoscopy as an outpatient
--- NOTE | 2018-10-05 11:58 | Event Note ---
Date of Encounter: 10/05/18 Time of Encounter: 11:57 Patient doing better this morning. Nausea or vomiting improved after she received morphine intravenously in the ER yesterday evening. Patient placed on diet as tolerated today. Consulted GI to evaluate and see if patient would benefit from an EGD. Keep nothing by mouth after midnight tonight. Continue PPI.
[2018-10-05] MEDS ORDERED: *HR* Midazolam HCl 5 MG/5 ML VIAL IVP ONE (16:54)
[2018-10-05] MEDS ORDERED: *HR* FentaNYL (PF) 100 MCG/2 ML VIAL ONE (16:54)
[2018-10-05] MEDS: *HR* Midazolam HCl 5 MG/5 ML VIAL IVP ONE ×2 (17:15→17:21)
[2018-10-05] MEDS ORDERED: Simethicone 40 MG/0.6 ML MLS IR ONE (17:20)
[2018-10-05] MEDS ORDERED: *HR* FentaNYL (PF) 100 MCG/2 ML VIAL IVP ONE (17:20)
--- NOTE | 2018-10-05 17:21 | Pre-Sedation Evaluation ---
Pre-sedation evaluation - Pre-sedation checklist Date of procedure: 10/05/18 Procedure: egd Recent Vitals: Last Vital Signs Temp 98.9 F 10/05/18 17:09 Pulse 86 10/05/18 17:15 Resp 18 10/05/18 17:15 BP 153/100 10/05/18 17:15 Pulse Ox 96 10/05/18 17:15 H&P (including ROS) documented in medical record: Yes Previous reaction to sedatives/anesthetics: No Dietary Status: No solid food in preceding 4 hrs and no liquid in preceding 2 hrs Dentition: No loose teeth or bridges ASA Classification *see protocol: CLASS II-Mild systemic disease Plan of Care: Pt appropriate candidate for procedure/moderate/conscious sedation, Risks/benefits of procedure/sedation discussed w/ patient/family
[2018-10-06] MEDS: Pantoprazole 40 MG VIAL IVP SCH ×2 (06:23→18:05)
[2018-10-06] MEDS: *HR* Heparin 5,000 UNIT/ML VIAL SQ SCH ×2 (06:23→18:05)
[2018-10-06] MEDS: *HR* LORazepam 2 MG/ML VIAL IVP PRN (08:44)
[2018-10-06 09:26] LABS: Basophils # 0.1 K/mcL (0.0-0.2); Basophils % 0.7 %; Eosinophils # 0.1 K/mcL (0.0-0.6); Eosinophils % 0.7 %; Hematocrit 45.2 % (35.3-44.9); Hemoglobin 15.1 g/dL (11.5-15.4); Immature Granulocytes % 0.4 % (0-4); Lymphocytes # 2.2 K/mcL (0.6-4.6); Lymphocytes % 26.4 %; Mean Corpuscular HGB Conc 33.4 g/dL (31.6-35.5); Mean Corpuscular Hemoglobin 28.8 pg (28.0-33.3); Mean Corpuscular Volume 86.3 fL (83.0-100.0); Mean Platelet Volume 10.3 fL (9.4-12.4); Monocytes # 0.6 K/mcL (0.0-1.3); Monocytes % 7.7 %; Neutrophils # 5.3 K/mcL (1.6-8.9); Platelet Count 276 K/mcL (140-400); Red Blood Count 5.24 M/mcL (3.82-4.97); Red Cell Distribution Width 14.7 % (11.5-14.5); Segmented Neutrophils % 64.1 %; White Blood Count 8.3 K/mcL (4.3-11.1)
[2018-10-06] MEDS: *HR* Promethazine 25 MG/ML VIAL IVP PRN ×2 (09:40→16:39)
[2018-10-06] MEDS ORDERED: *HR* Metoprolol 5 MG/5 ML VIAL IVP ONE (10:12)
[2018-10-06] MEDS: Sucralfate 1 GM TABLET PO SCH ×2 (10:56→16:33)
[2018-10-06] MEDS ORDERED: *HR* Labetalol 20 MG/4 ML SYRINGE IVP PRN (11:48)
--- NOTE | 2018-10-06 12:16 | Internal Med Progress Note ---
Hospitalist Progress Note - Encounter Date of Encounter: 10/06/18 Time of Encounter: 12:12 - Subjective Interval History: Evaluated patient earlier today. Was complaining of persistent nausea. She was also very hypertensive. Underwent EGD yesterday. Tolerated procedure well and was doing well after procedure till she ate breakfast this morning. Was able to keep her food down but then began to develop nausea. No headache or chest pain. No blurred vision. - Exam Vitals: Temp Pulse Resp BP Pulse Ox 97.8 F 85 18 188/109 96 10/06/18 11:34 10/06/18 11:34 10/06/18 11:34 10/06/18 11:34 10/06/18 11:34 Exam: General: Patient is alert, no acute distress, oriented x 3, morbidly obese Respiratory: Good respiratory effort. Normal breath sounds. No wheezing or crackles. Cardiovascular: Regular rate and rhythm. s1 and s2 normal No clicks, rubs, gallops, or murmurs. No pedal edema Abdomen: Abdomen is soft, nontender. Bowel sounds are present Musculoskeletal: Spontaneously moving all extremities Skin: warm, dry, intact. Neuro: Alert oriented x 3 normal cranial nerves, no focal deficits - Assessment and Plan (1) Hypertensive urgency Current Visit: Yes Status: Acute (2) Esophagitis Current Visit: Yes Status: Acute (3) Gastritis Current Visit: Yes Status: Acute (4) Anxiety Current Visit: Yes Status: Chronic (5) Depression Current Visit: Yes Status: Chronic (6) Fatty liver Current Visit: Yes Status: Acute DVT Prophylaxis: With subcutaneous heparin - Summary of Assessment and Plan Summary of Assessment and Plan: Hypertensive urgency: Patient's blood pressure is severely elevated this morning. It remains persistently high despite receiving intravenous hydralazine and Lopressor. Patient had vomited her pills that she took this morning for hypertension. We will place her on carvedilol. Continue to monitor blood pressure closely if remains persistently high, she may need to be started on nicardipine drip. Esophagitis and gastritis without acute bleeding: Patient underwent EGD yesterday which showed moderately severe esophagitis and gastritis. Patient on twice daily PPI and Carafate. Anxiety and depression: Continue Zoloft and Wellbutrin. Patient also placed on Ativan as needed but will decrease dosage. High risk for complications due to hypertensive urgency. - Time Spent with Patient Total time spent is greater than 50% in coordination of care (as documented) at patient's floor/unit and/or counseling patient: Internal Medicine: Result - Labs CBC & Chem 7: 10/06/18 09:06 10/05/18 00:19 Labs: Short CBC 10/06/18 Range/Units 09:06 WBC 8.3 (4.3-11.1) K/mcL Hgb 15.1 (11.5-15.4) g/dL Hct 45.2 H (35.3-44.9) % Plt Count 276 (140-400) K/mcL Neutrophils # 5.3 (1.6-8.9) K/mcL Consult Discharge Plan - Plan Referrals: Viraj Ulloa CNP [Primary Care Provider] - (3) Gastritis Qualifiers: Gastritis type: other gastritis Chronicity: acute Gastritis bleeding: without bleeding Qualified Code(s): K29.00 - Acute gastritis without bleeding (5) Depression Qualifiers: Depression Type: unspecified Qualified Code(s): F32.9 - Major depressive disorder, single episode, unspecified
[2018-10-06] MEDS: niCARdipine 20 MG in 0.9 % Sodium Chloride 192 ML IVC SCH ×2 (16:33→20:45)
[2018-10-06] MEDS: Acetaminophen 325 MG TABLET PO PRN (19:58)
[2018-10-07] MEDS: *HR* Heparin 5,000 UNIT/ML VIAL SQ SCH (05:59)
[2018-10-07] MEDS: Pantoprazole 40 MG VIAL IVP SCH (05:59)
[2018-10-07 07:03] VITALS: BP 139/67
[2018-10-07] MEDS: Sucralfate 1 GM TABLET PO SCH (08:40)
[2018-10-07] MEDS: niCARdipine 20 MG in 0.9 % Sodium Chloride 192 ML IVC SCH (08:41)
--- NOTE | 2018-10-07 11:25 | Discharge Summary ---
- NOTES TO OUTPATIENT PROVIDER Notes to Outpatient Provider: Patient will follow up with GI for biopsy results from EGD. Orders not resulted at time of discharge: Pending orders 10/05/18 17:27 Surgical Pathology [PTH] Routine Date of Encounter: 10/07/18 Time of Encounter: 11:23 - Discharge Diagnosis (1) Hypertensive urgency Priority: Primary Status: Acute (2) Esophagitis Priority: Secondary Status: Acute (3) Gastritis Priority: Secondary Status: Acute Qualifiers: Gastritis type: other gastritis Chronicity: acute Gastritis bleeding: without bleeding Qualified Code(s): K29.00 - Acute gastritis without bleeding (4) Anxiety Priority: Secondary Status: Chronic (5) Depression Priority: Secondary Status: Chronic Qualifiers: Depression Type: unspecified Qualified Code(s): F32.9 - Major depressive disorder, single episode, unspecified (6) Fatty liver Priority: Secondary Status: Acute Hospital course: Ms. Stoddard is a 48 year old female patient with a history of migraines, anxiety and depression, episodes of nausea and vomiting was hospitalized here with intractable nausea and vomiting. She also had hypertensive urgency on presentation but this improved in the ER. She was evaluated by GI and underwent upper GI endoscopy which showed moderately severe esophagitis and gastritis. Patient has been placed on PPI and Carafate. She developed hypertensive urgency yesterday and required a nicardipine drip. Nicardipine been drip has now been stopped and patient is tolerating oral medications with good control of her blood pressure. She has been placed on carvedilol in addition to hydrochlorothiazide and lisinopril that she takes at home. Patient will be discharged home today. She will follow up with GI for further management of her esophagitis and gastritis. Discharge discussed with: patient - Time Spent with Patient Total time spent providing and/or coordinating discharge services: Time spent: Greater than 30 minutes (32 min) - Discharge Medications Prescriptions: New Carvedilol [Coreg] 6.25 mg PO BIDWM #60 tablet Pantoprazole Sodium [Protonix] 40 mg PO BID #60 tablet. Sucralfate [Carafate] 1 gm PO TIDAC #90 tablet Continued Sertraline [Zoloft] 50 mg PO DAILY buPROPion HCl [Zyban] 150 mg PO BID Lisinopril/Hydrochlorothiazide [Zestoretic 20-25 mg Tablet] 1 tab PO DAILY Home Medications: Lisinopril/Hydrochlorothiazide [Zestoretic 20-25 mg Tablet] 1 tab PO DAILY 10/04/18 [History] Sertraline [Zoloft] 50 mg PO DAILY 10/04/18 [History] buPROPion HCl [Zyban] 150 mg PO BID 10/04/18 [History] Carvedilol [Coreg] 6.25 mg PO BIDWM #60 tablet 10/07/18 [Rx] Pantoprazole Sodium [Protonix] 40 mg PO BID #60 tablet. 10/07/18 [Rx] Sucralfate [Carafate] 1 gm PO TIDAC #90 tablet 10/07/18 [Rx] Allergies/Adverse Reactions: Allergy/AdvReac Type Severity Reaction Status Date / Time No Known Allergies Allergy Verified 10/04/18 22:44 Date of admission: 10/06/18 18:29 Primary care physician: Viraj Ulloa CNP Consults: 10/05/18 00:33 Consult to Gastroenterology [CONS] Routine Consulting Provider: Gastroenterology Terri Reason for Consult: nausea/vomiting, recent admission. Call Completed: No Discharging clinician: Jess Bo Anticipated date of discharge: 10/07/18 - Constitutional Vitals: Temp Pulse Resp BP Pulse Ox 98.0 F 84 22 139/67 96 10/07/18 06:49 10/07/18 07:02 10/07/18 06:06 10/07/18 07:02 10/07/18 06:06 General appearance: Present: cooperative, A&O X 3, pleasant, answers questions appropriately Exam: General: Patient is alert, no acute distress, oriented x 3, morbidly obese Respiratory: Good respiratory effort. Normal breath sounds. No wheezing or crackles. Cardiovascular: Regular rate and rhythm. s1 and s2 normal No clicks, rubs, gallops, or murmurs. No pedal edema Abdomen: Abdomen is soft, nontender. Bowel sounds are present Musculoskeletal: Spontaneously moving all extremities Skin: warm, dry, intact. Neuro: Alert oriented x 3 normal cranial nerves, no focal deficits - Patient Status Disposition: Home, Self-Care Condition: Good Functional capacity at discharge: independent ambulation Overall status at discharge: patient is back to baseline - Discharge Instructions Instructions: Hypertensive Crisis (DC) Follow Up With: Viraj Ulloa CNP [Primary Care Provider] - (In 1 week) Jayson Gibbs MD [Partnered Physician] - (In 1 week) - Diet and Activity Diet: low fat, low cholesterol, low salt diet, other ([place] diet)
== END 2018-10-07 12:38 | disposition home or self-care (01) | DRG 392 ==
LOC: 2ANU 11:23 → EMEROOARM 11:23 → 2ANU 23:50 → 2NNU 10-06 16:40 → SUATTDRO 10-06 18:29 → ICNU 10-06 22:19
PROVIDERS: ADMIT Pediatrics; ATTEND Internal Medicine
PROC: ENDOEBX (2018-10-05 17:30)

== ENCOUNTER 2018-10-08 13:15 | Inpatient (IN) ==
--- NOTE | 2018-10-08 13:31 | Emergency Department Note ---
Disposition Clinical Impression: Fatty liver Hypertension Qualifiers: Hypertension type: unspecified Qualified Code(s): I10 - Essential (primary) hypertension Gastritis Qualifiers: Gastritis type: unspecified gastritis Chronicity: acute Gastritis bleeding: without bleeding Qualified Code(s): K29.00 - Acute gastritis without bleeding Intractable vomiting Qualifiers: Vomiting type: cyclical vomiting Nausea presence: with nausea Qualified Code(s): G43.A1 - Cyclical vomiting, intractable Disposition: Admitted As Inpatient Condition: Good Time of Disposition: 15:46 General Adult HPI - General Chief complaint: ED Nausea/Vomiting/Diarrhea Stated complaint: Vomitting Time Seen by Provider: 10/08/18 13:17 Source: patient Limitations: no limitations Nursing Notes Reviewed: Yes Vital Signs Reviewed: Yes - History of Present Illness HPI Narrative: 48 year old female presents emergency department with concern for vomiting. Patient has had issues with vomiting in the past and had a previous admission for what she was discharged yesterday for vomiting as well as requiring hypertensive control. Patient states that she has been vomiting up all of her meds. She denies any fevers, admits to nausea, vomiting. She does endorse some bilateral flank pain, but states that this has been present the past. She denies any dysuria, urinary infection, urgency.. Pain Scale: 8 - Related Data Home Medications Medication Instructions Recorded Confirmed Lisinopril/Hydrochlorothiazide 1 tab PO DAILY 10/04/18 10/08/18 [Zestoretic 20-25 mg Tablet] Sertraline [Zoloft] 50 mg PO DAILY 10/04/18 10/08/18 buPROPion HCl [Zyban] 150 mg PO BID 10/04/18 10/08/18 Previous Rx's Medication Instructions Recorded Carvedilol [Coreg] 6.25 mg PO BIDWM #60 tablet 10/07/18 Pantoprazole Sodium [Protonix] 40 mg PO BID #60 tablet. 10/07/18 Sucralfate [Carafate] 1 gm PO TIDAC #90 tablet 10/07/18 Allergies Allergy/AdvReac Type Severity Reaction Status Date / Time No Known Allergies Allergy Verified 10/04/18 22:44 All systems ED: reviewed and negative except as stated. Review of Systems: As Per HPI Constitutional: Denies: fever Cardiovascular: Denies: chest pain Respiratory: Denies: cough, dyspnea Gastrointestinal: Reports: nausea, vomiting. Denies: abdominal pain, diarrhea Musculoskeletal: Denies: neck pain Integumentary: Denies: rash Neurological: Denies: headache, weakness, numbness, paresthesias Past Medical History - Past Medical History Attestation: Yes The following information was validated with the patient. 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 Absent: respiratory distress, accessory muscle use - Cardiovascular Cardiovascular exam: Present: normal rhythm, tachycardia, normal heart sounds - Abdominal Exam Abdominal exam: Present: soft, Non-Tender. Absent: distention, guarding, rebound, rigidity - Extremities Exam Extremities exam: Present: normal capillary refill - Back Exam Back exam: Absent: CVA tenderness (R), CVA tenderness (L) - Neurological Exam Neurological exam: Present: alert, oriented X3, CN II-XII intact, other (GCS 15) - Psychiatric Psychiatric exam: Present: anxious - Skin Skin exam: Present: warm, dry, intact, normal color. Absent: rash Course Vital Signs Temperature 97.4 F L 10/08/18 13:15 Pulse Rate 101 10/08/18 13:15 Respiratory Rate 18 10/08/18 13:15 Blood Pressure 200/154 10/08/18 13:15 O2 Sat by Pulse Oximetry 98 10/08/18 13:15 Temperature 98.6 F 10/09/18 00:29 Pulse Rate 90 10/09/18 00:29 Respiratory Rate 17 10/09/18 00:29 Blood Pressure 150/82 10/09/18 00:29 O2 Sat by Pulse Oximetry 95 10/09/18 00:29 Oxygen Delivery Oxygen Delivery Room Air Medical Decision Making - MDM Narrative Medical decision making narrative: For essential female presents emergency department with concern for vomiting and elevated blood pressure. Patient is alert and oriented, no focal neurologic deficits to suspect stroke. Kidney function normal, ECG not reveal any ischemic changes. Troponin negative. Patient had persistent blood pressure elevations despite controlling some aspects of her vomiting through multiple medications. We started nicardipine drip. Results were explained to family as we performed a dissection study that was negative for any acute abnormality. Did have an incidental finding of fatty liver which patient knows about. Patient admitted to the hospitalist for further management of her vomiting and hypertension. Chest X-Ray 10/08/18 13:32 IMPRESSION: No acute findings D/ / Nichole Davila MD / Nichole Davila MD Interpreting Provider: Nichole Davila MD Dissection 10/08/18 13:47 IMPRESSION: No acute findings to the chest, abdomen or pelvis. No evidence for aortic aneurysm or dissection. Mild diffuse fatty infiltration of the liver. D/ / 10/08/2018 15:50:18 Jama Joy MD / [facility] Interpreting Provider: Jama Joy MD - Lab Data Result diagrams: 10/08/18 13:50 10/08/18 13:50 Lab Results 10/08/18 10/08/18 10/08/18 Range/Units 13:50 13:50 14:30 WBC 12.3 H (4.3-11.1) K/mcL RBC 5.86 H (3.82-4.97) M/mcL Hgb 16.9 H D (11.5-15.4) g/dL Hct 49.6 H (35.3-44.9) % MCV 84.6 (83.0-100.0) fL MCH 28.8 (28.0-33.3) pg MCHC 34.1 (31.6-35.5) g/dL RDW 14.1 (11.5-14.5) % Plt Count 354 (140-400) K/mcL MPV 10.6 (9.4-12.4) fL Immature Gran % 0.3 (0-4) % Seg Neutrophils % 78.7 % Lymphocytes % 15.3 % Monocytes % 5.0 % Eosinophils % 0.2 % Basophils % 0.5 % Neutrophils # 9.7 H (1.6-8.9) K/mcL Lymphocytes # 1.9 (0.6-4.6) K/mcL Monocytes # 0.6 (0.0-1.3) K/mcL Eosinophils # 0.0 (0.0-0.6) K/mcL Basophils # 0.1 (0.0-0.2) K/mcL Sodium 132 L (136-145) mEq/L Potassium 3.4 L (3.5-5.1) mEq/L Chloride 94 L (98-107) mEq/L Carbon Dioxide 19 L (23-29) mEq/L BUN 23 H (6-20) mg/dL Creatinine 1.12 (0.60-1.20) mg/dL Est GFR ( Amer) > 60 (> 60) Est GFR (Non-Af Amer) 52 L (> 60) BUN/Creatinine Ratio 21 (6-26) Glucose 173 H (70-105) mg/dL Calculated Osmolality 282 (280-300) Calcium 10.9 H (8.6-10.3) mg/dL Magnesium 2.0 (1.6-2.6) mg/dL Total Bilirubin 1.3 H (0.3-1.0) mg/dL AST 28 (13-39) Units/L ALT 67 H (7-52) Units/L Alkaline Phosphatase 98 (34-104) Units/L Troponin I < 0.03 (< 0.04) ng/mL Serum Total Protein 8.6 (6.4-8.9) g/dL Albumin 4.9 (3.5-5.7) g/dL Globulin 3.7 H (2.4-3.5) g/dL Albumin/Globulin Ratio 1.3 (1.1-2.2) Lipase 66 (11-82) Units/L Beta-Hydroxybutyric Acd (0.02-0.27) mmol/L Serum , Qual (Negative) Urine Color Dark Yellow (Yellow) Urine Clarity Turbid A (Clear) Urine pH 5.5 (5.0-8.0) pH Units Ur Specific [place] 1.030 H (1.010-1.025) Urine Protein 100 H (Neg-Trace) mg/dL Urine Glucose (UA) 100 H (Normal) mg/dL Urine Ketones >=160 H (Negative) mg/dL Urine Blood Negative (Negative) Urine Nitrite Negative (Negative) Urine Bilirubin Small H (Negative) Urine Urobilinogen Normal (Normal) mg/dL Ur Leukocyte Esterase Negative (Negative) Urine Microscopic RBC 3-5 H (0-3) per hpf Urine Microscopic WBC 5-15 H (0-3) per hpf Ur Squamous Epith Cells Many H (None-Few) per lpf Urine Bacteria Many H (None-Few) per hpf Ur Culture Indicated? YES A (NO) 10/08/18 10/08/18 Range/Units 14:37 14:37 WBC (4.3-11.1) K/mcL RBC (3.82-4.97) M/mcL Hgb (11.5-15.4) g/dL Hct (35.3-44.9) % MCV (83.0-100.0) fL MCH (28.0-33.3) pg MCHC (31.6-35.5) g/dL RDW (11.5-14.5) % Plt Count (140-400) K/mcL MPV (9.4-12.4) fL Immature Gran % (0-4) % Seg Neutrophils % % Lymphocytes % % Monocytes % % Eosinophils % % Basophils % % Neutrophils # (1.6-8.9) K/mcL Lymphocytes # (0.6-4.6) K/mcL Monocytes # (0.0-1.3) K/mcL Eosinophils # (0.0-0.6) K/mcL Basophils # (0.0-0.2) K/mcL Sodium (136-145) mEq/L Potassium (3.5-5.1) mEq/L Chloride (98-107) mEq/L Carbon Dioxide (23-29) mEq/L BUN (6-20) mg/dL Creatinine (0.60-1.20) mg/dL Est GFR ( Amer) (> 60) Est GFR (Non-Af Amer) (> 60) BUN/Creatinine Ratio (6-26) Glucose (70-105) mg/dL Calculated Osmolality (280-300) Calcium (8.6-10.3) mg/dL Magnesium (1.6-2.6) mg/dL Total Bilirubin (0.3-1.0) mg/dL AST (13-39) Units/L ALT (7-52) Units/L Alkaline Phosphatase (34-104) Units/L Troponin I (< 0.04) ng/mL Serum Total Protein (6.4-8.9) g/dL Albumin (3.5-5.7) g/dL Globulin (2.4-3.5) g/dL Albumin/Globulin Ratio (1.1-2.2) Lipase (11-82) Units/L Beta-Hydroxybutyric Acd > 2.00 H (0.02-0.27) mmol/L Serum , Qual Negative (Negative) Urine Color (Yellow) Urine Clarity (Clear) Urine pH (5.0-8.0) pH Units Ur Specific [place] (1.010-1.025) Urine Protein (Neg-Trace) mg/dL Urine Glucose (UA) (Normal) mg/dL Urine Ketones (Negative) mg/dL Urine Blood (Negative) Urine Nitrite (Negative) Urine Bilirubin (Negative) Urine Urobilinogen (Normal) mg/dL Ur Leukocyte Esterase (Negative) Urine Microscopic RBC (0-3) per hpf Urine Microscopic WBC (0-3) per hpf Ur Squamous Epith Cells (None-Few) per lpf Urine Bacteria (None-Few) per hpf Ur Culture Indicated? (NO) - EKG Data EKG #1 EKG attestation: Yes I reviewed and interpreted this EKG. EKG results narrative: 1419 Heart rate 70 bpm, P1 129 ms, QRS duration 96.6, QT 393 ms, normal axis. Sinus rhythm with no ischemic ST changes.
[2018-10-08] MEDS ORDERED: Isovue-370 500 ML BOTTLE IVP ONE (13:47)
[2018-10-08] MEDS ORDERED: Morphine Sulfate 2 MG/ML SYRINGE IVP STA (13:48)
[2018-10-08] MEDS ORDERED: Ondansetron 4 MG/2 ML VIAL IVP ONE (13:49)
[2018-10-08] MEDS ORDERED: 0.9 % Sodium Chloride 1,000 ML IVC ONE (13:50)
[2018-10-08 14:03] LABS: Basophils # 0.1 K/mcL (0.0-0.2); Basophils % 0.5 %; Eosinophils % 0.2 %; Hematocrit 49.6 % (35.3-44.9); Hemoglobin 16.9 g/dL (11.5-15.4); Immature Granulocytes % 0.3 % (0-4); Lymphocytes # 1.9 K/mcL (0.6-4.6); Lymphocytes % 15.3 %; Mean Corpuscular HGB Conc 34.1 g/dL (31.6-35.5); Mean Corpuscular Hemoglobin 28.8 pg (28.0-33.3); Mean Corpuscular Volume 84.6 fL (83.0-100.0); Mean Platelet Volume 10.6 fL (9.4-12.4); Monocytes # 0.6 K/mcL (0.0-1.3); Neutrophils # 9.7 K/mcL (1.6-8.9); Platelet Count 354 K/mcL (140-400); Red Blood Count 5.86 M/mcL (3.82-4.97); Red Cell Distribution Width 14.1 % (11.5-14.5); Segmented Neutrophils % 78.7 %; White Blood Count 12.3 K/mcL (4.3-11.1)
[2018-10-08 14:24] LABS: Alanine Aminotransferase 67 Units/L (7-52); Albumin 4.9 g/dL (3.5-5.7); Albumin/Globulin Ratio 1.3 (1.1-2.2); Alkaline Phosphatase 98 Units/L (34-104); Aspartate Amino Transferase 28 Units/L (13-39); BUN/Creatinine Ratio 21 (6-26); Bilirubin,Total 1.3 mg/dL (0.3-1.0); Blood Urea Nitrogen 23 mg/dL (6-20); Calcium 10.9 mg/dL (8.6-10.3); Carbon Dioxide 19 mEq/L (23-29); Chloride 94 mEq/L (98-107); Globulin 3.7 g/dL (2.4-3.5); Glucose 173 mg/dL (70-105); Lipase 66 Units/L (11-82); Osmolality,Calculated 282 (280-300); Potassium 3.4 mEq/L (3.5-5.1); Sodium 132 mEq/L (136-145); Total Protein 8.6 g/dL (6.4-8.9); Troponin I < 0.03 ng/mL (< 0.04); eGFR For African Americans > 60 (> 60); eGFR For Non-African Americans 52 (> 60)
[2018-10-08] MEDS ORDERED: Capsaicin 0.025% 60 GM TUBE TP STA (14:37)
[2018-10-08] MEDS ORDERED: Haloperidol Lactate 5 MG/ML VIAL IVP ONE (14:37)
[2018-10-08 14:56] LABS: Bilirubin,Urine Small (Negative); Blood,Urine Negative (Negative); Clarity,Urine Turbid (Clear); Color,Urine Dark Yellow (Yellow); Glucose,Urine (UA) 100 mg/dL (Normal); Ketones,Urine >=160 mg/dL (Negative); Leukocyte Esterase,Urine Negative (Negative); Nitrite,Urine Negative (Negative); PH,Urine 5.5 pH Units (5.0-8.0); Protein,Urine 100 mg/dL (Neg-Trace); Urobilinogen,Urine Normal (Normal)
[2018-10-08 14:57] LABS: Bacteria,Urine Many per hpf (None-Few); Squamous Epithelial Cell,Urine Many per lpf (None-Few)
--- NOTE | 2018-10-08 15:14 | Emergency Department Note ---
Disposition Clinical Impression: Hypertension Qualifiers: Hypertension type: unspecified Qualified Code(s): I10 - Essential (primary) hypertension Gastritis Qualifiers: Gastritis type: unspecified gastritis Chronicity: acute Gastritis bleeding: without bleeding Qualified Code(s): K29.00 - Acute gastritis without bleeding Intractable vomiting Qualifiers: Vomiting type: cyclical vomiting Nausea presence: with nausea Qualified Code(s): G43.A1 - Cyclical vomiting, intractable Disposition: Admitted As Inpatient Condition: Good Referrals: Viraj Ulloa CNP [Primary Care Provider] - Forms: ED Satisfaction Letter Time of Disposition: 15:15 General Adult HPI - General Chief complaint: ED Nausea/Vomiting/Diarrhea Stated complaint: Vomitting Time Seen by Provider: 10/08/18 13:17 Source: patient Limitations: no limitations - History of Present Illness Pain Scale: 8 - Related Data Home Medications Medication Instructions Recorded Confirmed Lisinopril/Hydrochlorothiazide 1 tab PO DAILY 10/04/18 10/04/18 [Zestoretic 20-25 mg Tablet] Sertraline [Zoloft] 50 mg PO DAILY 10/04/18 10/04/18 buPROPion HCl [Zyban] 150 mg PO BID 10/04/18 10/04/18 Previous Rx's Medication Instructions Recorded Carvedilol [Coreg] 6.25 mg PO BIDWM #60 tablet 10/07/18 Pantoprazole Sodium [Protonix] 40 mg PO BID #60 tablet. 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 EDGE STRIPPER history - Social History Smoking Status: Never smoker Smokeless Tobacco Status: No Alcohol use: Reports: none Drug use: Reports: none Physical Exam - General Limitations: no limitations General appearance: alert Course Vital Signs Temperature 97.4 F L 10/08/18 13:15 Pulse Rate 101 10/08/18 13:15 Respiratory Rate 18 10/08/18 13:15 Blood Pressure 200/154 10/08/18 13:15 O2 Sat by Pulse Oximetry 98 10/08/18 13:15 Temperature 97.4 F L 10/08/18 13:15 Pulse Rate 98 10/08/18 14:43 Respiratory Rate 13 10/08/18 14:43 Blood Pressure 169/128 10/08/18 14:43 O2 Sat by Pulse Oximetry 97 10/08/18 14:43 Oxygen Delivery Oxygen Delivery Room Air Medical Decision Making - Lab Data Result diagrams: 10/08/18 13:50 10/08/18 13:50 Lab Results 10/08/18 10/08/18 10/08/18 Range/Units 13:50 13:50 14:37 WBC 12.3 H (4.3-11.1) K/mcL RBC 5.86 H (3.82-4.97) M/mcL Hgb 16.9 H D (11.5-15.4) g/dL Hct 49.6 H (35.3-44.9) % MCV 84.6 (83.0-100.0) fL MCH 28.8 (28.0-33.3) pg MCHC 34.1 (31.6-35.5) g/dL RDW 14.1 (11.5-14.5) % Plt Count 354 (140-400) K/mcL MPV 10.6 (9.4-12.4) fL Immature Gran % 0.3 (0-4) % Seg Neutrophils % 78.7 % Lymphocytes % 15.3 % Monocytes % 5.0 % Eosinophils % 0.2 % Basophils % 0.5 % Neutrophils # 9.7 H (1.6-8.9) K/mcL Lymphocytes # 1.9 (0.6-4.6) K/mcL Monocytes # 0.6 (0.0-1.3) K/mcL Eosinophils # 0.0 (0.0-0.6) K/mcL Basophils # 0.1 (0.0-0.2) K/mcL Sodium 132 L (136-145) mEq/L Potassium 3.4 L (3.5-5.1) mEq/L Chloride 94 L (98-107) mEq/L Carbon Dioxide 19 L (23-29) mEq/L BUN 23 H (6-20) mg/dL Creatinine 1.12 (0.60-1.20) mg/dL Est GFR ( Amer) > 60 (> 60) Est GFR (Non-Af Amer) 52 L (> 60) BUN/Creatinine Ratio 21 (6-26) Glucose 173 H (70-105) mg/dL Calculated Osmolality 282 (280-300) Calcium 10.9 H (8.6-10.3) mg/dL Magnesium 2.0 (1.6-2.6) mg/dL Total Bilirubin 1.3 H (0.3-1.0) mg/dL AST 28 (13-39) Units/L ALT 67 H (7-52) Units/L Alkaline Phosphatase 98 (34-104) Units/L Troponin I < 0.03 (< 0.04) ng/mL Serum Total Protein 8.6 (6.4-8.9) g/dL Albumin 4.9 (3.5-5.7) g/dL Globulin 3.7 H (2.4-3.5) g/dL Albumin/Globulin Ratio 1.3 (1.1-2.2) Lipase 66 (11-82) Units/L Serum , Qual Negative (Negative) Attestation Statement - Attestation Attestation: I reviewed the residents documentation and agree with the residents assessment and plan of care. I have personally had face to face time with the patient. (Brief History, Brief Exam, and MDM) I personally supervised and was present for the romero/critical portions of the following procedures completed by the resident: EKG 48 year old female presents to the ED with complaints of vomitting and hypertension and was otherwise discharged yesterday after being treated with cardene drip and being diagnosed with moderately severe gastritis and esophagiti s found on EGD. PAtinet has returened to simliar sym[toms and has some minor electrolye abnormalities. We will continue to treat her intractble nauea and vomitting which is likely secondary to the EGD findings and also add CTA chest and ab/p to rule out a dissection component. Admit to medicine after evaluation
[2018-10-08] MEDS ORDERED: Naloxone 0.4 MG/ML INJ IVP PRN (16:15)
[2018-10-08 16:44] LABS: VBG HCO3 25 mEq/L (21-27); VBG PCO2 46 mmHg (41-51); VBG PH 7.35 pH Units (7.32-7.42); VBG PO2 44 mmHg (25-50)
[2018-10-08] MEDS ORDERED: niCARdipine 0 MG/0 ML MLS IVC ONE (16:55)
[2018-10-08] MEDS: niCARdipine 20 MG in 0.9 % Sodium Chloride 192 ML IVC SCH ×2 (17:00→20:12)
--- NOTE | 2018-10-08 17:32 | Internal Med History&Physical ---
Date of Encounter: 10/08/18 Time of Encounter: 17:26 Internal Medicine - H&P: HPI Chief complaint: Intractable nausea and vomiting, headache Admitted From: Emergency Dept History of present illness: Ms. Stoddard is a 48 year old female patient with a history of generalized anxiety disorder, depression, hypertension, esophagitis/gastritis who presented to the ER with complaints of nausea and vomiting that began early this morning after she ate her breakfast. She was also noted to be severely hypertensive and has been complaining of headache. No blurred vision or chest pain. She had just been discharged from the hospital yesterday after being admitted with similar symptoms. When she was discharged yesterday, she was tolerating oral diet well. Her blood pressure was well controlled with oral medications. She states that she went home and was doing fine until this morning. She ate dinner last night without any issues. She took her medications today and then ate breakfast and about 45 minutes afterwards, she began to have intractable nausea and vomiting. As such she came to the ER. She received Zofran here. Blood pressure was noted to be 225/126. Patient has now been placed on nicardipine drip. She denies any abdominal pain. She does not have any dysuria. No hematuria. This is her third visit to the ER with similar complaints this month. Previously she was last seen in 2017 with similar complaints. At that time she had been diagnosed with gastroparesis. However, patient did have EGD done 2 days back which showed moderately severe esophagitis and gastritis. Patient has been placed on Carafate and Protonix for this. Past Med Surg Social Fam HX - Past Medical History Attestation: Yes The following information was validated with the patient. Source: patient Medical history: hypertension, migraine, other Additional medical history: past hx of nausea,vomitting,diarrhea. Psychiatric history: depression - Past Surgical History Surgical History: , cholecystectomy Additional surgical history: back and wrist surgeries - Social History Smoking Status: Never smoker Smokeless Tobacco Status: No Alcohol use: none Drug use: none - Family History Father Living Status: Hx Family Cardiac Disorders: Yes Hx Family Cancer: Yes Hx Family Endocrine Disorder: Yes Mother Living Status: Still Living Hx Family Endocrine Disorder: Yes (DM) Internal Medicine - H&P: Meds Lisinopril/Hydrochlorothiazide [Zestoretic 20-25 mg Tablet] 1 tab PO DAILY 10/04/18 [History] Sertraline [Zoloft] 50 mg PO DAILY 10/04/18 [History] buPROPion HCl [Zyban] 150 mg PO BID 10/04/18 [History] Carvedilol [Coreg] 6.25 mg PO BIDWM #60 tablet 10/07/18 [Rx] Pantoprazole Sodium [Protonix] 40 mg PO BID #60 tablet. 10/07/18 [Rx] Sucralfate [Carafate] 1 gm PO TIDAC #90 tablet 10/07/18 [Rx] Allergy/AdvReac Type Severity Reaction Status Date / Time No Known Allergies Allergy Verified 10/04/18 22:44 All Systems PM: A 10-system review of systems was performed and is negative for pertinent findings except as documented above in the HPI. - Constitutional Constitutional: malaise, no chills, no fever(s), no night sweats - EENT Eyes: no change in vision, no discharge, no pain, no photophobia Ears: no ear discharge, no ear pain, no tinnitus Nose, mouth and throat: no dysphagia, no nasal discharge, no neck pain, no sore throat - Cardiovascular Cardiovascular ROS IM: no chest pain, no diaphoresis, no dyspnea, no lighthea dedness, no palpitations, no syncope - Respiratory Respiratory: no cough, no dyspnea, no wheezing, no excessive phlegm production - Gastrointestinal Gastrointestinal: nausea, vomiting, no abdominal pain, no diarrhea, no he matemesis, no hematochezia, no melena - Genitourinary Genitourinary: no change in urinary stream, no dysuria, no flank pain, no hematuria - Musculoskeletal Musculoskeletal ROS IM: no numbness, no tingling - Integumentary Integumentary IM: no rash, no unusual bruising - Neurological Neurological ROS: headache(s), no confusion, no convulsions, no focal weakness, no numbness, no tingling, no tremor(s) - Hematologic/Lymphatic Hematologic/Lymphatic: no easy bruising - Constitutional Vitals: Temp Pulse Resp BP Pulse Ox 97.4 F L 92 19 225/126 99 10/08/18 13:15 10/08/18 15:26 10/08/18 15:26 10/08/18 15:27 10/08/18 15:26 General appearance: Present: cooperative, A&O X 3, pleasant, answers questions appropriately Exam: General: Patient is alert, moderate distress, oriented x 3 Head: atraumatic, normocephalic, ENT: Mucous membranes moist Eye: normal appearance, PERRL, no scleral icterus, no conjunctival injection Neck: normal inspection, trachea midline, full ROM, no carotid bruits Chest: normal inspection, symmetric chest rise Respiratory: Good respiratory effort. Normal breath sounds. No wheezing or crackles. Cardiovascular: Regular rate and rhythm. s1 and s2 normal No clicks, rubs, gallops, or murmurs. No pedal edema Abdomen: Abdomen is soft, nontender. Bowel sounds are present Musculoskeletal: Spontaneously moving all extremities Skin: warm, dry, intact. Neuro: Alert oriented x 3 normal cranial nerves, no focal deficits Psych: Patient's affect is anxious Internal Med - H&P Results - Labs CBC & Chem 7: 10/08/18 13:50 10/08/18 13:50 Labs: Short CBC 10/08/18 10/08/18 10/08/18 Range/Units 13:50 13:50 14:30 WBC 12.3 H (4.3-11.1) K/mcL RBC 5.86 H (3.82-4.97) M/mcL Hgb 16.9 H D (11.5-15.4) g/dL Hct 49.6 H (35.3-44.9) % MCV 84.6 (83.0-100.0) fL MCH 28.8 (28.0-33.3) pg MCHC 34.1 (31.6-35.5) g/dL RDW 14.1 (11.5-14.5) % Plt Count 354 (140-400) K/mcL MPV 10.6 (9.4-12.4) fL Immature Gran % 0.3 (0-4) % Seg Neutrophils % 78.7 % Lymphocytes % 15.3 % Monocytes % 5.0 % Eosinophils % 0.2 % Basophils % 0.5 % Neutrophils # 9.7 H (1.6-8.9) K/mcL Lymphocytes # 1.9 (0.6-4.6) K/mcL Monocytes # 0.6 (0.0-1.3) K/mcL Eosinophils # 0.0 (0.0-0.6) K/mcL Basophils # 0.1 (0.0-0.2) K/mcL VBG pH (7.32-7.42) pH Units VBG pCO2 (41-51) mmHg VBG pO2 (25-50) mmHg VBG HCO3 (21-27) mEq/L Sodium 132 L (136-145) mEq/L Potassium 3.4 L (3.5-5.1) mEq/L Chloride 94 L (98-107) mEq/L Carbon Dioxide 19 L (23-29) mEq/L BUN 23 H (6-20) mg/dL Creatinine 1.12 (0.60-1.20) mg/dL Est GFR ( Amer) > 60 (> 60) Est GFR (Non-Af Amer) 52 L (> 60) BUN/Creatinine Ratio 21 (6-26) Glucose 173 H (70-105) mg/dL Calculated Osmolality 282 (280-300) Calcium 10.9 H (8.6-10.3) mg/dL Magnesium 2.0 (1.6-2.6) mg/dL Total Bilirubin 1.3 H (0.3-1.0) mg/dL AST 28 (13-39) Units/L ALT 67 H (7-52) Units/L Alkaline Phosphatase 98 (34-104) Units/L Troponin I < 0.03 (< 0.04) ng/mL Serum Total Protein 8.6 (6.4-8.9) g/dL Albumin 4.9 (3.5-5.7) g/dL Globulin 3.7 H (2.4-3.5) g/dL Albumin/Globulin Ratio 1.3 (1.1-2.2) Lipase 66 (11-82) Units/L Beta-Hydroxybutyric Acd (0.02-0.27) mmol/L Serum , Qual (Negative) Urine Color Dark Yellow (Yellow) Urine Clarity Turbid A (Clear) Urine pH 5.5 (5.0-8.0) pH Units Ur Specific [place] 1.030 H (1.010-1.025) Urine Protein 100 H (Neg-Trace) mg/dL Urine Glucose (UA) 100 H (Normal) mg/dL Urine Ketones >=160 H (Negative) mg/dL Urine Blood Negative (Negative) Urine Nitrite Negative (Negative) Urine Bilirubin Small H (Negative) Urine Urobilinogen Normal (Normal) mg/dL Ur Leukocyte Esterase Negative (Negative) Urine Microscopic RBC 3-5 H (0-3) per hpf Urine Microscopic WBC 5-15 H (0-3) per hpf Ur Squamous Epith Cells Many H (None-Few) per lpf Urine Bacteria Many H (None-Few) per hpf Ur Culture Indicated? YES A (NO) 10/08/18 10/08/18 10/08/18 Range/Units 14:37 14:37 16:41 WBC (4.3-11.1) K/mcL RBC (3.82-4.97) M/mcL Hgb (11.5-15.4) g/dL Hct (35.3-44.9) % MCV (83.0-100.0) fL MCH (28.0-33.3) pg MCHC (31.6-35.5) g/dL RDW (11.5-14.5) % Plt Count (140-400) K/mcL MPV (9.4-12.4) fL Immature Gran % (0-4) % Seg Neutrophils % % Lymphocytes % % Monocytes % % Eosinophils % % Basophils % % Neutrophils # (1.6-8.9) K/mcL Lymphocytes # (0.6-4.6) K/mcL Monocytes # (0.0-1.3) K/mcL Eosinophils # (0.0-0.6) K/mcL Basophils # (0.0-0.2) K/mcL VBG pH 7.35 (7.32-7.42) pH Units VBG pCO2 46 (41-51) mmHg VBG pO2 44 (25-50) mmHg VBG HCO3 25 (21-27) mEq/L Sodium (136-145) mEq/L Potassium (3.5-5.1) mEq/L Chloride (98-107) mEq/L Carbon Dioxide (23-29) mEq/L BUN (6-20) mg/dL Creatinine (0.60-1.20) mg/dL Est GFR ( Amer) (> 60) Est GFR (Non-Af Amer) (> 60) BUN/Creatinine Ratio (6-26) Glucose (70-105) mg/dL Calculated Osmolality (280-300) Calcium (8.6-10.3) mg/dL Magnesium (1.6-2.6) mg/dL Total Bilirubin (0.3-1.0) mg/dL AST (13-39) Units/L ALT (7-52) Units/L Alkaline Phosphatase (34-104) Units/L Troponin I (< 0.04) ng/mL Serum Total Protein (6.4-8.9) g/dL Albumin (3.5-5.7) g/dL Globulin (2.4-3.5) g/dL Albumin/Globulin Ratio (1.1-2.2) Lipase (11-82) Units/L Beta-Hydroxybutyric Acd > 2.00 H (0.02-0.27) mmol/L Serum , Qual Negative (Negative) Urine Color (Yellow) Urine Clarity (Clear) Urine pH (5.0-8.0) pH Units Ur Specific [place] (1.010-1.025) Urine Protein (Neg-Trace) mg/dL Urine Glucose (UA) (Normal) mg/dL Urine Ketones (Negative) mg/dL Urine Blood (Negative) Urine Nitrite (Negative) Urine Bilirubin (Negative) Urine Urobilinogen (Normal) mg/dL Ur Leukocyte Esterase (Negative) Urine Microscopic RBC (0-3) per hpf Urine Microscopic WBC (0-3) per hpf Ur Squamous Epith Cells (None-Few) per lpf Urine Bacteria (None-Few) per hpf Ur Culture Indicated? (NO) BMP 10/08/18 13:50 Sodium 132 L Potassium 3.4 L Chloride 94 L Carbon Dioxide 19 L BUN 23 H Creatinine 1.12 Glucose 173 H Calcium 10.9 H Cardiac Enzymes 10/08/18 Range/Units 13:50 Troponin I < 0.03 (< 0.04) ng/mL Liver Function 10/08/18 Range/Units 13:50 Total Bilirubin 1.3 H (0.3-1.0) mg/dL AST 28 (13-39) Units/L ALT 67 H (7-52) Units/L Alkaline Phosphatase 98 (34-104) Units/L Albumin 4.9 (3.5-5.7) g/dL Urine 10/08/18 Range/Units 14:30 Urine Color Dark Yellow (Yellow) Urine Clarity Turbid A (Clear) Urine pH 5.5 (5.0-8.0) pH Units Ur Specific [place] 1.030 H (1.010-1.025) Urine Protein 100 H (Neg-Trace) mg/dL Urine Glucose (UA) 100 H (Normal) mg/dL - ABG Interpretation ABG results: 10/08/18 16:41 VBG pH 7.35 VBG pCO2 46 VBG pO2 44 VBG HCO3 25 - Impressions ITS Impressions Chest X-Ray 10/08/18 13:32 IMPRESSION: No acute findings D/ / Nichole Davila MD / Nichole Davila MD Interpreting Provider: Nichole Davila MD Dissection 10/08/18 13:47 IMPRESSION: No acute findings to the chest, abdomen or pelvis. No evidence for aortic aneurysm or dissection. Mild diffuse fatty infiltration of the liver. D/ / 10/08/2018 15:50:18 Jama Joy MD / earnold Interpreting Provider: Jama Joy MD - Assessment and Plan (1) Hypertensive urgency Current Visit: Yes Status: Acute (2) Intractable vomiting with nausea Current Visit: Yes Status: Acute Qualifiers: Vomiting type: unspecified Qualified Code(s): R11.2 - Nausea with vomiting, unspecified (3) Headache Current Visit: Yes Status: Acute Qualifiers: Headache type: tension-type Headache chronicity pattern: acute headache Intractability: not intractable Qualified Code(s): G44.209 - Tension-type headache, unspecified, not intractable (4) Morbid obesity with BMI of 40.0-44.9, adult Current Visit: No Status: Chronic (5) Esophagitis Current Visit: No Status: Acute (6) Gastritis Current Visit: Yes Status: Acute Qualifiers: Gastritis type: unspecified gastritis Chronicity: acute Gastritis bleeding: without bleeding Qualified Code(s): K29.00 - Acute gastritis without bleeding - Summary of Assessment and Plan Summary of Assessment and Plan: Acute severe hypertensive urgency: Blood pressure severely elevated. No signs of end organ damage. Patient does have headache. Started on nicardipine drip. She has responded well to this medication in the past. Will continue. Monitor blood pressure closely. High risk for complications. Discussed with nephrology about causes of resistant hypertension. CT angiogram of the chest abdomen and pelvis done. Patient has a single right renal artery. Will obtain renal artery ultrasound and renal ultrasound. Also check plasma metanephrines, urine catecholamines, random cortisol levels and renin activity. Intractable nausea and vomiting: Most likely related to esophagitis/gastritis. May also have underlying nondiabetic gastroparesis as diagnosed previously but patient had a normal gastric emptying study in 2016. Will order trial of erythromycin to see if it helps with her symptoms. Continue Phenergan as needed for nausea. Keep nothing by mouth. Esophagitis/gastritis: Continue Carafate plus Protonix. Anxiety disorder/depression: Continue Zoloft and Wellbutrin. DVT prophylaxis with subcutaneous heparin. - Time Spent With Patient Total time spent is greater than 50% in coordination of care (as documented) at patient's floor/unit and/or counseling patient:
[2018-10-08] MEDS: Erythromycin Susp 200 MG/5 ML UDC PO SCH (19:37)
[2018-10-08] MEDS: Ringers Solution, Lactated 1,000 ML IVC SCH (19:39)
[2018-10-08] MEDS: *HR* Heparin 5,000 UNIT/ML VIAL SQ SCH (19:46)
[2018-10-09] MEDS: niCARdipine 20 MG in 0.9 % Sodium Chloride 192 ML IVC SCH (00:26)
[2018-10-09] MEDS: *HR* Heparin 5,000 UNIT/ML VIAL SQ SCH ×2 (04:42→17:56)
[2018-10-09 07:15] LABS: Basophils % 0.4 %; Eosinophils # 0.1 K/mcL (0.0-0.6); Eosinophils % 0.8 %; Hematocrit 40.5 % (35.3-44.9); Immature Granulocytes % 0.1 % (0-4); Lymphocytes # 1.8 K/mcL (0.6-4.6); Lymphocytes % 23.2 %; Mean Corpuscular HGB Conc 33.6 g/dL (31.6-35.5); Mean Corpuscular Hemoglobin 29.2 pg (28.0-33.3); Mean Corpuscular Volume 87.1 fL (83.0-100.0); Mean Platelet Volume 10.2 fL (9.4-12.4); Monocytes # 0.7 K/mcL (0.0-1.3); Monocytes % 8.8 %; Neutrophils # 5.1 K/mcL (1.6-8.9); Platelet Count 250 K/mcL (140-400); Red Blood Count 4.65 M/mcL (3.82-4.97); Red Cell Distribution Width 14.4 % (11.5-14.5); Segmented Neutrophils % 66.7 %; White Blood Count 7.6 K/mcL (4.3-11.1)
[2018-10-09 07:18] LABS: Hemoglobin 13.6 g/dL (11.5-15.4)
[2018-10-09 07:28] LABS: BUN/Creatinine Ratio 15 (6-26); Blood Urea Nitrogen 12 mg/dL (6-20); Calcium 9.4 mg/dL (8.6-10.3); Carbon Dioxide 28 mEq/L (23-29); Chloride 98 mEq/L (98-107); Glucose 93 mg/dL (70-105); Magnesium 1.8 mg/dL (1.6-2.6); Osmolality,Calculated 277 (280-300); Phosphorous 3.1 mg/dL (2.7-4.5); Sodium 134 mEq/L (136-145); eGFR For African Americans > 60 (> 60); eGFR For Non-African Americans > 60 (> 60)
[2018-10-09] MEDS: Sucralfate 1 GM TABLET PO SCH ×3 (07:33→15:16)
[2018-10-09] MEDS: Erythromycin Susp 200 MG/5 ML UDC PO SCH ×3 (07:36→20:48)
[2018-10-09] MEDS: Ringers Solution, Lactated 1,000 ML IVC SCH ×2 (09:09→22:25)
--- NOTE | 2018-10-09 12:18 | Internal Med Progress Note ---
Hospitalist Progress Note - Encounter Date of Encounter: 10/09/18 Time of Encounter: 12:11 - Subjective Interval History: Patient feeling much better this morning. Tolerating oral diet well. No new complaints. Blood pressure is better controlled. Has been off nicardipine drip since 2-3AM. No abdominal pain. No chest pain. - Exam Vitals: Temp Pulse Resp BP Pulse Ox 98.5 F 94 18 139/80 95 10/09/18 10:56 10/09/18 10:56 10/09/18 10:56 10/09/18 10:56 10/09/18 10:56 Exam: General: Patient is alert, mild distress, oriented x 3 Respiratory: Good respiratory effort. Normal breath sounds. No wheezing or crackles. Cardiovascular: Regular rate and rhythm. s1 and s2 normal No clicks, rubs, gallops, or murmurs. No pedal edema Abdomen: Abdomen is soft, nontender. Bowel sounds are present Musculoskeletal: Spontaneously moving all extremities Skin: warm, dry, intact. Neuro: Alert oriented x 3 normal cranial nerves, no focal deficits - Assessment and Plan (1) Hypertensive urgency Current Visit: Yes Status: Acute (2) Intractable vomiting with nausea Current Visit: Yes Status: Acute (3) Headache Current Visit: Yes Status: Acute (4) Morbid obesity with BMI of 40.0-44.9, adult Current Visit: No Status: Chronic (5) Esophagitis Current Visit: Yes Status: Acute (6) Gastritis Current Visit: Yes Status: Acute DVT Prophylaxis: On subcutaneous heparin - Summary of Assessment and Plan Summary of Assessment and Plan: Acute severe hypertensive urgency: Blood pressure improved and now controlled with oral medications. Random cortisol level normal. Catecholamines, metanephrines and renin activity pending. Continue lisinopril/hydrochlorothiazide and carvedilol. Intractable nausea and vomiting: This has also improved. Continue Phenergan as needed. Continue erythromycin for suspected gastroparesis. Esophagitis/gastritis: Continue Carafate plus Protonix. Anxiety disorder/depression: Continue Zoloft and Wellbutrin. DVT prophylaxis with subcutaneous heparin. - Time Spent with Patient Total time spent is greater than 50% in coordination of care (as documented) at patient's floor/unit and/or counseling patient: Internal Medicine: Result - Labs CBC & Chem 7: 10/09/18 06:39 10/09/18 06:39 Labs: Short CBC 10/08/18 10/09/18 Range/Units 13:50 06:39 WBC 12.3 H 7.6 (4.3-11.1) K/mcL Hgb 16.9 H D 13.6 D (11.5-15.4) g/dL Hct 49.6 H 40.5 (35.3-44.9) % Plt Count 354 250 (140-400) K/mcL Neutrophils # 9.7 H 5.1 (1.6-8.9) K/mcL BMP 10/08/18 10/09/18 13:50 06:39 Sodium 132 L 134 L Potassium 3.4 L 3.0 L Chloride 94 L 98 Carbon Dioxide 19 L 28 BUN 23 H 12 Creatinine 1.12 0.80 Glucose 173 H 93 Calcium 10.9 H 9.4 Cardiac Enzymes 10/08/18 Range/Units 13:50 Troponin I < 0.03 (< 0.04) ng/mL Liver Function 10/08/18 Range/Units 13:50 Total Bilirubin 1.3 H (0.3-1.0) mg/dL AST 28 (13-39) Units/L ALT 67 H (7-52) Units/L Alkaline Phosphatase 98 (34-104) Units/L Albumin 4.9 (3.5-5.7) g/dL Urine 10/08/18 Range/Units 14:30 Urine Color Dark Yellow (Yellow) Urine Clarity Turbid A (Clear) Urine pH 5.5 (5.0-8.0) pH Units Ur Specific [place] 1.030 H (1.010-1.025) Urine Protein 100 H (Neg-Trace) mg/dL Urine Glucose (UA) 100 H (Normal) mg/dL - Impressions Impressions Chest X-Ray 10/08/18 13:32 IMPRESSION: No acute findings D/ / Nichole Davila MD / Nichole Davila MD Interpreting Provider: Nichole Davila MD Dissection 10/08/18 13:47 IMPRESSION: No acute findings to the chest, abdomen or pelvis. No evidence for aortic aneurysm or dissection. Mild diffuse fatty infiltration of the liver. D/ / 10/08/2018 15:50:18 Jama Joy MD / earnold Interpreting Provider: Jama Joy MD Consult Discharge Plan - Plan Referrals: Viraj Ulloa, [facility] [Primary Care Provider] - (2) Intractable vomiting with nausea Qualifiers: Vomiting type: unspecified Qualified Code(s): R11.2 - Nausea with vomiting, unspecified (3) Headache Qualifiers: Headache type: tension-type Headache chronicity pattern: acute headache Intractability: not intractable Qualified Code(s): G44.209 - Tension-type headache, unspecified, not intractable (6) Gastritis Qualifiers: Gastritis type: unspecified gastritis Chronicity: acute Gastritis bleeding: without bleeding Qualified Code(s): K29.00 - Acute gastritis without bleeding
--- NOTE | 2018-10-09 16:29 | Electrocardiograph Report ---
[place] [id number] Test Date: 2018-10-08 Pat Name: Yara Stoddard Department: [id number] Room: 2N13 Gender: F [employer]rome[employer] Equipment Tester: : 1970 Requested By: Deo Cummings Order Number: [id number] Reading MD: Rob Sapp Measurements Intervals [place] Rate: 87 P: 68 CT: 129 QRS: 16 QRSD: 96 T: 45 QT: 393 QTc: 473 Interpretive Statements Sinus rhythm Possible inferior infarct, old Electronically Signed On 10-09-2018 16:27:41 EDT by Rob Sapp
--- NOTE | 2018-10-09 16:37 | Nephrology Consult Note ---
Date of Encounter: 10/09/18 Time of Encounter: 09:00 Assessment and Plan (1) Hypertensive urgency Current Visit: Yes Status: Acute Patient presented with BP 225/126 Was having some nausea and v omitting in addition to headache Denies any chest pain, blurred vision, palpitations, SOB Has had multiple extensive work-ups in the past for similar concerns Most recently discharged from hospital on 10/07 Reports she will often leave hospital with BP meds and then BP will drop at home Subsequently will be taken off BP meds until she has another hypertensive episode Pheocromocytoma work-up in the past has been negative, TSH normal on 10/04 Had extensive autoimmune work-up on 09/20, all wnl Will work-up for secondary causes of hypertension -Renin, aldosterone activity -Catecholamines, metanephrines -TSH normal on last admit will not repeat History of Present Illness - History of Present Illness Ms. Stoddard is a 48 y/o female with a past medical history of Hypertension, Esophagitis/Gastritis, anxiety, depression who presents with complaints of nausea and vomitting. She was found to be severely hypertensive in the ED. This is her third such presentation for similar symptoms. She reports that she is usually medically managed in the hospital for severe hypertension, then gets discharge and subsequently develops low blood pressure on outpatient follow-up. She has no other symptoms associated with hypertensive urgency, denies chest pain, palpitations, blurred vision. She does have a history of migraines but is not currently experiencing any headache. She states all these problems with her BP began around the time she became roughly 5 years ago. The patient was being followed by [facility] and had been taking labetelol daily until she was sent to [facility] for complications. She ultimately went into cardiac arrest during her admission at [facility]. BP in the ED has been as high as 225/126. She was started on nicardipine drip but this was titrated off this overnight. Her labs were significant for WBC 12.3, Na 132, K 3.4, Bicarb 19, Cr is at baseline. Urinalysis shows large amount of protein and ketones with microscopic hematuria. Random cortisol obtained and was wnl. 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 Metanephrines, Catecholamines and Renin activity lab tests have been ordered and are pending. Past Med Surg Social Fam HX - Past Medical History Medical history: hypertension, migraine, other Additional medical history: past hx of nausea,vomitting,diarrhea. Psychiatric history: depression - Past Surgical History Surgical History: , cholecystectomy Additional surgical history: back and wrist surgeries - Social History Smoking Status: Never smoker Smokeless Tobacco Status: No Alcohol use: none Drug use: none - Family History Father Living Status: Hx Family Cardiac Disorders: Yes Hx Family Cancer: Yes Hx Family Endocrine Disorder: Yes Mother Living Status: Still Living Hx Family Endocrine Disorder: Yes (DM) Medications and Allergies Lisinopril/Hydrochlorothiazide [Zestoretic 20-25 mg Tablet] 1 tab PO DAILY 10/04/18 [History] Sertraline [Zoloft] 50 mg PO DAILY 10/04/18 [History] buPROPion HCl [Zyban] 150 mg PO BID 10/04/18 [History] Carvedilol [Coreg] 6.25 mg PO BIDWM #60 tablet 10/07/18 [Rx] Pantoprazole Sodium [Protonix] 40 mg PO BID #60 tablet. 10/07/18 [Rx] Sucralfate [Carafate] 1 gm PO TIDAC #90 tablet 10/07/18 [Rx] Allergy/AdvReac Type Severity Reaction Status Date / Time No Known Allergies Allergy Verified 10/09/18 16:23 Review of Systems Constitutional: no fatigue, no headache(s), no weakness Eyes: bilateral: blurred vision (denies), loss of vision (denies), pain (denies), photophobia (denies) Cardiovascular: no chest pain, no dyspnea, no radiating jaw, neck or arm pain, no palpitations, no rapid heart rate Respiratory: no hemoptysis Gastrointestinal: no abdominal pain, no heartburn Musculoskeletal: no joint swelling, no muscle cramps, no myalgias, no numbness, no tingling Neurological: no dizziness, no syncope Exam - Vital Signs Vital signs: Initial Vital Signs Temp Pulse Resp BP Pulse Ox 97.4 F L 101 18 200/154 98 10/08/18 13:15 10/08/18 13:15 10/08/18 13:15 10/08/18 13:15 10/08/18 13:15 Vital Signs - Last 8 Hours Temp Pulse Resp BP Pulse Ox 10/09/18 10:56 98.5 F 94 18 139/80 95 Intake and Output 10/09/18 10/09/18 10/09/18 07:59 15:59 23:59 Intake Total 149.6 / 2149.6 1999 / 2149.6 Output Total 325 / 325 Balance -175.4 / 1824.6 2000 / 1824.6 Intake: IV Fluids 149.6 / 1149.6 1000 / 1149.6 Lactated Ringers 1,000 ML @ 75 1000 / 1000 mls/hr IVC .[id number] A[facility]Y Rx#: [id number] Cardene 20 MG In 0.9 % Sodium 149.6 / 149.6 Chloride 192 ML @ 5 MG/HR 50 mls/hr IVC .Q4H A[facility]Y Rx#: [id number] Oral 1000 / 1000 Output: Urine 325 / 325 Other: Meal Lunch Stool Size Small Stool Consistency loose Stool Color Brown # Voids 1 1 # Bowel Movements 1 Weight 112.6 kg Patient Weight 10/09/18 23:59 Weight 112.6 kg - General Appearance Exam: Gen: A&Ox3, NAD, pleasant HEENT: MMM, oropharynx clear, no nystagmus NecK: no lymphadenopathy, no rigidity CV: CTAB, no wheezes, rales, rhonchi Abd: soft, nontender, nondistended, no palpable thrill Ext: no clubbin, cyanosis, rashes, edema Neuro: no focal deficits Psych: affect appropriate Results - Lab Results 10/09/18 06:39 10/09/18 06:39 Most recent lab results 10/09/18 06:39 Calcium 9.4 Phosphorus 3.1 Magnesium 1.8 Consult Discharge Plan - Plan Referrals: Viraj Ulloa, RN [facility] [Primary Care Provider] -
[2018-10-10 00:45] LABS: Creatinine,Urine 35 mg/dL; Microalbumin,Urine < 7 mg/L
[2018-10-10] MEDS: *HR* Heparin 5,000 UNIT/ML VIAL SQ SCH ×2 (04:58→17:12)
[2018-10-10] MEDS: Sucralfate 1 GM TABLET PO SCH ×3 (07:44→15:39)
[2018-10-10] MEDS: Erythromycin Susp 200 MG/5 ML UDC PO SCH ×3 (07:54→20:08)
[2018-10-10] MEDS: *HR* Promethazine 25 MG/ML VIAL IVP PRN ×2 (08:46→18:02)
[2018-10-10] MEDS: niCARdipine 20 MG in 0.9 % Sodium Chloride 192 ML IVC SCH ×2 (09:15→12:15)
[2018-10-10] MEDS: Ondansetron 4 MG/2 ML VIAL IVP PRN (11:11)
[2018-10-10] MEDS ORDERED: Prochlorperazine 10 MG/2 ML VIAL IVP PRN (12:42)
--- NOTE | 2018-10-10 13:19 | Internal Med Progress Note ---
Hospitalist Progress Note - Encounter Date of Encounter: 10/10/18 Time of Encounter: 09:50 - Subjective Interval History: Patient began to develop nausea and vomiting again today while eating breakfast. Again developed severe hypertension with headache. No chest pain or palpitations. She did eat her meals yesterday without any issues. Was able to tolerate dinner well. Was doing well this morning. She had a bath and then came to bedside to eat and began to develop nausea again. She received Zofran and Phenergan with no significant in her nausea. - Exam Vitals: Temp Pulse Resp BP Pulse Ox 97.7 F 86 18 210/121 98 10/10/18 07:52 10/10/18 09:15 10/10/18 09:15 10/10/18 09:15 10/10/18 09:15 Exam: General: Patient is alert, mild distress, oriented x 3 Respiratory: Good respiratory effort. Normal breath sounds. No wheezing or crackles. Cardiovascular: Regular rate and rhythm. s1 and s2 normal No clicks, rubs, gallops, or murmurs. No pedal edema Abdomen: Abdomen is soft, nontender. Bowel sounds are present Musculoskeletal: Spontaneously moving all extremities Skin: warm, dry, intact. Neuro: Alert oriented x 3 normal cranial nerves, no focal deficits - Assessment and Plan (1) Hypertensive urgency Current Visit: Yes Status: Acute (2) Intractable vomiting with nausea Current Visit: Yes Status: Acute (3) Headache Current Visit: Yes Status: Acute (4) Morbid obesity with BMI of 40.0-44.9, adult Current Visit: No Status: Chronic (5) Esophagitis Current Visit: Yes Status: Acute (6) Gastritis Current Visit: Yes Status: Acute DVT Prophylaxis: On subcutaneous heparin - Summary of Assessment and Plan Summary of Assessment and Plan: Acute severe hypertensive urgency: Again developed hypertensive urgency today. Has been placed back on nicardipine drip. Nephrology following. Stopped Prinzide and have placed patient on spironolactone plus lisinopril instead. Continue Coreg. Intractable nausea and vomiting: On Phenergan and Zofran. Will give one dose of Compazine to see if this helps with her nausea. Did receive erythromycin for possible gastroparesis. Has been tolerating it well so far. Esophagitis/gastritis: Continue Carafate plus Prilosec Anxiety disorder/depression: Continue Zoloft and Wellbutrin. DVT prophylaxis with subcutaneous heparin. - Time Spent with Patient Total time spent is greater than 50% in coordination of care (as documented) at patient's floor/unit and/or counseling patient: Internal Medicine: Result - Labs CBC & Chem 7: 10/09/18 06:39 10/09/18 06:39 Consult Discharge Plan - Plan Referrals: Viraj Ulloa CNP [Primary Care Provider] - (walk in appointments only) (2) Intractable vomiting with nausea Qualifiers: Vomiting type: unspecified Qualified Code(s): R11.2 - Nausea with vomiting, unspecified (3) Headache Qualifiers: Headache type: tension-type Headache chronicity pattern: acute headache Intractability: not intractable Qualified Code(s): G44.209 - Tension-type headache, unspecified, not intractable (6) Gastritis Qualifiers: Gastritis type: unspecified gastritis Chronicity: acute Gastritis bleeding: without bleeding Qualified Code(s): K29.00 - Acute gastritis without bleeding
[2018-10-10] MEDS: niCARdipine 40 MG/200 ML MLS IVC SCH ×2 (15:31→21:00)
--- NOTE | 2018-10-10 21:43 | Nephrology Progress Note ---
Date of Encounter: 10/11/18 Time of Encounter: 09:00 - Assessment and Plan (1) Hypertensive urgency Current Visit: Yes Status: Acute Patient presented with BP 225/126 Was symptomatic; Nausea, vomitting, headaches Has had multiple extensive work-ups in the past for similar concerns Most recently discharged from hospital on 10/07 Pheocromocytoma work-up in the past has been negative, TSH normal on 10/04 Had extensive autoimmune work-up on 09/20, all wnl Work-up for secondary cause still pending -Renin, aldosterone activity -Catecholamines, metanephrines -TSH normal on last admit will not repeat Potassium has been low with elevated sodium in the past Hyperaldosteronism could be potentially playing a role Plan: Stop Hydrochlorothiazie, continue lisinopril Add Aldactone 50mg follow up labwork continue to monitor vitals, BMP Subjective Principal diagnosis: Hypertensive Urgency Interval history: Patient seen and examined at bedside. Patients BP had been well controlled until this morning. Suddenly became nauseous, diaphoretic, flush and her BP was checked and was 210 systolic. Additionally, the patient was tachycardic in the 110's. Patient does admit to being restarted on Wellbutrin 300mg last week. She was restarted on the nicardipine drip this morning 2/2 the hypertension and her symptoms resolved. She was resting comfortable in bed upon my exam and reports resolution of her symptoms. Objective - Vital Signs Vital signs: Vital Signs Temp Pulse Resp BP Pulse Ox 10/10/18 18:53 98.3 F 112 19 185/102 96 10/10/18 18:33 165/96 10/10/18 18:00 107 170/106 95 10/10/18 17:23 107 10/10/18 16:49 95 18 163/98 94 10/10/18 15:45 109 184/94 10/10/18 15:15 104 173/84 10/10/18 14:15 95 146/70 10/10/18 13:15 101 162/91 10/10/18 12:15 95 179/96 10/10/18 11:15 95 159/89 10/10/18 10:15 101 20 176/94 98 10/10/18 09:15 86 18 210/121 98 10/10/18 07:52 97.7 F 18 10/10/18 07:42 83 158/89 10/10/18 04:55 66 10/10/18 03:12 98.1 F 76 18 144/86 95 10/09/18 23:55 73 10/09/18 23:53 98.3 F 85 16 119/63 92 Intake and Output 10/10/18 10/10/18 10/10/18 07:59 15:59 23:59 Intake Total 100 / 700.0 406.5 / 700.0 193.5 / 700.0 Output Total 800 / 2700 1300 / 2700 600 / 2700 Balance -700 / -2000.0 -893.5 / -2000.0 -406.5 / -2000.0 Intake: IV Fluids 406.5 / 600.0 193.5 / 600.0 Cardene 20 MG In 0.9 % Sodium 400.0 / 400.0 Chloride 192 ML @ 5 MG/HR 50 mls/hr IVC .Q4H AURY Rx#: [id number] Cardene Premix 40mg/200ml 40 mg 6.5 / 200.0 193.5 / 200.0 In 200 ml @ 5 MG/HR 25 mls/hr IVC .Q8H AURY Rx#:[id number] Oral 100 / 100 Output: Urine 800 / 1700 650 / 1700 250 / 1700 Emesis 650 / 1000 350 / 1000 Other: Meal Breakfast Dinner Percent of Meal Consumed 10% 0% # Urine Diapers 1 Weight 113 kg Patient Weight 10/10/18 23:59 Weight 113 kg - General Appearance Exam: Gen: A&Ox3, NAD, vitals noted HEENT: no nystagmus, Mucous Membranes Moist Neck: no thyromegaly, no lymphadenopathy, no nuchal rigidity CV: RRR, no murmurs gallops rubs Lungs; CTAB, no wheezes rales rhonchi Abd: soft, nontender, nondistended Skin: flushing noted, no rashes, bruises Ext: no peripheral edema, cyanosis, clubbing - Lab 10/11/18 03:28 10/11/18 03:28 Consult Discharge Plan - Plan Referrals: Viraj Ulloa, HANG [Primary Care Provider] - (walk in appointments only)
[2018-10-11 04:19] LABS: Basophils # 0.1 K/mcL (0.0-0.2); Basophils % 0.4 %; Eosinophils # 0.1 K/mcL (0.0-0.6); Eosinophils % 0.5 %; Hematocrit 43.5 % (35.3-44.9); Hemoglobin 14.7 g/dL (11.5-15.4); Immature Granulocytes % 0.4 % (0-4); Lymphocytes # 3.9 K/mcL (0.6-4.6); Lymphocytes % 27.4 %; Mean Corpuscular HGB Conc 33.8 g/dL (31.6-35.5); Mean Corpuscular Hemoglobin 29.3 pg (28.0-33.3); Mean Corpuscular Volume 86.7 fL (83.0-100.0); Mean Platelet Volume 10.6 fL (9.4-12.4); Monocytes # 1.3 K/mcL (0.0-1.3); Monocytes % 8.8 %; Neutrophils # 8.9 K/mcL (1.6-8.9); Platelet Count 325 K/mcL (140-400); Red Blood Count 5.02 M/mcL (3.82-4.97); Red Cell Distribution Width 13.8 % (11.5-14.5); Segmented Neutrophils % 62.5 %; White Blood Count 14.2 K/mcL (4.3-11.1)
[2018-10-11 04:38] LABS: BUN/Creatinine Ratio 11 (6-26); Blood Urea Nitrogen 7 mg/dL (6-20); Carbon Dioxide 24 mEq/L (23-29); Chloride 98 mEq/L (98-107); Glucose 103 mg/dL (70-105); Osmolality,Calculated 276 (280-300); Potassium 3.5 mEq/L (3.5-5.1); Sodium 134 mEq/L (136-145); eGFR For African Americans > 60 (> 60); eGFR For Non-African Americans > 60 (> 60)
[2018-10-11] MEDS: *HR* Heparin 5,000 UNIT/ML VIAL SQ SCH ×2 (05:39→16:41)
[2018-10-11] MEDS: Lisinopril 20 MG TABLET PO SCH (08:52)
[2018-10-11] MEDS: Sucralfate 1 GM TABLET PO SCH ×3 (08:52→16:41)
[2018-10-11] MEDS: niCARdipine 40 MG/200 ML MLS IVC SCH ×2 (09:01→21:04)
[2018-10-11] MEDS: *HR* Promethazine 25 MG/ML VIAL IVP PRN (09:02)
[2018-10-11] MEDS: Erythromycin Susp 200 MG/5 ML UDC PO SCH ×3 (09:16→21:40)
[2018-10-11] MEDS ORDERED: *HR* LORazepam 1 MG TABLET PO ONE (09:23)
--- NOTE | 2018-10-11 11:05 | Nephrology Progress Note ---
Date of Encounter: 10/11/18 Time of Encounter: 11:00 - Assessment and Plan (1) Hypertensive urgency Current Visit: Yes Status: Acute Patient has significantly elevated BP's on admission Has significant work-up in the past Recent TSH normal 10/04, will not repeat this time Cortisol levels ordered, wnl Renal artery stenosis ruled-out Still awaiting Metanephrines, Catecholamines, Renin/Aldosterone Has had persistently low potassium levels In setting of profound HTN, Suspect HyperAldosteronism playing a role Patient normally takes Hydrochlorothiaze/Lisinopril and is also on Wellbutrin Also likely a component of patients significant anxiety Plan: -Stop Wellbutrin, switch to Buspar for anxiety -May use PRN ativan in the short term while admitted -Stop Hydrochlorothiazide, continue lisinopril -Continue 50mg Aldactone -Follow up labs -Continue to monitor Subjective Principal diagnosis: Hypertensive Urgency Interval history: Patient seen and examined at bedside. Patient again had a bout of significant hypertension with associated nausea. Denied headache, chest pain, numbness, tin gling, admits to some mild shortness of breath associated with shallow rapid breathing, as well as diaphoresis and flushing. Reports it is not as bad as her episode yesterday morning. Has been on the Nicardipine drip since last night. Has been taken off her Wellbutrin and started on Buspar. Objective - Vital Signs Vital signs: Vital Signs Temp Pulse Resp BP Pulse Ox 10/11/18 10:02 109 171/99 10/11/18 09:30 113 183/103 10/11/18 09:15 111 193/108 10/11/18 08:45 116 202/119 10/11/18 07:22 97.8 F 101 17 119/77 98 10/11/18 03:10 85 10/11/18 03:06 97.8 F 94 17 132/89 97 10/10/18 23:50 105 10/10/18 22:46 98.3 F 107 18 150/79 95 10/10/18 20:00 107 10/10/18 18:53 98.3 F 112 19 185/102 96 10/10/18 18:33 165/96 10/10/18 18:00 107 170/106 95 10/10/18 17:23 107 10/10/18 16:49 95 18 163/98 94 10/10/18 15:45 109 184/94 10/10/18 15:15 104 173/84 10/10/18 14:15 95 146/70 10/10/18 13:15 101 162/91 10/10/18 12:15 95 179/96 10/10/18 11:15 95 159/89 Intake and Output 10/10/18 10/11/18 10/11/18 23:59 07:59 15:59 Intake Total 193.5 / 700.0 560 / 560 Output Total 600 / 2700 400 / 400 Balance -406.5 / -2000.0 -400 / 160 560 / 160 Intake: IV Fluids 193.5 / 600.0 200 / 200 Cardene Premix 40mg/200ml 40 mg 193.5 / 200.0 200 / 200 In 200 ml @ 5 MG/HR 25 mls/hr IVC .Q8H AURY Rx#:[id number] Oral 360 / 360 Output: Urine 250 / 1700 400 / 400 Emesis 350 / 1000 Other: Meal Dinner Breakfast Percent of Meal Consumed 0% 35% # Urine Diapers 1 Weight 112.7 kg Patient Weight 10/11/18 23:59 Weight 112.7 kg - General Appearance Exam: Gen: A&Ox3, NAD, vitals noted HEENT: Mucous Membranes Moist, no nystagmus Neck: no thyromegaly, no lymphadenopathy CV: Tachycardic, rythym regular, no murmurs gallops rubs Resp: Lungs CTAB, no wheezes rales rhonchi Abd: soft, nontender, nondistended Ext: no clubbing, cyanosis, peripheral edema Skin: flushing noted, no rashes - Lab 10/11/18 03:28 10/11/18 03:28 Most recent lab results 10/11/18 03:28 Calcium 10.0 Consult Discharge Plan - Plan Referrals: Viraj Ulloa CNP [Primary Care Provider] - (walk in appointments only)
--- NOTE | 2018-10-11 12:26 | Internal Med Progress Note ---
Hospitalist Progress Note - Encounter Date of Encounter: 10/11/18 Time of Encounter: 12:24 - Subjective Interval History: Patient was doing well earlier this morning but began to develop nausea and blood pressure went up again. Remains on nicardipine drip. No fever or chills reported overnight. Did eat breakfast this morning. - Exam Vitals: Temp Pulse Resp BP Pulse Ox 97.8 F 110 18 146/89 95 10/11/18 07:22 10/11/18 11:51 10/11/18 11:51 10/11/18 11:51 10/11/18 11:51 Exam: General: Patient is alert, mild distress, oriented x 3 Respiratory: Good respiratory effort. Normal breath sounds. No wheezing or crackles. Cardiovascular: Regular rate and rhythm. s1 and s2 normal No clicks, rubs, gallops, or murmurs. No pedal edema Abdomen: Abdomen is soft, nontender. Bowel sounds are present Musculoskeletal: Spontaneously moving all extremities Skin: warm, dry, intact. Psych: Anxious Neuro: Alert oriented x 3 normal cranial nerves, no focal deficits - Assessment and Plan (1) Hypertensive urgency Current Visit: Yes Status: Acute (2) Intractable vomiting with nausea Current Visit: Yes Status: Acute (3) Headache Current Visit: Yes Status: Acute (4) Morbid obesity with BMI of 40.0-44.9, adult Current Visit: No Status: Chronic (5) Esophagitis Current Visit: Yes Status: Acute (6) Gastritis Current Visit: Yes Status: Acute (7) Protein calorie malnutrition Current Visit: Yes Status: Acute DVT Prophylaxis: On subcutaneous heparin - Summary of Assessment and Plan Summary of Assessment and Plan: Acute severe hypertensive urgency: Considering hyperaldosteronism due to persistent hypertension and hypokalemia. Patient placed on Aldactone. Remains on nicardipine drip. Will wean as tolerated. Intractable nausea and vomiting: On Phenergan and Zofran. Continue erythromycin for possible gastroparesis. Esophagitis/gastritis: Continue Carafate plus Prilosec Anxiety disorder/depression: Appears to be poorly controlled. Wellbutrin has been stopped. Continue Zoloft. Will add BuSpar. Also place patient on clonazepam 0.5 mg twice daily for now due to acutely controlled her symptoms as this could also be contributing to her hypertensive urgency. Protein calorie malnutrition. Patient evaluated by nutrition and diagnosed with protein calorie malnutrition due to weight loss of greater than 5% in 1 month and energy intake of less than 50%. However patient does have morbid obesity underlying. DVT prophylaxis with subcutaneous heparin. - Time Spent with Patient Total time spent is greater than 50% in coordination of care (as documented) at patient's floor/unit and/or counseling patient: Internal Medicine: Result - Labs CBC & Chem 7: 10/11/18 03:28 10/11/18 03:28 Labs: Short CBC 10/11/18 Range/Units 03:28 WBC 14.2 H D (4.3-11.1) K/mcL Hgb 14.7 (11.5-15.4) g/dL Hct 43.5 (35.3-44.9) % Plt Count 325 (140-400) K/mcL Neutrophils # 8.9 (1.6-8.9) K/mcL BMP 10/11/18 03:28 Sodium 134 L Potassium 3.5 Chloride 98 Carbon Dioxide 24 BUN 7 Creatinine 0.62 Glucose 103 Calcium 10.0 Consult Discharge Plan - Plan Referrals: Viraj Ulloa CNP [Primary Care Provider] - (walk in appointments only) (2) Intractable vomiting with nausea Qualifiers: Vomiting type: unspecified Qualified Code(s): R11.2 - Nausea with vomiting, unspecified (3) Headache Qualifiers: Headache type: tension-type Headache chronicity pattern: acute headache Intr actability: not intractable Qualified Code(s): G44.209 - Tension-type headache, unspecified, not intractable (6) Gastritis Qualifiers: Gastritis type: unspecified gastritis Chronicity: acute Gastritis bleeding: without bleeding Qualified Code(s): K29.00 - Acute gastritis without bleeding (7) Protein calorie malnutrition Qualifiers: Protein-calorie malnutrition severity: mild Qualified Code(s): E44.1 - Mild protein-calorie malnutrition
[2018-10-11] MEDS: Potassium Chloride Elixir 20 MEQ/15 ML UDC PO SCH ×2 (14:52→21:39)
[2018-10-11] MEDS: clonazePAM 0.5 MG TABLET PO SCH (21:38)
[2018-10-11] MEDS: Ondansetron 4 MG/2 ML VIAL IVP PRN (23:40)
[2018-10-12] MEDS: *HR* Heparin 5,000 UNIT/ML VIAL SQ SCH (05:24)
[2018-10-12 05:48] LABS: Basophils # 0.1 K/mcL (0.0-0.2); Basophils % 0.8 %; Eosinophils # 0.1 K/mcL (0.0-0.6); Eosinophils % 0.6 %; Hematocrit 40.8 % (35.3-44.9); Hemoglobin 13.6 g/dL (11.5-15.4); Immature Granulocytes % 0.3 % (0-4); Lymphocytes # 4.1 K/mcL (0.6-4.6); Lymphocytes % 39.2 %; Mean Corpuscular HGB Conc 33.3 g/dL (31.6-35.5); Mean Corpuscular Hemoglobin 28.8 pg (28.0-33.3); Mean Corpuscular Volume 86.3 fL (83.0-100.0); Mean Platelet Volume 10.8 fL (9.4-12.4); Monocytes # 0.9 K/mcL (0.0-1.3); Monocytes % 8.5 %; Neutrophils # 5.3 K/mcL (1.6-8.9); Platelet Count 283 K/mcL (140-400); Red Blood Count 4.73 M/mcL (3.82-4.97); Red Cell Distribution Width 14.1 % (11.5-14.5); Segmented Neutrophils % 50.6 %; White Blood Count 10.5 K/mcL (4.3-11.1)
[2018-10-12 06:09] LABS: BUN/Creatinine Ratio 11 (6-26); Blood Urea Nitrogen 8 mg/dL (6-20); Calcium 9.8 mg/dL (8.6-10.3); Carbon Dioxide 26 mEq/L (23-29); Chloride 99 mEq/L (98-107); Glucose 95 mg/dL (70-105); Osmolality,Calculated 280 (280-300); Potassium 3.5 mEq/L (3.5-5.1); Sodium 136 mEq/L (136-145); eGFR For African Americans > 60 (> 60); eGFR For Non-African Americans > 60 (> 60)
[2018-10-12] MEDS: niCARdipine 40 MG/200 ML MLS IVC SCH (07:35)
[2018-10-12 07:57] VITALS: BP 132/89
[2018-10-12] MEDS: Lisinopril 20 MG TABLET PO SCH (08:10)
[2018-10-12] MEDS: Sucralfate 1 GM TABLET PO SCH ×2 (08:10→12:16)
[2018-10-12] MEDS: clonazePAM 0.5 MG TABLET PO SCH (08:11)
[2018-10-12 08:54] LABS: Urine Collection Volume RANDOM mL
[2018-10-12] MEDS: Erythromycin Susp 200 MG/5 ML UDC PO SCH (09:29)
--- NOTE | 2018-10-12 11:21 | Discharge Summary ---
- NOTES TO OUTPATIENT PROVIDER Notes to Outpatient Provider: Patient with history of essential hypertension and anxiety disorder who was hospitalized here with complaints of intractable nausea and vomiting and hypertensive urgency. This is his third admission to the hospital for similar complaints. Patient has been having hypertensive urgency intermittently associated with nausea and vomiting and increased anxiety. Nephrology was consulted and per their evaluation we suspected the patient may have hyperaldosteronism. As such patient has been placed on Aldactone and hydrochlorothiazide discontinued. For her anxiety, patient has been placed on BuSpar and Wellbutrin has been discontinued. Patient will also be on clonazepam twice a day for 5 days to help control her increased anxiety symptoms while BuSpar takes affect. Patient will continue taking Zoloft. Patient also has esophagitis and gastritis and is on omeprazole and Carafate for that. Orders not resulted at time of discharge: Pending orders 10/08/18 20:29 Metanephrines, Plasma (Free) Stat Date of Encounter: 10/12/18 Time of Encounter: 11:19 - Discharge Diagnosis (1) Hypertensive urgency Priority: Primary Status: Acute (2) Intractable vomiting with nausea Priority: Secondary Status: Acute Qualifiers: Vomiting type: unspecified Qualified Code(s): R11.2 - Nausea with vomiting, unspecified (3) Headache Priority: Secondary Status: Acute Qualifiers: Headache type: tension-type Headache chronicity pattern: acute headache Intractability: not intractable Qualified Code(s): G44.209 - Tension-type headache, unspecified, not intractable (4) Morbid obesity with BMI of 40.0-44.9, adult Priority: Secondary Status: Chronic (5) Esophagitis Priority: Secondary Status: Acute (6) Gastritis Priority: Secondary Status: Acute Qualifiers: Gastritis type: unspecified gastritis Chronicity: acute Gastritis bleeding: without bleeding Qualified Code(s): K29.00 - Acute gastritis without bleeding (7) Protein calorie malnutrition Priority: Secondary Status: Acute Qualifiers: Protein-calorie malnutrition severity: mild Qualified Code(s): E44.1 - Mild protein-calorie malnutrition Hospital course: Ms. Stoddard is a 48 year old female Patient with history of essential hypertension and anxiety disorder who was hospitalized here with complaints of intractable nausea and vomiting and hypertensive urgency. This is his third admission to the hospital for similar complaints. Patient has been having hypertensive urgency intermittently associated with nausea and vomiting and increased anxiety. Nephrology was consulted and per their evaluation we suspected the patient may have hyperaldosteronism. As such patient has been placed on Aldactone and hydrochlorothiazide discontinued. For her anxiety, patient has been placed on BuSpar and Wellbutrin has been discontinued. Patient will also be on clonazepam twice a day for 5 days to help control her increased anxiety symptoms while BuSpar takes affect. Patient will continue taking Zoloft. Patient also has esophagitis and gastritis and is on omeprazole and Carafate for that. Discharge discussed with: patient, family, nurse, learning consultant - Time Spent with Patient Total time spent providing and/or coordinating discharge services: Time spent: Greater than 30 minutes (45 min) - Discharge Medications Prescriptions: New Spironolactone [Aldactone] 50 mg PO DAILY #30 tablet clonazePAM [Klonopin] 0.5 mg PO BID 5 Days #10 tablet Promethazine [Phenergan] 25 mg PO Q8HR PRN #20 tablet PRN Reason: Nausea Lisinopril [Zestril] 20 mg PO DAILY #30 tablet Potassium Chloride 20 meq PO DAILY #30 tab.er.prt Continued Sertraline [Zoloft] 50 mg PO DAILY Carvedilol [Coreg] 6.25 mg PO BIDWM #60 tablet Pantoprazole Sodium [Protonix] 40 mg PO BID #60 tablet. Sucralfate [Carafate] 1 gm PO TIDAC #90 tablet Discontinued buPROPion HCl [Zyban] 150 mg PO BID Lisinopril/Hydrochlorothiazide [Zestoretic 20-25 mg Tablet] 1 tab PO DAILY Home Medications: Sertraline [Zoloft] 50 mg PO DAILY 10/04/18 [History] Carvedilol [Coreg] 6.25 mg PO BIDWM #60 tablet 10/07/18 [Rx] Pantoprazole Sodium [Protonix] 40 mg PO BID #60 tablet. 10/07/18 [Rx] Sucralfate [Carafate] 1 gm PO TIDAC #90 tablet 10/07/18 [Rx] Lisinopril [Zestril] 20 mg PO DAILY #30 tablet 10/12/18 [Rx] Potassium Chloride 20 meq PO DAILY #30 tab.er.prt 10/12/18 [Rx] Promethazine [Phenergan] 25 mg PO Q8HR PRN #20 tablet 10/12/18 [Rx] Spironolactone [Aldactone] 50 mg PO DAILY #30 tablet 10/12/18 [Rx] clonazePAM [Klonopin] 0.5 mg PO BID 5 Days #10 tablet 10/12/18 [Rx] Allergies/Adverse Reactions: Allergy/AdvReac Type Severity Reaction Status Date / Time No Known Allergies Allergy Verified 10/09/18 16:23 Date of admission: 10/08/18 16:39 Primary care physician: Viraj Ulloa CNP Consults: 10/08/18 16:50 Consult to Nephrology [CONS] Routine Consulting Provider: Kidney Terri/NICOLE/TIM/AMADO Reason for Consult: HTN urgency Time Notified: 16:50 Call Completed: Yes Discharging clinician: Jess Bo Anticipated date of discharge: 10/12/18 - Constitutional Vitals: Temp Pulse Resp BP Pulse Ox 98.5 F 81 16 132/89 96 10/12/18 07:53 10/12/18 07:53 10/12/18 07:53 10/12/18 07:53 10/12/18 07:53 General appearance: Present: cooperative, A&O X 3, pleasant, answers questions appropriately Exam: General: Patient is alert, no acute distress, oriented x 3 ENT: Mucous membranes moist Respiratory: Good respiratory effort. Normal breath sounds. No wheezing or crackles. Cardiovascular: Regular rate and rhythm. s1 and s2 normal No clicks, rubs, gallops, or murmurs. No pedal edema Abdomen: Abdomen is soft, nontender. Bowel sounds are present Musculoskeletal: Spontaneously moving all extremities Skin: warm, dry, intact. Neuro: Alert oriented x 3 normal cranial nerves, no focal deficits - Patient Status Disposition: Home, Self-Care Condition: Good Functional capacity at discharge: independent ambulation Overall status at discharge: patient is progressing back to baseline - Ambulatory Orders Ambulatory Orders: Basic Metabolic Panel [CHEM] Time Frame: 1 Week, Facility: [facility], Location: Lab - Discharge Instructions Follow Up With: Viraj Ulloa CNP [Primary Care Provider] - (walk in appointments only) Maral Urbina MD [Partnered Physician] - (In 1-2 weeks) - Diet and Activity Activity: as per physical therapy Diet: low fat, low cholesterol, low salt diet
[2018-10-13 17:28] LABS: Metanephrine, Plasma 0.25 nmol/L (0.00-0.49)
== END 2018-10-12 12:44 | disposition home or self-care (01) | DRG 305 ==
LOC: 2NNU 13:15 → EMEROOARM 13:15 → 2NNU 18:55 → 2NENU 10-12 06:59
PROVIDERS: ADMIT Internal Medicine Nephrology; ATTEND Internal Medicine Nephrology